=== PATIENT | male | born 1945 | race Caucasian/White ===

== ENCOUNTER 2017-02-23 17:50 | Inpatient (IN) | payer MEDICARE ==
[~2017-02-23] VITALS: Ht 172.7 cm; Wt 112.0 kg
[~2017-02-23 17:50] MED LIST: ALBU8I INH; ASPI81 PO; ATOR10 PO; CARV3.125 PO; CLOP75 PO; HYDR50TA5 PO; NITR.4; OXYC1SOL5 PO; POTA-243 PO; RAMI2.5 PO
[2017-02-23 17:55] VITALS: BP 130/100; PULSE 133; RESP 37; TEMP 99.8; O2SAT 92
[2017-02-23] MEDS ORDERED: DILTIAZEM HCL 25 MG/5 ML VIAL ONE (18:04)
--- NOTE | 2017-02-23 18:11 | PD ---
HPI Chief Complaint: SOB Time Seen by Provider: 18:03 Travel History International Travel<30 days: No Contact w/Intl Traveler<30days: No History of Present Illness HPI 72yo M with PMH of CVA, HTN presents to the ED with c/o sob for a few weeks. Pt said he slipped and fell on right hip today and could not get up for 12 hours. Denies any head trauma. Pt has lower extremity wounds for 4 months. Denies any chest pain, n/v, abdominal pain, focal weakness or numbness. Pt had NSTEMI in 05/2015 PCI stent mid LAD by Dr. [place]. [facility] Past Medical History Arthritis: No Blood Disorders: No Anxiety: No Depression: No Heart Rhythm Problems: No Cancer: No Cardiovascular Problems: Yes High Cholesterol: Yes () Chest Pain: No Congestive Heart Failure: No Cerebrovascular Accident: Yes Diminished Hearing: No Endocrine: No Gastrointestinal Disorders: Yes (cholecystecomy 2006) Genitourinary: No Hypertension: Yes Immune Disorder: No Musculoskeletal: No Neurologic: Yes (Stroke February 2011) Psychiatric: No Reproductive: No Respiratory: No Migraines: No Seizures: No Sickle Cell Disease: No Past Surgical History Abdominal Surgery: No Cardiac Surgery: No Cholecystectomy: Yes Ear Surgery: No Endocrine Surgery: No Eye Surgery: No Genitourinary Surgery: No Gynecologic Surgery: No Oral Surgery: No Thoracic Surgery: No Other Surgery: Yes Social History Alcohol Use: Yes (OCCASSIONAL) Tobacco Use: Yes (1/2 PACK PER DAY) Substance Use: No Allergies-Medications (Allergen,Severity, Reaction): Coded Allergies: azithromycin (Unverified Allergy, Severe, Swelling, 10/28/16) erythromycin base (Unverified Allergy, Severe, Swelling, 10/28/16) penicillin G (Unverified Allergy, Severe, Swelling, 10/28/16) Reported Meds & Prescriptions Reported Meds & Active Scripts Active Nitroglycerin Tab 0.4 Mg Sl (Nitroglycerin) 0.4 Mg Subl 0.4 Mg .XX PRN 31 Days Oxycodone/Acetaminophen 5-325 mg/5Ml (Oxycodone W/ Acetaminophen) 5 mg/325 mg Tab 1 Tab PO Q6H PRN Lipitor 10 mg tab (Atorvastatin) 10 Mg Tab 10 Mg PO HS 31 Days Aspirin Low Strength (Aspirin) 81 Mg Chw 162 Mg PO DAILY 31 Days Coreg 3.125 mg (Carvedilol) 3.125 Mg Tab 3.125 Mg PO BID 31 Days Plavix (Clopidogrel Bisulfate) 75 Mg Tab 75 Mg PO DAILY 31 Days Ramipril 2.5 Mg Cap 2.5 Mg PO DAILY 31 Days Reported Ventolin Hfa (Albuterol Sulfate) 8 Gm Aero 1 Puff INH Q4H PRN * SHAKE WELL BEFORE USE * K-Dur (Potassium Chloride) 10 Meq Tabcr 10 Meq PO DAILY Hydrochlorothiazide 50 Mg Tab 50 Mg PO DAILY Review of Systems Except as stated in HPI: all other systems reviewed are Neg Physical Exam Narrative GENERAL: 72yo M in moderate distress. SKIN: Focused skin assessment warm/dry. HEAD: Atraumatic. Normocephalic. EYES: Pupils equal and round. No scleral icterus. No injection or drainage. ENT: No nasal bleeding or discharge. Mucous membranes pink and moist. NECK: Trachea midline. No JVD. CARDIOVASCULAR: Tachycardic in the 120s. No murmur appreciated. RESPIRATORY: + accessory muscle use.Decreased breath sounds. GASTROINTESTINAL: Abdomen soft, non-tender, nondistended. . MUSCULOSKELETAL:Bilateral lower extremity edema, nixon scaling rash that has been there for months. Right leg has some erythema surrounding the rash. NEUROLOGICAL: Awake and alert. No obvious cranial nerve deficits. Motor grossly within normal limits. Normal speech. PSYCHIATRIC: Appropriate mood and affect; insight and judgment normal. Data Data Last Documented VS Vital Signs Date Time Temp Pulse Resp B/P (MAP) Pulse Ox O2 Delivery O2 Flow Rate FiO2 02/23/17 19:20 127 20 171/87 (115) 100 BiPAP 60 02/23/17 18:40 4.00 02/23/17 17:55 99.8 Orders Orders Diltiazem Inj (Cardizem Inj) (02/23/17 18:04) Complete Blood Count With Diff (02/23/17 18:08) Basic Metabolic Panel (Bmp) (02/23/17 18:08) Act Partial Throm Time (Ptt) (02/23/17 18:08) Prothrombin Time / Inr (Pt) (02/23/17 18:08) Magnesium (Mg) (02/23/17 18:08) Ckmb (Isoenzyme) Profile (02/23/17 18:08) Troponin I (02/23/17 18:08) Arterial Blood Gas (Abg) (02/23/17 18:08) Chest, Single Ap (02/23/17 18:08) Methylprednisolone So Succ Inj (Solumedr (02/23/17 18:15) Albuterol-Ipratropium Neb (Duoneb Neb) (02/23/17 18:15) Hip, Uni(Ap&Lat) W Ap Pelvis (02/23/17 ) Blood Culture (02/23/17 18:11) Lactic Acid Sepsis Protocol (02/23/17 18:11) Diltiazem Inj (Cardizem Inj) (02/23/17 18:45) Sodium Chlor 0.9% 1000 Ml Inj (Ns 1000 M (02/23/17 19:30) Sodium Chlor 0.9% 1000 Ml Inj (Ns 1000 M (02/23/17 19:30) Vancomycin Inj (Vancomycin Inj) (02/23/17 19:30) Aztreonam Inj (Azactam Inj) (02/23/17 19:30) CKMB (02/23/17 18:24) CKMB% (02/23/17 18:24) Aspirin Chew (Aspirin Chew) (02/24/17 09:00) Atorvastatin (Lipitor) (02/23/17 21:00) Carvedilol (Coreg) (02/23/17 21:00) Clopidogrel (Plavix) (02/24/17 09:00) Nitroglycerin Sl (Nitrostat Sl) (02/23/17 19:45) Oxycodone-Acetamin 5-325 Mg (Percocet (02/23/17 19:45) Admit To Inpatient (02/23/17 ) Code Status (02/23/17 19:42) Vital Signs (Adult) ADAIR.Q1H (02/23/17 19:42) Elevate Head Of Bed (02/23/17 19:42) Activity Oob With Assistance (02/23/17 19:42) Intake + Output Q1H (02/23/17 19:42) Diet Npo (02/24/17 Breakfast) Sodium Chlor 0.9% 1000 Ml Inj (Ns 1000 M (02/23/17 19:42) Sodium Chloride 0.9% Flush (Ns Flush) (02/23/17 19:45) Sodium Chloride 0.9% Flush (Ns Flush) (02/23/17 21:00) Acetaminophen (Tylenol) (02/23/17 19:45) Morphine Inj (Morphine Inj) (02/23/17 19:45) Famotidine Inj (Pepcid Inj) (02/23/17 21:00) Lorazepam Inj (Ativan Inj) (02/23/17 19:45) Ondansetron Inj (Zofran Inj) (02/23/17 19:45) Zolpidem (Ambien) (02/23/17 19:45) Albuterol-Ipratropium Neb (Duoneb Neb) (02/23/17 20:00) Albuterol-Ipratropium Neb (Duoneb Neb) (02/23/17 19:45) Complete Blood Count With Diff (02/24/17 04:00) Comprehensive Metabolic Panel (02/24/17 04:00) Troponin I (02/23/17 19:42) Troponin I (02/24/17 01:42) Magnesium (Mg) (02/24/17 04:00) Phosphorus (Po4) (02/24/17 04:00) Lactic Acid (02/24/17 04:00) Chest, Single Ap (02/24/17 ) Electrocardiogram (02/23/17 19:42) Electrocardiogram (02/24/17 01:42) Pt Request For Service (02/23/17 19:42) Consult Cardiology (02/23/17 ) Cobbler Mckay / Telemetry ADAIR.Q8H (02/23/17 19:42) Scd Bilateral/Knee High ADAIR.BID (02/23/17 19:42) Francis Bilateral/Knee High ADAIR.QSHIFT (02/23/17 19:42) ^ Initiate Protocol (02/23/17 19:42) Instruction (02/23/17 19:42) Misc Nursing Information (02/23/17 19:45) Chlorhexidine 2% Cloth (Chlorhexidine 2% (02/24/17 04:00) Chlorhexidine 2% Cloth (Chlorhexidine 2% (02/23/17 19:45) Mrsa Pcr Surveillance (02/23/17 19:42) Docusate Sodium-Senna (Roxanne-Colace) (02/23/17 21:00) Magnesium Hydroxide Liq (Milk Of Magnesi (02/23/17 19:45) Sennosides (Senokot) (02/23/17 19:45) Bisacodyl Supp (Dulcolax Supp) (02/23/17 19:45) Lactulose Liq (Lactulose Liq) (02/23/17 19:45) Heparin Inj (Heparin Inj) (02/24/17 01:45) Heparin Inj (Heparin Inj) (02/24/17 01:45) Heparin-D5w 25,000 U/250 Ml (Heparin-D5w (02/23/17 19:45) Act Partial Throm Time (Ptt) (02/23/17 19:42) Prothrombin Time / Inr (Pt) (02/23/17 19:42) Cbc No Diff, Includes Plts (02/23/17 19:42) Act Partial Throm Time (Ptt) (02/24/17 02:42) Occult Blood (Hemoccult) Stool (02/23/17 19:42) Inpatient Certification (02/23/17 ) Blood Culture (02/23/17 19:45) Sputum Culture And Gram Stain (02/23/17 19:45) Urine Culture (02/23/17 19:45) Levofloxacin 750 Mg Premix Inj (Levaquin (02/23/17 20:00) Vancomycin Consult Pharmacy (Vancomycin (02/23/17 20:00) Aspirin Ec (Ecotrin Ec) (02/24/17 09:00) Cobbler Mckay / Telemetry ADAIR.Q8H (02/23/17 19:50) Heparin Inj (Heparin Inj) (02/24/17 02:00) Heparin Inj (Heparin Inj) (02/24/17 02:00) Heparin-D5w 25,000 U/250 Ml (Heparin-D5w (02/23/17 20:00) Admit Order (Ed Use Only) (02/23/17 19:52) Labs Laboratory Tests Test 02/23/17 18:24 02/23/17 19:30 White Blood Count 27.8 TH/MM3 Red Blood Count 4.83 MIL/MM3 Hemoglobin 14.2 GM/DL Hematocrit 42.7 % Mean Corpuscular Volume 88.5 FL Mean Corpuscular Hemoglobin 29.3 PG Mean Corpuscular Hemoglobin Concent 33.2 % Red Cell Distribution Width 14.4 % Platelet Count 172 TH/MM3 Mean Platelet Volume 9.4 FL Neutrophils (%) (Auto) 96.7 % Lymphocytes (%) (Auto) 1.7 % Monocytes (%) (Auto) 1.4 % Eosinophils (%) (Auto) 0.0 % Basophils (%) (Auto) 0.2 % Neutrophils # (Auto) 26.9 TH/MM3 Lymphocytes # (Auto) 0.5 TH/MM3 Monocytes # (Auto) 0.4 TH/MM3 Eosinophils # (Auto) 0.0 TH/MM3 Basophils # (Auto) 0.1 TH/MM3 CBC Comment DIFF FINAL Differential Comment Prothrombin Time 13.5 SEC Prothromb Time International Ratio 1.3 RATIO Activated Partial Thromboplast Time 35.6 SEC Blood Urea Nitrogen 35 MG/DL Creatinine 1.93 MG/DL Random Glucose 138 MG/DL Calcium Level 9.4 MG/DL Magnesium Level 1.9 MG/DL Sodium Level 136 MEQ/L Potassium Level 4.3 MEQ/L Chloride Level 99 MEQ/L Carbon Dioxide Level 28.5 MEQ/L Anion Gap 9 MEQ/L Estimat Glomerular Filtration Rate 34 ML/MIN Lactic Acid Level 3.2 mmol/L Total Creatine Kinase 1610 U/L Creatine Kinase MB 38.4 NG/ML Creatine Kinase MB % 2.4 % Troponin I 13.40 NG/ML Blood Gas Puncture Site RT RADIAL Blood Gas Patient Temperature 37.0 Blood Gas HCO3 27 mmol/L Blood Gas Base Excess 1.4 mmol/L Blood Gas Oxygen Saturation 98 % Arterial Blood pH 7.35 Arterial Blood Partial Pressure CO2 50 mmHg Arterial Blood Partial Pressure O2 245 mmHG Arterial Blood Oxygen Content 18.6 Vol % Arterial Blood Carboxyhemoglobin 1.2 % Arterial Blood Methemoglobin 0.5 % Blood Gas Hemoglobin 13.1 G/DL Oxygen Delivery Device BiPAP Blood Gas Ventilator Setting IPAP 20 EPAP 5 Blood Gas Inspired Oxygen 60 % [facility] Medical Decision Making Medical Screen Exam Complete: Yes Emergency Medical Condition: Yes Interpretation(s) Multiple EKGs done, EKG after cardizem showed sinus tachycardia at 122bpm. LAD. Q waves II, III, aVF. Differential Diagnosis Rhabdomyolysis vs. ACS vs. sepsis vs. pneumonia vs. cellulitis Narrative Course 72yo M was brought in because he slip and fell and could not get up for 12 hours. Said he has been sob for 3 weeks. Given 1 nebulizer treatment by EVAC which helped a little. Pt's O2 sat is in the low 90s on 3L NC. However, pt is very tachypneic breathing in the 40s. Pt is also tachycardic in the 130s. Cardizem given but HR only went down to 120s and repeat EKG had some p waves. Pt given NS IVF. Labs reviewed, leukocytosis at 27.8. H/H normal at 14.2/ 42.7. Lactic acid elevated at 3.2. Creatinine elevated at 1.93 which is increased from baseline. CXR showed cardiomegaly. No effusion or pneumothorax. Xray right hip showed suboptical exam. No displaced fracture or dislocation. Total of 2L NC IVS ordered as well as vancomycin and aztreonam. Pt placed on BIPAP because he is tachypneic. He said the nebulizer treatment helps a little but not really. Pt appears more comfortable on the BIPAP. Discussed with Dr. Roman and accepted to his service. CPK is elevated at 1610. Troponin is elevated at 13.40. Pt denies any chest pain. Denies any blood in stool or black stool. Do not see stemi criteria on repeat EKG when rate has slowed down a bit. Discussed with Dr. Hernandez from cardiology and will start on heparin. Critical Care Narrative Aggregate critical care time was 50 minutes. Time to perform other separately billable procedures was not included in the critical care time. My time did not include minutes spent treating any other patients simultaneously or on activities that did not directly contribute to the patient's treatment. The services I provided to this patient were to treat and/or prevent clinically significant deterioration that could result in: cardiovascular collapse or . I provided critical care services requiring my management, as noted below: Chart data review, documentation time, medication orders and management, vital sign assessments/reviewing monitor data, ordering and reviewing lab tests, ordering and interpreting/reviewing x-rays and diagnostic studies, care of the patient and discussion of the patient with the admitting physicians. Sepsis Criteria SIRS Criteria (2 or more): Heart rate over 90, WBC > 24057, < 4000 or > 10% bands Sepsis Criteria (SIRS+source): Infect source susp/known Severe Sepsis (+one): Lactate >2, Acute Oliguria/Renal Failure Diagnosis Primary Impression: Severe sepsis Additional Impressions: Non-ST elevation KS (NSTEMI) Rhabdomyolysis Qualified Codes: T79.6XXA - Traumatic ischemia of muscle, initial encounter Admitting Information Admitting Physician Requests: Roxanna Marie DO Feb 23, 2017 18:11
[2017-02-23] MEDS ORDERED: methylPREDNISolone SOD SUCC 125 MG/2 ML VIAL IV PUSH ONE (18:15)
[2017-02-23 18:40] VITALS: O2SAT 92
[2017-02-23] MEDS: RESP: ALBUTEROL 2.5 MG/IPRATROPIUM 0.5 MG NEB (SCH) INH ×2 (18:42→22:47)
[2017-02-23] MEDS ORDERED: DILTIAZEM HCL 25 MG/5 ML VIAL IV ONE (18:45)
--- NOTE | 2017-02-23 18:45 | RADRPT ---
EXAM DATE/TIME: 02/23/2017 18:23 [facility] COMPARISON: No previous studies available for comparison. INDICATIONS : Short of breath MEDICAL HISTORY : Hypertension. SURGICAL HISTORY : None. ENCOUNTER: Initial ACUITY: 1 day PAIN SCORE: 0/10 LOCATION: chest FINDINGS: A single view of the chest demonstrates cardiomegaly. Minimal basilar atelectasis. No effusion. No pn eumothorax. Tortuous aorta. CONCLUSION: 1. Cardiomegaly. No effusion or pneumothorax. Minimal basilar atelectasis. Helder Hernandez MD on February 23, 2017 at 18:42 Board Certified Radiologist. This report was verified electronically.
--- NOTE | 2017-02-23 18:47 | RADRPT ---
EXAM DATE/TIME: 02/23/2017 18:25 [facility] COMPARISON: No previous studies available for comparison. INDICATIONS : Right hip pain, fell MEDICAL HISTORY : Hypertension. SURGICAL HISTORY : None. ENCOUNTER: Initial ACUITY: 1 day PAIN SCORE: 3/10 LOCATION: Right Hip FINDINGS: Examination of the right hip was performed with AP Pelvis. The primary and secondary trabecular gregorio arsalan of the femoral neck is intact. The hip joint is of normal width without significant sclerosis or bony hypertrophy. The acetabulum is grossly intact. CONCLUSION: 1. Suboptimal exam due to patient size. No displaced fracture or dislocation identified. Helder Hernandez MD on February 23, 2017 at 18:44 Board Certified Radiologist. This report was verified electronically.
[2017-02-23 18:57] LABS: AUTOMATED NEUTROPHIL # 26.9 TH/MM3 (1.8-7.7); BASOPHIL # 0.1 TH/MM3 (0-0.2); BASOPHIL % 0.2 % (0.0-2.0); HEMATOCRIT 42.7 % (39.0-51.0); HEMO FLAGS DIFF FINAL; LYMPH % 1.7 % (9.0-44.0); LYMPHOCYTE # 0.5 TH/MM3 (1.0-4.8); MEAN CELL VOLUME 88.5 FL (80.0-100.0); MEAN CORPUSCULAR HEMOGLOBIN 29.3 PG (27.0-34.0); MEAN CORPUSCULAR HGB CONC 33.2 % (32.0-36.0); MONO % 1.4 % (0.0-8.0); NEUT % 96.7 % (16.0-70.0); PLATELET COUNT 172 TH/MM3 (150-450); RED BLOOD COUNT 4.83 MIL/MM3 (4.50-5.90); RED CELL DISTRIBUTION WIDTH 14.4 % (11.6-17.2); WHITE BLOOD COUNT 27.8 TH/MM3 (4.0-11.0)
[2017-02-23 19:08] LABS: APTT (PATIENT) 35.6 SEC (24.3-30.1); BICARBONATE 28.5 MEQ/L (21.0-32.0); INTERNATIONAL NORMALIZED RATIO 1.3 RATIO; MAGNESIUM 1.9 MG/DL (1.5-2.5); POTASSIUM 4.3 MEQ/L (3.5-5.1); PROTHROMBIN TIME - PATIENT 13.5 SEC (9.8-11.6)
[2017-02-23 19:10] VITALS: O2SAT 100
[2017-02-23 19:20] VITALS: BP 171/87; PULSE 127; RESP 20; O2SAT 100
[2017-02-23] MEDS ORDERED: VANCOMYCIN INJ 1,900 MG in SODIUM CHLORID 0.9% 500 ML INJ 500 ML IV ONE (19:30)
[2017-02-23] MEDS ORDERED: SODIUM CHLOR 0.9% 1000 ML INJ 1,000 ML IV ONE ×2 (19:30)
[2017-02-23] MEDS ORDERED: AZTREONAM INJ 2,000 MG in SODIUM CHLORIDE 0.9% INJ 100 ML IV ONE (19:30)
[2017-02-23] MEDS ORDERED: ZOLPIDEM TARTRATE 5 MG TAB PO PRN (19:45)
[2017-02-23] MEDS ORDERED: MORPHINE SULFATE 4 MG/ML INJ IV PUSH PRN (19:45)
[2017-02-23] MEDS ORDERED: NITROGLYCERIN 0.4 MG SL 25 TABS/BTL SL PRN (19:45)
[2017-02-23] MEDS ORDERED: MAGNESIUM HYDROXIDE SUSP 30 ML CUP PO PRN (19:45)
[2017-02-23] MEDS ORDERED: SODIUM CHLORIDE 0.9% FLUSH 10 ML FLUSH IV FLUSH PRN (19:45)
[2017-02-23] MEDS ORDERED: LACTULOSE SYRUP 20 GM/30 ML CUP PO PRN (19:45)
[2017-02-23] MEDS ORDERED: MISCELLANEOUS NURSING INFORMATION XX SCH (19:45)
[2017-02-23] MEDS ORDERED: BISACODYL 10 MG SUPP RECTAL PRN (19:45)
[2017-02-23] MEDS ORDERED: CHLORHEXIDINE GLUCONATE 2 % 1 PACK (2 CLOTHS) TOP PRN (19:45)
[2017-02-23] MEDS ORDERED: oxyCODONE/ACETAMINOPHEN 5 MG/325 MG TAB PO PRN (19:45)
[2017-02-23] MEDS ORDERED: ACETAMINOPHEN 325 MG TAB PO PRN (19:45)
[2017-02-23] MEDS ORDERED: SENNOSIDES 8.6 MG TAB PO PRN (19:45)
[2017-02-23] MEDS ORDERED: HEPARIN-D5W 25,000 U/250 ML 250 ML IV PRN (19:45)
[2017-02-23] MEDS ORDERED: ONDANSETRON HCL 4 MG/2 ML VIAL IV PUSH PRN (19:45)
[2017-02-23] MEDS ORDERED: LORazepam 2 MG/ML VIAL IV PUSH PRN (19:45)
--- NOTE | 2017-02-23 19:48 | HHI.HP ---
HPI Service Critical Care Medicine Primary Care Physician No Primary Care Physician Admission Diagnosis Diagnosis: Travel History International Travel<30 Days: No Contact w/Intl Traveler <30 Da: No Traveled to Known Affected Are: No History of Present Illness 72-year-old pleasant gentleman with past medical history of of CVA, HTN coronary artery disease status post stent placement to his mid LAD by Dr. Washington in May 2015 presents with complaints of shortness of breath that progressively worsening over last few weeks. Patient says he also slipped and fell on right hip today and could not get up for 12 hours. Denies any head trauma. He has a chronic venostatic lower extremity wounds for about last 4 months. Denies any chest pain, nausea or vomiting, abdominal pain, focal weakness or numbness. Review of Systems Constitutional: COMPLAINS OF: Diaphoretic episodes, DENIES: Fatigue, Fever, Weight gain, Weight loss, Chills, Dizziness, Change in appetite, Night Sweats Endocrine: DENIES: Heat/cold intolerance, Polydipsia, Polyuria, Polyphagia Eyes: DENIES: Blurred vision, Diplopia, Eye inflammation, Eye pain, Vision loss , Photosensitivity, Double Vision Ears, nose, mouth, throat: DENIES: Tinnitus, Hearing loss, Vertigo, Nasal discharge, Oral lesions, Throat pain, Hoarseness, Ear Pain, Running Nose, Epistaxis, Sinus Pain, Toothache, Odynophagia Respiratory: COMPLAINS OF: Shortness of breath, DENIES: Apneas, Cough, Snoring , Wheezing, Hemoptysis, Sputum production Cardiovascular: COMPLAINS OF: Lower Extremity Edema, DENIES: Chest pain, Palpitations, Syncope, Dyspnea on Exertion, PND, Orthopnea, Claudication Gastrointestinal: DENIES: Abdominal pain, Black stools, Bloody stools, Constipation, Diarrhea, Nausea, Vomiting, Difficulty Swallowing, Anorexia Genitourinary: DENIES: Sexual dysfunction, Urinary frequency, Urinary incontinence, Urgency, Hematuria, Dysuria, Nocturia, Penile Discharge, Testicular Pain, Testicular Swelling Musculoskeletal: DENIES: Joint pain, Muscle aches, Stiffness, Joint Swelling, Back pain, Neck pain Integumentary: DENIES: Abnormal pigmentation, Nail changes, Pruritus, Rash Hematologic/lymphatic: DENIES: Bruising, Lymphadenopathy Immunologic/allergic: DENIES: Eczema, Urticaria Neurologic: DENIES: Abnormal gait, Headache, Localized weakness, Paresthesias, Seizures, Speech Problems, Tremor, Poor Balance Psychiatric: DENIES: Anxiety, Confusion, Mood changes, Depression, Hallucinations, Agitation, Suicidal Ideation, Homicidal Ideation, Delusions Past Family Social History Allergies: Coded Allergies: azithromycin (Unverified Allergy, Severe, Swelling, 10/28/16) erythromycin base (Unverified Allergy, Severe, Swelling, 10/28/16) penicillin G (Unverified Allergy, Severe, Swelling, 10/28/16) Past Medical History CVA, Bilateral lower extremity edema Hypertension Coronary artery disease Status post stent placement in mid LAD in May 2012/Dr. Washington Past Surgical History Cholecystectomy Percutaneous angioplasty to LAD in May 2012 Reported Medications Reported Meds & Active Scripts Active Nitroglycerin Tab 0.4 Mg Sl (Nitroglycerin) 0.4 Mg Subl 0.4 Mg .XX PRN 31 Days Oxycodone/Acetaminophen 5-325 mg/5Ml (Oxycodone W/ Acetaminophen) 5 mg/325 mg Tab 1 Tab PO Q6H PRN Lipitor 10 mg tab (Atorvastatin) 10 Mg Tab 10 Mg PO HS 31 Days Aspirin Low Strength (Aspirin) 81 Mg Chw 162 Mg PO DAILY 31 Days Coreg 3.125 mg (Carvedilol) 3.125 Mg Tab 3.125 Mg PO BID 31 Days Plavix (Clopidogrel Bisulfate) 75 Mg Tab 75 Mg PO DAILY 31 Days Ramipril 2.5 Mg Cap 2.5 Mg PO DAILY 31 Days Reported Ventolin Hfa (Albuterol Sulfate) 8 Gm Aero 1 Puff INH Q4H PRN * SHAKE WELL BEFORE USE * K-Dur (Potassium Chloride) 10 Meq Tabcr 10 Meq PO DAILY Hydrochlorothiazide 50 Mg Tab 50 Mg PO DAILY Active Ordered Medications Current Medications Medications (Trade) Dose Ordered Sig/Alexandro Route PRN Reason Start Time Stop Time Status Last Admin Dose Admin Vancomycin HCl 1900 mg/Sodium Chloride 519 ml @ 250 mls/hr ONCE ONCE IV 02/23/17 19:30 02/23/17 21:34 Aspirin (Aspirin Chew) 162 mg DAILY PO 02/24/17 09:00 Atorvastatin Calcium (Lipitor) 10 mg HS PO 02/23/17 21:00 Carvedilol (Coreg) 3.125 mg BID PO 02/23/17 21:00 Clopidogrel Bisulfate (Plavix) 75 mg DAILY PO 02/24/17 09:00 Nitroglycerin (Nitrostat Sl) 0.4 mg Q5M PRN SL CHEST PAIN 02/23/17 19:45 Oxycodone/ Acetaminophen (Percocet 5-325 Mg) 1 tab Q6H PRN PO PAIN SCALE 3 TO 5 02/23/17 19:45 Future Hold Sodium Chloride 1,000 ml @ 84 mls/hr [id number] IV 02/23/17 19:42 Sodium Chloride (NS Flush) 2 ml UNSCH PRN IV FLUSH FLUSH AFTER USING IV ACCESS 02/23/17 19:45 Sodium Chloride (NS Flush) 2 ml BID IV FLUSH 02/23/17 21:00 Acetaminophen (Tylenol) 650 mg Q6H PRN PO PAIN 1-5 AND/OR FEVER >101F 02/23/17 19:45 Morphine Sulfate (Morphine Inj) 2 mg Q2H PRN IV PUSH PAIN SCALE 6 TO 10 02/23/17 19:45 Famotidine (Pepcid Inj) 20 mg DAILY IV PUSH 02/23/17 21:00 Lorazepam (Ativan Inj) 1 mg Q1H PRN IV PUSH Agitation/Sedation 02/23/17 19:45 Ondansetron HCl (Zofran Inj) 4 mg Q6H PRN IV PUSH NAUSEA OR VOMITING 02/23/17 19:45 Zolpidem Tartrate (Ambien) 5 mg HS PRN PO INSOMNIA 02/23/17 19:45 Albuterol/ Ipratropium (Duoneb Neb) 1 ampule Q4HR NEB INH 02/23/17 20:00 Albuterol/ Ipratropium (Duoneb Neb) 1 ampule Q2HR NEB PRN INH WHEEZING 02/23/17 19:45 Miscellaneous Information 1 [id number] XX 02/23/17 19:45 Chlorhexidine Gluconate (Chlorhexidine 2% Cloth) 3 pack Taper DAILY@04 TOP 02/24/17 04:00 02/20/18 03:59 Chlorhexidine Gluconate (Chlorhexidine 2% Cloth) 3 pack UNSCH PRN TOP HYGIENIC CARE 02/23/17 19:45 Senna/Docusate Sodium (Roxanne-Colace) 1 tab BID PO 02/23/17 21:00 Magnesium Hydroxide (Milk Of Magnesia Liq) 30 ml Q12H PRN PO Mild constipation 02/23/17 19:45 Sennosides (Senokot) 17.2 mg Q12H PRN PO Moderate constipation 02/23/17 19:45 Bisacodyl (Dulcolax Supp) 10 mg DAILY PRN RECTAL SEVERE CONSITIPATION 02/23/17 19:45 Lactulose (Lactulose Liq) 30 ml DAILY PRN PO SEVERE CONSITIPATION 02/23/17 19:45 Aztreonam 2000 mg/ Sodium Chloride 100 ml @ 200 mls/hr Q8H IV 02/23/17 20:00 Levofloxacin/ Dextrose 150 ml @ 100 mls/hr Q48H IV 02/23/17 20:00 Pharmacy Profile Note 0 ml @ 0 mls/hr UNSCH OTHER 02/23/17 20:00 Aspirin (Ecotrin Ec) 325 mg DAILY PO 02/24/17 09:00 Heparin Sodium (Porcine) (Heparin Inj) 5,000 units UNSCH PRN IV PUSH APTT LESS THAN 25 02/24/17 02:00 Heparin Sodium (Porcine) (Heparin Inj) 2,500 units UNSCH PRN IV PUSH APTT 25 TO 39 02/24/17 02:00 Heparin Sodium/ Dextrose 250 ml @ 10 mls/hr TITRATE PRN IV Coagulation Management 02/23/17 20:00 Family History No family history significant for early coronary artery disease or malignancy Social History Alcohol Use: Yes (OCCASSIONAL) Tobacco Use: Yes (1/2 PACK PER DAY) Substance Use: No Physical Exam Vital Signs Vital Signs Date Time Temp Pulse Resp B/P (MAP) Pulse Ox O2 Delivery O2 Flow Rate FiO2 02/23/17 19:20 127 20 171/87 (115) 100 BiPAP 60 02/23/17 18:40 92 Nasal Cannula 4.00 02/23/17 17:55 99.8 133 37 130/100 (110) 92 Nasal Cannula 4.00 Physical Exam GENERAL: 72 years old morbidly obese male in moderate respiratory distress on facemask BiPAP SKIN: Focused skin assessment warm/dry. HEAD: Atraumatic. Normocephalic. EYES: Pupils equal and round. No scleral icterus. No injection or drainage. ENT: No nasal bleeding or discharge. Mucous membranes pink and moist. NECK: Trachea midline. No JVD. CARDIOVASCULAR: Tachycardic in the 120s. No murmur appreciated. RESPIRATORY: + accessory muscle use.Decreased breath sounds. GASTROINTESTINAL: Abdomen soft, non-tender, nondistended. . MUSCULOSKELETAL:Bilateral lower extremity edema, nixon scaling rash that has been there for months. Right leg has some erythema surrounding the rash. NEUROLOGICAL: Awake and alert. No obvious cranial nerve deficits. Motor grossly within normal limits. Normal speech. Laboratory Laboratory Tests Test 02/23/17 18:24 White Blood Count 27.8 Red Blood Count 4.83 Hemoglobin 14.2 Hematocrit 42.7 Mean Corpuscular Volume 88.5 Mean Corpuscular Hemoglobin 29.3 Mean Corpuscular Hemoglobin Concent 33.2 Red Cell Distribution Width 14.4 Platelet Count 172 Mean Platelet Volume 9.4 Neutrophils (%) (Auto) 96.7 Lymphocytes (%) (Auto) 1.7 Monocytes (%) (Auto) 1.4 Eosinophils (%) (Auto) 0.0 Basophils (%) (Auto) 0.2 Neutrophils # (Auto) 26.9 Lymphocytes # (Auto) 0.5 Monocytes # (Auto) 0.4 Eosinophils # (Auto) 0.0 Basophils # (Auto) 0.1 CBC Comment DIFF FINAL Differential Comment Prothrombin Time 13.5 Prothromb Time International Ratio 1.3 Activated Partial Thromboplast Time 35.6 Blood Urea Nitrogen 35 Creatinine 1.93 Random Glucose 138 Calcium Level 9.4 Magnesium Level 1.9 Sodium Level 136 Potassium Level 4.3 Chloride Level 99 Carbon Dioxide Level 28.5 Anion Gap 9 Estimat Glomerular Filtration Rate 34 Lactic Acid Level 3.2 Total Creatine Kinase 1610 Troponin I 13.40 Date/Time Source Procedure Growth Status 02/23/17 18:24 Blood Peripheral Aerobic Blood Culture Pending Received 02/23/17 18:24 Blood Peripheral Anaerobic Blood Culture Pending Received Result Diagram: 02/23/17 1824 02/23/174 Caprini VTE Risk Assessment Caprini VTE Risk Assessment: Mod/High Risk (score >= 2) Caprini Risk Assessment Model Point Value = 1 Point Value = 2 Point Value = 3 Point Value = 5 Age 41-60 Minor surgery BMI > 25 kg/m2 Swollen legs Varicose veins or History of unexplained or recurrent spontaneous Oral contraceptives or hormone replacement Sepsis (< 1 month) Serious lung disease, including pneumonia (< 1 month) Abnormal pulmonary function Acute myocardial infarction Congestive heart failure (< 1 month) History of inflammatory bowel disease Medical patient at bed rest Age 61-74 Arthroscopic surgery Major open surgery (> 45 min) Laparoscopic surgery (> 45 min) Malignancy Confined to bed (> 72 hours) Immobilizing plaster cast Central venous access Age >= 75 History of VTE Family history of VTE Factor V Leiden Prothrombin [id number] Lupus anticoagulant Anticardiolipin antibodies Elevated serum homocysteine Heparin-induced thrombocytopenia Other congenital or acquired thrombophilia Stroke (< 1 month) Elective arthroplasty Hip, pelvis, or leg fracture Acute spinal cord injury (< 1 month) Prophylaxis Regimen Total Risk Factor Score Risk Level Prophylaxis Regimen 0-1 Low Early ambulation 2 Moderate Order ONE of the following: *Sequential Compression Device (SCD) *Heparin 5000 units SQ BID 3-4 Higher Order ONE of the following medications: *Heparin 5000 units SQ TID *Enoxaparin/Lovenox 40 mg SQ daily (WT < 150 kg, CrCl > 30 mL/min) *Enoxaparin/Lovenox 30 mg SQ daily (WT < 150 kg, CrCl > 10-29 mL/min) *Enoxaparin/Lovenox 30 mg SQ BID (WT < 150 kg, CrCl > 30 mL/min) AND/OR *Sequential Compression Device (SCD) 5 or more Highest Order ONE of the following medications: *Heparin 5000 units SQ TID (Preferred with Epidurals) *Enoxaparin/Lovenox 40 mg SQ daily (WT < 150 kg, CrCl > 30 mL/min) *Enoxaparin/Lovenox 30 mg SQ daily (WT < 150 kg, CrCl > 10-29 mL/min) *Enoxaparin/Lovenox 30 mg SQ BID (WT < 150 kg, CrCl > 30 mL/min) AND *Sequential Compression Device (SCD) Assessment and Plan Assessment and Plan Non-STEMI - Heparin drip - Continue aspirin and Plavix - Continue atorvastatin - Cardiology consultation - Serum troponin series - Series of EKGs - Echocardiogram Respiratory failure - Due to above - BiPAP when necessary - DuoNeb scheduled and when necessary Leukocytosis - Stress reaction to acute AR - Considering however underlying infection - Panculture - Broad-spectrum antibiotics for now - De-escalate or DC per sensitivity results Acute kidney injury - IV fluid hydration - Strict I's and O's - Monitor electrolytes and creatinine Rhabdo - Due to trauma mentioned in H&P - IV fluid hydration - Repeat CPK a.m. Hypertension - Coreg DVT GI prophylaxis - Teds SCDs - Heparin drip - IV Pepcid while nothing by mouth Critical Care: The total critical care time was 35 minutes. Time to perform other separately billable procedures was not included in the critical care time. Rich Roman MD Feb 23, 2017 19:48
[2017-02-23 19:52] LABS: CKMB 38.4 NG/ML (0.5-3.6)
[2017-02-23 20:00] VITALS: BP 139/86; PULSE 126; RESP 20; O2SAT 99
[2017-02-23] MEDS ORDERED: AZTREONAM INJ 2,000 MG in SODIUM CHLORIDE 0.9% INJ 100 ML IV SCH (20:00)
[2017-02-23] MEDS ORDERED: Vancomycin Consult Pharmacy 1 EA OTHER SCH (20:00)
[2017-02-23 20:46] LABS: LACTIC ACID GHOST NOT REPORTABLE
[2017-02-23] MEDS: DOCUSATE SODIUM 50 MG/SENNA 8.6 MG TAB PO SCH (21:00)
[2017-02-23] MEDS: SODIUM CHLOR 0.9% 1000 ML INJ 1,000 ML IV SCH (21:23)
[2017-02-23] MEDS: SODIUM CHLORIDE 0.9% FLUSH 10 ML FLUSH IV FLUSH SCH (21:23)
[2017-02-23] MEDS: LEVOFLOXACIN 750 MG PREMIX INJ 150 ML IV SCH (21:23)
[2017-02-23 21:30] LABS: HEMATOCRIT 38.9 % (39.0-51.0); MEAN CELL VOLUME 87.2 FL (80.0-100.0); MEAN CORPUSCULAR HEMOGLOBIN 28.5 PG (27.0-34.0); MEAN CORPUSCULAR HGB CONC 32.7 % (32.0-36.0); PLATELET COUNT 172 TH/MM3 (150-450); RED BLOOD COUNT 4.46 MIL/MM3 (4.50-5.90); RED CELL DISTRIBUTION WIDTH 13.8 % (11.6-17.2); WHITE BLOOD COUNT 37.5 TH/MM3 (4.0-11.0)
[2017-02-23 21:35] LABS: REVIEW FLAG FINAL
[2017-02-23 21:37] LABS: APTT (PATIENT) 36.2 SEC (24.3-30.1); INTERNATIONAL NORMALIZED RATIO 1.4 RATIO
[2017-02-23 22:25] LABS: BLOOD GAS BASE EXCESS 1.4 mmol/L (-2-2); BLOOD GAS CARBOXYHEMOGLOBIN 1.2 % (0-4); BLOOD GAS HCO3 27 mmol/L (22-26); BLOOD GAS METHEMOGLOBIN 0.5 % (0-2); BLOOD GAS O2 HGB SATURATION 98 % (90-100); BLOOD GAS OXYGEN CONTENT 18.6 Vol % (12.0-20.0); BLOOD GAS PCO2 50 mmHg (38-42); BLOOD GAS PO2 245 mmHG (61-120); BLOOD GAS TOTAL HGB 13.1 G/DL (12.0-16.0)
[2017-02-23 22:26] LABS: CRITICAL VALUE NO; DRAW SITE RT RADIAL; FIO2 60 %; NUMBER OF ARTERIAL PUNCTURES 1; OXYGEN DEVICE BiPAP; STAT YES; ULNAR PULSE PRESENT; VENT SETTINGS IPAP 20 EPAP 5
[2017-02-23 23:27] VITALS: BP 143/73; PULSE 99; RESP 20; O2SAT 97
[2017-02-24] VITALS (24 sets, daily range): BP systolic 84–121; BP diastolic 53–74; PULSE 92–117; RESP 22–120; TEMP 98–99; O2SAT 95–100
[2017-02-24] MEDS: CHLORHEXIDINE GLUCONATE 2 % 1 PACK (2 CLOTHS) TOP SCH (01:33)
[2017-02-24] MEDS: FAMOTIDINE 20 MG/2 ML VIAL IV PUSH SCH ×2 (01:41→09:00)
[2017-02-24] MEDS: ATORVASTATIN 10 MG TAB PO SCH ×2 (01:41→21:00)
[2017-02-24] MEDS: CARVEDILOL 3.125 MG TAB PO SCH ×3 (01:42→20:50)
[2017-02-24] MEDS ORDERED: HEPARIN SODIUM - IV 10,000 UNITS/10 ML VIAL IV PRN ×2 (01:45)
[2017-02-24] MEDS: SODIUM CHLOR 0.9% 1000 ML INJ 1,000 ML IV SCH ×2 (01:48→12:34)
[2017-02-24] MEDS ORDERED: HEPARIN SODIUM - IV 10,000 UNITS/10 ML VIAL IV PUSH PRN ×2 (02:00)
[2017-02-24 03:31] LABS: ALKALINE PHOSPHATASE 93 U/L (45-117); ALT (GPT) 36 U/L (12-78); ANION GAP 8 MEQ/L (5-15); AST (GOT) 89 U/L (15-37); BICARBONATE 24.8 MEQ/L (21.0-32.0); BLOOD UREA NITROGEN 39 MG/DL (7-18); CHLORIDE 107 MEQ/L (98-107); CREATINE KINASE 846 U/L (39-308); GLOMERULAR FILTRATION RATE 38 ML/MIN (>89); MAGNESIUM 1.8 MG/DL (1.5-2.5); POTASSIUM 4.7 MEQ/L (3.5-5.1); SODIUM (NA) 140 MEQ/L (136-145); TOTAL BILIRUBIN ADULT 0.5 MG/DL (0.2-1.0)
[2017-02-24 03:52] LABS: CKMB 21.7 NG/ML (0.5-3.6)
[2017-02-24] MEDS: HEPARIN-D5W 25,000 U/250 ML 250 ML IV PRN (04:04)
[2017-02-24] MEDS: AZTREONAM INJ 2,000 MG in SODIUM CHLORIDE 0.9% INJ 100 ML IV SCH ×3 (04:09→22:00)
--- NOTE | 2017-02-24 04:33 | RADRPT ---
EXAM DATE/TIME: 02/24/2017 03:25 [facility] COMPARISON: CHEST SINGLE AP, February 23, 2017, 18:23. INDICATIONS : Shortness of breath. MEDICAL HISTORY : Hypertension. SURGICAL HISTORY : None. ENCOUNTER: Subsequent ACUITY: 2 days PAIN SCORE: 0/10 LOCATION: Bilateral chest FINDINGS: Patient rotation towards the right face and asymmetric density right versus left. The lungs are symm etrically aerated and no definite infiltrate seen. Stable mild elevation right hemidiaphragm. When taking into account the rotational effects, no new findings seen.. CONCLUSION: No focal infiltrates seen. Cruz Connelly MD on February 24, 2017 at 4:31 Board Certified Radiologist. This report was verified electronically.
[2017-02-24] MEDS: RESP: ALBUTEROL 2.5 MG/IPRATROPIUM 0.5 MG NEB (SCH) INH ×5 (04:51→20:33)
--- NOTE | 2017-02-24 08:45 | HHI.CCPN ---
Subjective Remarks/Hospital Course 72-year-old pleasant gentleman with past medical history of of CVA, HTN coronary artery disease status post stent placement to his mid LAD by Dr. Washington in May 2015 presents with complaints of shortness of breath that progressively worsening over last few weeks. Patient says he also slipped and fell on right hip today and could not get up for 12 hours. Denies any head trauma. He has a chronic venostatic lower extremity wounds for about last 4 months. Denies any chest pain, nausea or vomiting, abdominal pain, focal weakness or numbness. 02/24 Patient is lying in bed in NAD. Afebrile.On Heparin drip. Objective Vital Signs Date Time Temp Pulse Resp B/P (MAP) Pulse Ox O2 Delivery O2 Flow Rate FiO2 02/24/17 07:56 98 Nasal Cannula 5.00 02/24/17 06:00 99 02/24/17 06:00 30 100/60 (73) 02/24/17 04:00 98.9 02/23/17 23:27 40 Intake and Output 02/24/17 02/24/17 02/25/17 08:00 16:00 00:00 Intake Total 1073 ml Output Total 350 ml Balance 723 ml Result Diagram: 02/23/17 2100 02/24/17 0243 Other Results L Laboratory Tests Test 02/23/17 18:24 02/23/17 19:30 02/23/17 21:00 02/23/17 21:05 White Blood Count 27.8 TH/MM3 37.5 TH/MM3 Red Blood Count 4.83 MIL/MM3 4.46 MIL/MM3 Hemoglobin 14.2 GM/DL 12.7 GM/DL Hematocrit 42.7 % 38.9 % Mean Corpuscular Volume 88.5 FL 87.2 FL Mean Corpuscular Hemoglobin 29.3 PG 28.5 PG Mean Corpuscular Hemoglobin Concent 33.2 % 32.7 % Red Cell Distribution Width 14.4 % 13.8 % Platelet Count 172 TH/MM3 172 TH/MM3 Mean Platelet Volume 9.4 FL 9.1 FL Neutrophils (%) (Auto) 96.7 % Lymphocytes (%) (Auto) 1.7 % Monocytes (%) (Auto) 1.4 % Eosinophils (%) (Auto) 0.0 % Basophils (%) (Auto) 0.2 % Neutrophils # (Auto) 26.9 TH/MM3 Lymphocytes # (Auto) 0.5 TH/MM3 Monocytes # (Auto) 0.4 TH/MM3 Eosinophils # (Auto) 0.0 TH/MM3 Basophils # (Auto) 0.1 TH/MM3 CBC Comment DIFF FINAL Differential Comment Prothrombin Time 13.5 SEC 14.0 SEC Prothromb Time International Ratio 1.3 RATIO 1.4 RATIO Activated Partial Thromboplast Time 35.6 SEC 36.2 SEC Blood Urea Nitrogen 35 MG/DL Creatinine 1.93 MG/DL Random Glucose 138 MG/DL Calcium Level 9.4 MG/DL Magnesium Level 1.9 MG/DL Sodium Level 136 MEQ/L Potassium Level 4.3 MEQ/L Chloride Level 99 MEQ/L Carbon Dioxide Level 28.5 MEQ/L Anion Gap 9 MEQ/L Estimat Glomerular Filtration Rate 34 ML/MIN Lactic Acid Level 3.2 mmol/L 2.6 mmol/L Total Creatine Kinase 1610 U/L Creatine Kinase MB 38.4 NG/ML Creatine Kinase MB % 2.4 % Troponin I 13.40 NG/ML 13.90 NG/ML Blood Gas Puncture Site RT RADIAL Blood Gas Patient Temperature 37.0 Blood Gas HCO3 27 mmol/L Blood Gas Base Excess 1.4 mmol/L Blood Gas Oxygen Saturation 98 % Arterial Blood pH 7.35 Arterial Blood Partial Pressure CO2 50 mmHg Arterial Blood Partial Pressure O2 245 mmHG Arterial Blood Oxygen Content 18.6 Vol % Arterial Blood Carboxyhemoglobin 1.2 % Arterial Blood Methemoglobin 0.5 % Blood Gas Hemoglobin 13.1 G/DL Oxygen Delivery Device BiPAP Blood Gas Ventilator Setting IPAP 20 EPAP 5 Blood Gas Inspired Oxygen 60 % Test 02/24/17 00:15 02/24/17 02:43 Nasal Screen MRSA (PCR) MRSA NOT DETECTED Blood Urea Nitrogen 39 MG/DL Creatinine 1.76 MG/DL Random Glucose 175 MG/DL Total Protein 7.4 GM/DL Albumin 2.1 GM/DL Calcium Level 8.3 MG/DL Phosphorus Level 3.5 MG/DL Magnesium Level 1.8 MG/DL Alkaline Phosphatase 93 U/L Aspartate Amino Transf (AST/SGOT) 89 U/L Alanine Aminotransferase (ALT/SGPT) 36 U/L Total Bilirubin 0.5 MG/DL Sodium Level 140 MEQ/L Potassium Level 4.7 MEQ/L Chloride Level 107 MEQ/L Carbon Dioxide Level 24.8 MEQ/L Anion Gap 8 MEQ/L Estimat Glomerular Filtration Rate 38 ML/MIN Lactic Acid Level 2.2 mmol/L Total Creatine Kinase 846 U/L Creatine Kinase MB 21.7 NG/ML Creatine Kinase MB % 2.6 % Troponin I 12.80 NG/ML Imaging Last Impressions Chest X-Ray 02/24/17 0000 Signed Impressions: Service Date/Time: Friday, February 24, 2017 03:25 - CONCLUSION: No focal infiltrates seen. Cruz Connelly MD Hip and Pelvis X-Ray 02/23/17 0000 Signed Impressions: Service Date/Time: Thursday, February 23, 2017 18:25 - CONCLUSION: 1. Suboptimal exam due to patient size. No displaced fracture or dislocation identified. Helder Hernandez MD Objective Remarks GENERAL: 72 years old morbidly obese male in moderate respiratory distress on facemask BiPAP SKIN: Focused skin assessment warm/dry. HEAD: Atraumatic. Normocephalic. EYES: Pupils equal and round. No scleral icterus. No injection or drainage. ENT: No nasal bleeding or discharge. Mucous membranes pink and moist. NECK: Trachea midline. No JVD. CARDIOVASCULAR: Tachycardic in the 120s. No murmur appreciated. RESPIRATORY: + accessory muscle use.Decreased breath sounds. GASTROINTESTINAL: Abdomen soft, non-tender, nondistended. . MUSCULOSKELETAL:Bilateral lower extremity edema, nixon scaling rash that has been there for months. Right leg has some erythema surrounding the rash. NEUROLOGICAL: Awake and alert. No obvious cranial nerve deficits. Motor grossly within normal limits. Normal speech. A/P Assessment and Plan Non-STEMI Resp Insuff Leukocytosis GUALBERTO Rhabdo Mild lactic acidemia Hypertension Chronic venous stasis Plan Neuro: Awake and alert Pulm: Continue with oxygen keep sat >92% Bronchodilators, NIPPV PRN for resp distress CV: Monitor HR and BP keep MAP>65mmHg Continue ASA< Lipitor, Coreg, Plavix. On Heparin drip- monitor PTT. For 2D echo, cards consulted : Monitor renal function, I/O's, avoid nephrotoxins On NS@84ml/hr GI: On PO diet ID: Continue with abx ( Aztreonam, Levaquin, Vanco) monitor for signs of infections ( Fever, WBC) Follow up on Blood and sputum cx Wound consult for Chronic venous stasis Heme: Monitor CBC, coags- on Heparin drip Endo: SSI for glycemic control GI prophylaxis- on Pepcid DVT prophylaxis- On Heparin drip Level 3 Zion Driver MD Feb 24, 2017 08:45
[2017-02-24] MEDS ORDERED: ASPIRIN 81 MG CHEW TAB PO SCH (09:00)
[2017-02-24] MEDS: SODIUM CHLORIDE 0.9% FLUSH 10 ML FLUSH IV FLUSH SCH ×2 (09:00→20:50)
[2017-02-24] MEDS: DOCUSATE SODIUM 50 MG/SENNA 8.6 MG TAB PO SCH ×2 (09:00→20:50)
--- NOTE | 2017-02-24 09:03 | MB ---
cc: DAYANARA ODONNELL DATE OF CONSULTATION 02/24/2017 DATE OF 1945 REASON FOR CONSULTATION Acute [id number] myocardial infarction. HISTORY OF PRESENT ILLNESS The patient is a 72-year-old white male with a history of CVA, hypertension, hyperlipidemia, coronary artery disease, mild ischemic cardiomyopathy who presented to the hospital after a fall. The patient states that ever since his stroke, he has had problems with balance and equilibrium. On the day before admission, he did fall to the ground after losing his balance. He was unable to get up for 12 hours. However, he was eventually able to drag himself to his phone to call emergency services. Troponin levels were checked here in the hospital and found to be abnormal. The patient denies any recent chest pains although he has experienced increased dyspnea probably for the past 12 weeks. He denies pleurisy, syncope, near-syncope, palpitations, change in chronic constant mild pedal edema, paroxysmal nocturnal dyspnea. He also denies fevers, although on the night before admission, he thinks he may have had some chills. PAST MEDICAL HISTORY 1. History of left posterior capsule CVA February 2011. 2. Hypertension 3. Hyperlipidemia 4. Coronary artery disease status post non-ST elevation myocardial infarction May 2015. Cardiac catheterization at that time by a Dr. Chris Washington showed 20% left main, 95% mid LAD stented with a 3.0 mm bare metal stent, 95% ostial diagonal stenosis, normal left circumflex, 50% proximal right coronary artery stenosis, 80% distal right coronary artery, 95% proximal posterior descending artery. also did bare-metal stenting of the posterolateral branch using a 2.5 mm stent the day after stenting the patient's left anterior descending. 5. History of mild ischemic cardiomyopathy with ejection fraction of 45% by cardiac catheterization last year with moderate to severe hypokinesis of the anterolateral wall. PAST SURGICAL HISTORY Cholecystectomy. MEDICATIONS Cardiac medications at home: 1. Lipitor 10 mg q.h.s. 2. Aspirin 162 mg daily 3. Coreg 3.125 mg b.i.d. 4. Ramipril 2.5 mg daily 5. Plavix 75 mg daily 6. K-Dur 10 mg once daily 7. Hydrochlorothiazide 50 mg daily ALLERGIES AZITHROMYCIN, ERYTHROMYCIN AND PENICILLIN. FAMILY HISTORY Noncontributory SOCIAL HISTORY The patient smokes about A half a pack of cigarettes per day. He denies alcohol abuse. REVIEW OF SYSTEMS As in the history of present illness, otherwise negative or noncontributory. He also denies headache, visual changes, unilateral weakness or numbness, abdominal pain, melena, dyspepsia. He has noted mild diarrhea in the last few days. PHYSICAL EXAM On physical examination, his blood pressure 100/60 with a pulse of 100, respirations 30. In general, he is a well-developed, well-nourished white male in no acute distress HEENT: On examination, jugular venous pressure is very difficult to assess. Carotid pulses are 2+ bilaterally without bruits. CHEST: Examination of the chest reveals clear lung hancock. CARDIAC: On cardiac examination, he has a regular rhythm and rate without S3, S4 or murmur. ABDOMEN: On abdominal examination, he has a soft, obese, nontender abdomen. Bowel sounds are present. There is no definite hepatosplenomegaly. EXTREMITIES: Examination of extremities reveals no clubbing, cyanosis or edema. There are severe chronic venostasis changes evident. EKG shows possible atrial fibrillation, inferior wall infarct, age undetermined, incomplete right bundle branch block, lateral T-wave abnormalities consider ischemia. LABORATORY DATA Includes WBC 37.5, hemoglobin 12.7, platelets 172. BUN 39, creatinine 1.76, troponin 13.9, CK 846, potassium 4.7. Chest x-ray shows no acute disease. IMPRESSION Acute [id number] myocardial infarction in this 72-year-old white male with a history of known coronary artery disease status post percutaneous coronary interventions by Dr. Chris Washington last year, history of CVA, hypertension, hyperlipidemia, ejection fraction 45%. Initial EKGs are suboptimal. They also suggest possible SVT. At this time, he is in sinus tachycardia. He has had no definite chest pain symptoms recently. His dyspnea may be his angina equivalent. His dyspnea has resolved. Because of the abnormal cardiac enzymes, he has been recommended repeat cardiac catheterization with possible percutaneous coronary intervention the risks of which have been explained him including, but not limited to , myocardial infarction, stroke, arrhythmia, bleeding, infection, renal failure. He agrees to proceed. RECOMMENDATIONS 1. Cardiac catheterization at some point this admission. We will wait for his renal function to return to baseline, and we will wait for further workup of his marked leukocytosis. 2. Continue beta kelsie therapy and hold STEVAN inhibitor given his renal insufficiency. 3. Continue daily aspirin and heparin. 4. Check a fasting lipid profile and continue statin therapy. 5. Repeat his EKG later today. MD OBDULIA Lincoln/MUKUND /8:29 AM /1:09 PM LANDY
[2017-02-24] MEDS: CLOPIDOGREL 75 MG TAB PO SCH (09:05)
[2017-02-24] MEDS: ASPIRIN EC 325 MG TABEC PO SCH (09:05)
[2017-02-24 09:08] LABS: APTT (PATIENT) 44.3 SEC (24.3-30.1); BASOPHIL % 0.1 % (0.0-2.0); HEMATOCRIT 35.5 % (39.0-51.0); HEMO FLAGS DIFF FINAL; LYMPH % 1.9 % (9.0-44.0); LYMPHOCYTE # 0.5 TH/MM3 (1.0-4.8); MEAN CORPUSCULAR HEMOGLOBIN 28.4 PG (27.0-34.0); MEAN CORPUSCULAR HGB CONC 32.3 % (32.0-36.0); MONO % 1.9 % (0.0-8.0); NEUT % 96.1 % (16.0-70.0); PLATELET COUNT 139 TH/MM3 (150-450); RED BLOOD COUNT 4.04 MIL/MM3 (4.50-5.90); WHITE BLOOD COUNT 27.1 TH/MM3 (4.0-11.0)
[2017-02-24 12:28] LABS: BLOOD GAS BASE EXCESS -1.7 mmol/L (-2-2); BLOOD GAS CARBOXYHEMOGLOBIN 0.6 % (0-4); BLOOD GAS HCO3 24 mmol/L (22-26); BLOOD GAS METHEMOGLOBIN 1.1 % (0-2); BLOOD GAS O2 HGB SATURATION 95 % (90-100); BLOOD GAS OXYGEN CONTENT 17.8 Vol % (12.0-20.0); BLOOD GAS PCO2 49 mmHg (38-42); BLOOD GAS PO2 106 mmHg (61-120); BLOOD GAS TOTAL HGB 13.2 G/DL (12.0-16.0); CRITICAL VALUE NO; DRAW SITE LT BRACHIAL; LITER FLOW 5 L/M; NUMBER OF ARTERIAL PUNCTURES 2; OXYGEN DEVICE NASAL CANNULA; STAT NO; TEMP CORR TO 98.6; ULNAR PULSE PRESENT
--- NOTE | 2017-02-24 12:36 | EKG ---
Date Performed: 02/23/2017 Time Performed: 18:09:45 PTAGE: 72 years EKG: Supraventricular tachycardia that kind that may be a kind of tachycardia where the mechanis m is not clear. 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 Compared to PREVIOUS TRACING the supraventricular rate is slower. PREVIOUS TRACIN02/23/2017 18.06 DOCTOR: Juan Pablo Newby Interpretating Date/Time 02/24/2017 12:35:48
--- NOTE | 2017-02-24 12:38 | EKG ---
Date Performed: 02/23/2017 Time Performed: 22:55:05 PTAGE: 72 years EKG: ATRIAL FIBRILLATION WITH RAPID VENTRICULAR RESPONSE Left anterior fascicular block with bun dle branch block. Baseline artifact. Compared to PREVIOUS TRACING heart rate is slower. PREVIOUS TRACIN02/23/2017 18.09 DOCTOR: Juan Pablo Newby Interpretating Date/Time 02/24/2017 12:36:54
--- NOTE | 2017-02-24 13:14 | EKG ---
Date Performed: 02/23/2017 Time Performed: 17:59:54 PTAGE: 72 years EKG: SUPRAVENTRICULAR TACHYCARDIA LEFT AXIS DEVIATION LEFT ANTERIOR FASCICULAR BLOCK RIGHT BUNDL E BRANCH BLOCK Compared to PREVIOUS TRACING , SVT is new. PREVIOUS TRACIN06/10/2015 06.07 DOCTOR: Juan Pablo Newby Interpretating Date/Time 02/24/2017 13:13:03
[2017-02-24 13:20] LABS: AUTOMATED NEUTROPHIL # 26.3 TH/MM3 (1.8-7.7); BASOPHIL % 0.1 % (0.0-2.0); EOSINOPHIL # 0.1 TH/MM3 (0-0.4); EOSINOPHIL % 0.2 % (0.0-4.0); HEMATOCRIT 36.3 % (39.0-51.0); HEMO FLAGS DIFF FINAL; LYMPH % 1.9 % (9.0-44.0); LYMPHOCYTE # 0.5 TH/MM3 (1.0-4.8); MEAN CELL VOLUME 87.3 FL (80.0-100.0); MEAN CORPUSCULAR HEMOGLOBIN 28.8 PG (27.0-34.0); MONO % 2.8 % (0.0-8.0); PLATELET COUNT 149 TH/MM3 (150-450); RED BLOOD COUNT 4.16 MIL/MM3 (4.50-5.90); RED CELL DISTRIBUTION WIDTH 14.2 % (11.6-17.2); WHITE BLOOD COUNT 27.7 TH/MM3 (4.0-11.0)
[2017-02-24 13:26] LABS: APTT (PATIENT) 44.8 SEC (24.3-30.1)
[2017-02-24 13:36] LABS: ALT (GPT) 38 U/L (12-78); ANION GAP 7 MEQ/L (5-15); AST (GOT) 85 U/L (15-37); BICARBONATE 24.7 MEQ/L (21.0-32.0); BLOOD UREA NITROGEN 49 MG/DL (7-18); CHLORIDE 108 MEQ/L (98-107); GLOMERULAR FILTRATION RATE 37 ML/MIN (>89); MAGNESIUM 2.1 MG/DL (1.5-2.5); SODIUM (NA) 140 MEQ/L (136-145)
[2017-02-24 13:38] LABS: ALKALINE PHOSPHATASE 103 U/L (45-117); TOTAL BILIRUBIN ADULT 0.5 MG/DL (0.2-1.0)
--- NOTE | 2017-02-24 14:56 | ECHRPT ---
Indication: CONCLUSIONS The left ventricular systolic function is mildly reduced with an estimated ejection fraction of 45%. Normal left ventricular size. [id number] mitral valve regurgitation. Aortic valve sclerosis is present. There is mild tricuspid valve regurgitation. BP: / HR: Rhythm: MEASUREMENTS (Male / Female) Normal Values Technical Quality:Technically difficult study 2D ECHO LV Diastolic Diameter PLAX 5.2 cm 4.2 - 5.9 / 3.9 - 5.3 cm LV Systolic Diameter PLAX 4.3 cm IVS Diastolic Thickness 1.1 cm 0.6 - 1.0 / 0.6 - 0.9 cm LVPW Diastolic Thickness 0.9 cm 0.6 - 1.0 / 0.6 - 0.9 cm LV Relative Wall Thickness 0.4 RV Internal Dim ED PLAX 3.4 cm LVOT Diameter 2.3 cm M-MODE Aortic Root Diameter MM 3.8 cm LA Systolic Diameter MM 3.6 cm LA Ao Ratio MM 0.9 DOPPLER AV Peak Velocity 199.0 cm/s AV Peak Gradient 15.8 mmHg AV Mean Gradient 8.0 mmHg AV Velocity Time Integral 36.4 cm LVOT Peak Velocity 66.2 cm/s LVOT Peak Gradient 1.8 mmHg LVOT Velocity Time Integral 12.1 cm AV Area Cont Eq vti 1.4 cm AV Area Cont Eq pk 1.4 cm FINDINGS LEFT VENTRICLE The left ventricular systolic function is mildly reduced with an estimated ejection fraction of 45%. Normal left ventricular size. RIGHT VENTRICLE Normal right ventricular size and systolic function. LEFT ATRIUM The left atrial size is normal. RIGHT ATRIUM The right atrial size is normal. ATRIAL SEPTUM Normal atrial septal thickness without atrial level shunting by limited color doppler interrogation. AORTA The aortic root and proximal ascending aorta are normal in size on limited imaging. MITRAL VALVE [id number] mitral valve regurgitation. Structurally normal mitral valve. AORTIC VALVE Trileaflet aortic valve. Aortic valve sclerosis is present. No aortic valve regurgitation. Aortic valve area is 1.4 cm. Aortic valve mean gradient is 8 mmHg. TRICUSPID VALVE Structurally normal tricuspid valve. There is mild tricuspid valve regurgitation. PULMONARY VALVE The pulmonary valve is not well visualized. VESSELS The inferior vena cava is normal in size. PERICARDIUM No pericardial effusion. Raciel Mcmahon MD, FACC (Electronically Signed) Final Date:24 February 2017 14:55
--- NOTE | 2017-02-24 16:58 | PD.WCN.NOT ---
Wound Consult Description: Received consult from Doctor Abel for chronic bilateral venous stasis dermatitis Communicated with: ANNIE Combs [facility] [place], and Doctor Aubree Recommendation: 1.Please apply shaving cream to bilateral legs and leave in place for 10 minutes and rinse off daily and apply lac hydin lotion BID leave bilateral legs open to air. 2.Keep bilateral legs elevated to reduce edema. 3. Apply Optifoam basic non adhesive dressing to open wounds on R leg and secure with rolled gauze and tape. Change dressing as needed. Additional Information: Patient seen on 5th floor [facility] [place] around 1645 for chronic bilateral venous stasis dermatitis. Patient presents with thick hyperkeratotic tissue and crusts to bilateral lower legs. Wound is noted to R lower lateral leg with 100% pink tissue and minimal serous drainage that is without odor. Wound measures ~5cm x ~ 2cm x ~0.1cm. Applied shaving cream to bilateral lower legs and left in place for 10 minutes before removing with warm water and wash cloths to soften hyperkeratotic tissue and crusts. Recommendations written above. ANNIE Combs to apply optifoam basic dressing, secured with rolled gauze and tape, when supplies obtained. Randi [facility] Feb 24, 2017 16:58
--- NOTE | 2017-02-24 18:39 | EKG ---
Date Performed: 02/24/2017 Time Performed: 09:16:40 PTAGE: 72 years EKG: SINUS TACHYCARDIA RIGHT BUNDLE BRANCH BLOCK INFERIOR MYOCARDIAL INFARCTION , OF INDETERMINA TE AGE MODERATE T-WAVE ABNORMALITY, CONSIDER LATERAL ISCHEMIA When compared to previous tracing, cristopher ent is no longer in atrial Fibrillation. Clinical corrolation is strongly suggested regarding T wave Abnormalities. ABNORMAL ECG PREVIOUS TRACING : 02/23/2017 22.55 DOCTOR: Juan Pablo Newby Interpretating Date/Time 02/24/2017 18:37:51
[2017-02-24] MEDS: ATORVASTATIN 40 MG TAB PO SCH (20:50)
[2017-02-24] MEDS ORDERED: VANCOMYCIN INJ 2,000 MG in SODIUM CHLORID 0.9% 500 ML INJ 500 ML IV SCH (21:00)
[2017-02-24 23:57] LABS: BACTERIA, URINE RARE /hpf; BLOOD, URINE SMALL (NEG); COMMENT (UR) CATH-CULTURE IND; CULTURE IF INDICATED CATH CULTURE IND; GLUCOSE,URINE NEG (NEG); GRANULAR CAST, URINE 4 /lpf; HYALINE CAST, URINE 16 /lpf (RARE); KETONE, URINE NEG (NEG); MUCUS URINE FEW /lpf (OCC); NITRITE,URINE NEG (NEG); PH, URINE 5.5 (5.0-8.5); SQUAMOUS EPITHELIAL CELL URINE 1 /hpf (0-5); URINE COLOR YELLOW (YELLW/STRAW)
[2017-02-25] VITALS (21 sets, daily range): BP systolic 104–127; BP diastolic 60–76; PULSE 92–105; RESP 29–63; TEMP 97.4–98.5; O2SAT 93–98
[2017-02-25] MEDS: RESP: ALBUTEROL 2.5 MG/IPRATROPIUM 0.5 MG NEB (SCH) INH ×6 (00:01→20:53)
[2017-02-25] MEDS: CHLORHEXIDINE GLUCONATE 2 % 1 PACK (2 CLOTHS) TOP SCH (04:00)
[2017-02-25] MEDS: AZTREONAM INJ 2,000 MG in SODIUM CHLORIDE 0.9% INJ 100 ML IV SCH ×3 (06:00→22:00)
[2017-02-25] MEDS: HEPARIN-D5W 25,000 U/250 ML 250 ML IV PRN (06:11)
[2017-02-25] MEDS: SODIUM CHLOR 0.9% 1000 ML INJ 1,000 ML IV SCH ×2 (06:20→11:45)
[2017-02-25 07:07] LABS: AUTOMATED NEUTROPHIL # 22.7 TH/MM3 (1.8-7.7); BASOPHIL # 0.1 TH/MM3 (0-0.2); BASOPHIL % 0.3 % (0.0-2.0); HEMATOCRIT 35.8 % (39.0-51.0); HEMO FLAGS DIFF FINAL; LYMPH % 2.5 % (9.0-44.0); LYMPHOCYTE # 0.6 TH/MM3 (1.0-4.8); MEAN CELL VOLUME 87.9 FL (80.0-100.0); MEAN CORPUSCULAR HEMOGLOBIN 28.2 PG (27.0-34.0); MONO % 2.4 % (0.0-8.0); NEUT % 94.8 % (16.0-70.0); PLATELET COUNT 148 TH/MM3 (150-450); RED BLOOD COUNT 4.08 MIL/MM3 (4.50-5.90); RED CELL DISTRIBUTION WIDTH 14.4 % (11.6-17.2)
[2017-02-25 07:45] LABS: ALKALINE PHOSPHATASE 87 U/L (45-117); ALT (GPT) 34 U/L (12-78); ANION GAP 9 MEQ/L (5-15); AST (GOT) 51 U/L (15-37); BICARBONATE 22.9 MEQ/L (21.0-32.0); BLOOD UREA NITROGEN 63 MG/DL (7-18); CHLORIDE 110 MEQ/L (98-107); GLOMERULAR FILTRATION RATE 39 ML/MIN (>89); MAGNESIUM 2.4 MG/DL (1.5-2.5); POTASSIUM 4.9 MEQ/L (3.5-5.1); SODIUM (NA) 142 MEQ/L (136-145); TOTAL BILIRUBIN ADULT 0.4 MG/DL (0.2-1.0)
--- NOTE | 2017-02-25 08:31 | HHI.CCPN ---
Subjective Remarks/Hospital Course 72-year-old pleasant gentleman with past medical history of of CVA, HTN coronary artery disease status post stent placement to his mid LAD by Dr. Washington in May 2015 presents with complaints of shortness of breath that progressively worsening over last few weeks. Patient says he also slipped and fell on right hip today and could not get up for 12 hours. Denies any head trauma. He has a chronic venostatic lower extremity wounds for about last 4 months. Denies any chest pain, nausea or vomiting, abdominal pain, focal weakness or numbness. 02/24 Patient is lying in bed in NAD. Afebrile.On Heparin drip. 02/25 Patient is lying in bed in NAD. On Heparin drip. BC 02/23: GNR Objective Vital Signs Date Time Temp Pulse Resp B/P (MAP) Pulse Ox O2 Delivery O2 Flow Rate FiO2 02/25/17 06:00 94 02/25/17 04:00 98.5 38 110/69 (83) 96 02/24/17 20:35 Nasal Cannula 5.00 02/23/17 23:27 40 Intake and Output 02/25/17 02/25/17 02/26/17 08:00 16:00 00:00 Intake Total 2345 ml Output Total 400 ml Balance 1945 ml Result Diagram: 02/25/17 0507 02/25/17 0507 Other Results Laboratory Tests Test 02/24/17 11:50 02/24/17 12:23 02/24/17 16:32 02/24/17 21:50 White Blood Count 27.7 TH/MM3 Red Blood Count 4.16 MIL/MM3 Hemoglobin 12.0 GM/DL Hematocrit 36.3 % Mean Corpuscular Volume 87.3 FL Mean Corpuscular Hemoglobin 28.8 PG Mean Corpuscular Hemoglobin Concent 33.0 % Red Cell Distribution Width 14.2 % Platelet Count 149 TH/MM3 Mean Platelet Volume 9.6 FL Neutrophils (%) (Auto) 95.0 % Lymphocytes (%) (Auto) 1.9 % Monocytes (%) (Auto) 2.8 % Eosinophils (%) (Auto) 0.2 % Basophils (%) (Auto) 0.1 % Neutrophils # (Auto) 26.3 TH/MM3 Lymphocytes # (Auto) 0.5 TH/MM3 Monocytes # (Auto) 0.8 TH/MM3 Eosinophils # (Auto) 0.1 TH/MM3 Basophils # (Auto) 0.0 TH/MM3 CBC Comment DIFF FINAL Differential Comment Activated Partial Thromboplast Time 44.8 SEC Blood Urea Nitrogen 49 MG/DL Creatinine 1.81 MG/DL Random Glucose 145 MG/DL Total Protein 7.6 GM/DL Albumin 2.2 GM/DL Calcium Level 8.7 MG/DL Phosphorus Level 4.3 MG/DL Magnesium Level 2.1 MG/DL Alkaline Phosphatase 103 U/L Aspartate Amino Transf (AST/SGOT) 85 U/L Alanine Aminotransferase (ALT/SGPT) 38 U/L Total Bilirubin 0.5 MG/DL Sodium Level 140 MEQ/L Potassium Level 5.0 MEQ/L Chloride Level 108 MEQ/L Carbon Dioxide Level 24.7 MEQ/L Anion Gap 7 MEQ/L Estimat Glomerular Filtration Rate 37 ML/MIN Troponin I 9.62 NG/ML 8.47 NG/ML 5.36 NG/ML Blood Gas Puncture Site LT BRACHIAL Blood Gas Patient Temperature 98.6 Blood Gas HCO3 24 mmol/L Blood Gas Base Excess -1.7 mmol/L Blood Gas Oxygen Saturation 95 % Arterial Blood pH 7.31 Arterial Blood Partial Pressure CO2 49 mmHg Arterial Blood Partial Pressure O2 106 mmHg Arterial Blood Oxygen Content 17.8 Vol % Arterial Blood Carboxyhemoglobin 0.6 % Arterial Blood Methemoglobin 1.1 % Blood Gas Hemoglobin 13.2 G/DL Oxygen Delivery Device NASAL CANNULA Blood Gas Liter Flow 5 L/M Test 02/24/17 23:30 02/25/17 05:07 Urine Color YELLOW Urine Turbidity HAZY Urine pH 5.5 Urine Specific [place] 1.022 Urine Protein 30 mg/dL Urine Glucose (UA) NEG mg/dL Urine Ketones NEG mg/dL Urine Occult Blood SMALL Urine Nitrite NEG Urine Bilirubin NEG Urine Urobilinogen LESS THAN 2.0 MG/DL Urine Leukocyte Esterase LARGE Urine RBC 5 /hpf Urine WBC 166 /hpf Urine Squamous Epithelial Cells 1 /hpf Urine Bacteria RARE /hpf Urine Hyaline Casts 16 /lpf Urine Granular Casts 4 /lpf Urine Mucus FEW /lpf Microscopic Urinalysis Comment CATH-CULTURE IND White Blood Count 24.0 TH/MM3 Red Blood Count 4.08 MIL/MM3 Hemoglobin 11.5 GM/DL Hematocrit 35.8 % Mean Corpuscular Volume 87.9 FL Mean Corpuscular Hemoglobin 28.2 PG Mean Corpuscular Hemoglobin Concent 32.0 % Red Cell Distribution Width 14.4 % Platelet Count 148 TH/MM3 Mean Platelet Volume 9.8 FL Neutrophils (%) (Auto) 94.8 % Lymphocytes (%) (Auto) 2.5 % Monocytes (%) (Auto) 2.4 % Eosinophils (%) (Auto) 0.0 % Basophils (%) (Auto) 0.3 % Neutrophils # (Auto) 22.7 TH/MM3 Lymphocytes # (Auto) 0.6 TH/MM3 Monocytes # (Auto) 0.6 TH/MM3 Eosinophils # (Auto) 0.0 TH/MM3 Basophils # (Auto) 0.1 TH/MM3 CBC Comment DIFF FINAL Differential Comment Blood Urea Nitrogen 63 MG/DL Creatinine 1.73 MG/DL Random Glucose 138 MG/DL Total Protein 7.4 GM/DL Albumin 1.9 GM/DL Calcium Level 8.8 MG/DL Phosphorus Level 4.5 MG/DL Magnesium Level 2.4 MG/DL Alkaline Phosphatase 87 U/L Aspartate Amino Transf (AST/SGOT) 51 U/L Alanine Aminotransferase (ALT/SGPT) 34 U/L Total Bilirubin 0.4 MG/DL Sodium Level 142 MEQ/L Potassium Level 4.9 MEQ/L Chloride Level 110 MEQ/L Carbon Dioxide Level 22.9 MEQ/L Anion Gap 9 MEQ/L Estimat Glomerular Filtration Rate 39 ML/MIN Imaging Last Impressions Chest X-Ray 02/24/17 0000 Signed Impressions: Service Date/Time: Friday, February 24, 2017 03:25 - CONCLUSION: No focal infiltrates seen. Cruz Connelly MD Hip and Pelvis X-Ray 02/23/17 0000 Signed Impressions: Service Date/Time: Thursday, February 23, 2017 18:25 - CONCLUSION: 1. Suboptimal exam due to patient size. No displaced fracture or dislocation identified. Helder Hernandez MD Objective Remarks GENERAL: 72 years old morbidly obese male in moderate respiratory distress on facemask BiPAP SKIN: Focused skin assessment warm/dry. HEAD: Atraumatic. Normocephalic. EYES: Pupils equal and round. No scleral icterus. No injection or drainage. ENT: No nasal bleeding or discharge. Mucous membranes pink and moist. NECK: Trachea midline. No JVD. CARDIOVASCULAR: Tachycardic in the 120s. No murmur appreciated. RESPIRATORY: + accessory muscle use.Decreased breath sounds. GASTROINTESTINAL: Abdomen soft, non-tender, nondistended. . MUSCULOSKELETAL:Bilateral lower extremity edema, nixon scaling rash that has been there for months. Right leg has some erythema surrounding the rash. NEUROLOGICAL: Awake and alert. No obvious cranial nerve deficits. Motor grossly within normal limits. Normal speech. A/P Assessment and Plan Non-STEMI Resp Insuff Leukocytosis Gram negative bacteremia UTI GUALBERTO Rhabdo Mild lactic acidemia Hypertension Chronic venous stasis Plan Neuro: Awake and alert Pulm: Continue with oxygen keep sat >92% Bronchodilators, NIPPV PRN for resp distress CV: Monitor HR and BP keep MAP>65mmHg Continue ASA, Lipitor, Coreg, Plavix. On Heparin drip- monitor PTT. Echo showed EF 45% Cards is following- Dr. Thompson : Monitor renal function, I/O's, avoid nephrotoxins On NS@84ml/hr. Renal function is improving with Cr: 1.73 from 1.81 Check US abdomen GI: On PO diet ID: Continue with abx ( Aztreonam, Levaquin, Vanco) monitor for signs of infections ( Fever, WBC) WBC is trending down ID service is consulted. Check CT abd/pelvis BC from 02/23: GNR, follow up on urine cx BC 02/24: NGTD Wound service is following for Chronic venous stasis Heme: Monitor CBC, coags- on Heparin drip Endo: SSI for glycemic control GI prophylaxis- on Pepcid DVT prophylaxis- On Heparin drip Level 3 Zion Driver MD Feb 25, 2017 08:30
[2017-02-25] MEDS ORDERED: DIATRIZOATE MEGLUM/DIATRIZOATE SOD 9 ML CUP PO ONE (08:38)
[2017-02-25] MEDS: CARVEDILOL 3.125 MG TAB PO SCH ×2 (08:53→20:55)
[2017-02-25] MEDS: DOCUSATE SODIUM 50 MG/SENNA 8.6 MG TAB PO SCH ×2 (08:53→20:56)
[2017-02-25] MEDS: CLOPIDOGREL 75 MG TAB PO SCH (08:53)
[2017-02-25] MEDS: ASPIRIN EC 325 MG TABEC PO SCH (08:53)
[2017-02-25] MEDS: SODIUM CHLORIDE 0.9% FLUSH 10 ML FLUSH IV FLUSH SCH ×2 (08:54→20:55)
[2017-02-25] MEDS: FAMOTIDINE 20 MG/2 ML VIAL IV PUSH SCH (09:10)
[2017-02-25 09:48] LABS: APTT (PATIENT) 35.5 SEC (24.3-30.1)
[2017-02-25] MEDS ORDERED: INFLUENZA VIRUS VACCINE (QUADRIVALENT) 0.5 ML SYR IM ONE (10:00)
--- NOTE | 2017-02-25 12:46 | RADRPT ---
EXAM DATE/TIME: 02/25/2017 12:11 [place] COMPARISON: No previous studies available for comparison. INDICATIONS : Leukocytosis ORAL CONTRAST: Prescribed oral contrast ingested. RADIATION DOSE: 23.75 CTDIvol (mGy) MEDICAL HISTORY : Hypertension. Cerebrovascular disease. Cardiovascular disease SURGICAL HISTORY : Coronary artery stent. Cholecystectomy. ENCOUNTER: Initial ACUITY: 2 days PAIN SCALE: 0/10 LOCATION: abdomen TECHNIQUE: Volumetric scanning of the abdomen and pelvis was performed. Using automated exposure control and ad justment of the mA and/or kV according to patient size, radiation dose was kept as low as reasonably achievable to obtain optimal diagnostic quality images. DICOM format image data is available electro nically for review and comparison. FINDINGS: Tiny bilateral pleural effusions are noted. Posterior bibasilar patchiness is noted consistent with a telectasis and/or mild infiltrates. Evaluation of the solid organs of the abdomen is limited by the l ack of intravenous contrast. Uncomplicated colonic diverticulosis is noted. No acute diverticulitis i s noted. The prostate gland is significantly enlarged. No acute obstructive uropathy is noted. Small midline ventral abdominal wall hernia containing only fat is noted. A bilobed infrarenal abdominal ao rtic aneurysm measures 3.4 cm in greatest dimension superiorly and 3.2 cm in greatest dimension infer iorly. The patient is status post cholecystectomy. Degenerative changes and scoliosis of the thoraco- lumbar spine are noted. CONCLUSION: 1. Posterior bibasilar patchiness consistent with atelectasis and/or mild infiltrates. 2. Tiny bilateral pleural effusions. 3. Uncomplicated colonic diverticulosis. 4. Markedly enlarged prostate gland. 5. Small midline ventral abdominal wall hernia containing only fat. 6. Bilobed infrarenal abdominal aortic aneurysm which measures 3.4 cm in greatest dimension. 7. Degenerative changes and scoliosis of the thoraco-lumbar spine. Vinnie Montemayor MD on February 25, 2017 at 12:36 Board Certified Radiologist. This report was verified electronically.
--- NOTE | 2017-02-25 14:01 | PD.CARD.PN ---
Subjective Subjective Remarks Denies dyspnea, CP, dizziness, palpitations, PND. Slept well. Objective Medications Item Value Date Time Atorvastatin 40 mg 02/24/172099 Calcium HS/PO 02/24/172049 (Lipitor) Clopidogrel 75 mg 02/24/17 0900 Bisulfate DAILY/PO 02/25/17 0853 (Plavix) Aspirin 325 mg 02/24/17 0900 (Ecotrin Ec) DAILY/PO 02/25/17 0853 Atorvastatin 10 mg 02/23/172099 Calcium HS/PO (Lipitor) Carvedilol 3.125 mg 02/23/172099 (Coreg) BID/PO 02/25/17 08 Heparin Sodium/ 250 ml @ 10 mls/hr 02/23/171999 Dextrose TITRATE PRN/IV 02/25/17 06 Current Medications Medications (Trade) Dose Ordered Sig/Alexandro Route Start Time Stop Time Status Last Admin (Lipitor) 10 mg HS PO 02/23/17 21:00 02/24/17 01:41 (Coreg) 3.125 mg BID PO 02/23/17 21:00 02/25/17 08:53 (Plavix) 75 mg DAILY PO 02/24/17 09:00 02/25/17 08:53 (Nitrostat Sl) 0.4 mg Q5M PRN SL 02/23/17 19:45 (Percocet 5-325 Mg) 1 tab Q6H PRN PO 02/23/17 19:45 Future Hold Sodium Chloride 1,000 ml @ 84 mls/hr [id number] IV 02/23/17 19:42 02/25/17 06:20 (NS Flush) 2 ml UNSCH PRN IV FLUSH 02/23/17 19:45 (NS Flush) 2 ml BID IV FLUSH 02/23/17 21:00 02/25/17 08:54 (Tylenol) 650 mg Q6H PRN PO 02/23/17 19:45 (Morphine Inj) 2 mg Q2H PRN IV PUSH 02/23/17 19:45 (Pepcid Inj) 20 mg DAILY IV PUSH 02/23/17 21:00 02/25/17 09:10 (Ativan Inj) 1 mg Q1H PRN IV PUSH 02/23/17 19:45 (Zofran Inj) 4 mg Q6H PRN IV PUSH 02/23/17 19:45 (Ambien) 5 mg HS PRN PO 02/23/17 19:45 (Duoneb Neb) 1 ampule Q4HR NEB INH 02/23/17 20:00 02/25/17 12:43 (Duoneb Neb) 1 ampule Q2HR NEB PRN INH 02/23/17 19:45 Miscellaneous Information 1 Q361D XX 02/23/17 19:45 (Chlorhexidine 2% Cloth) 3 pack Taper DAILY@04 TOP 02/24/17 04:00 02/20/18 03:59 02/25/17 04:00 (Chlorhexidine 2% Cloth) 3 pack UNSCH PRN TOP 02/23/17 19:45 (Roxanne-Colace) 1 tab BID PO 02/23/17 21:00 02/25/17 08:53 (Milk Of Magnesia Liq) 30 ml Q12H PRN PO 02/23/17 19:45 (Senokot) 17.2 mg Q12H PRN PO 02/23/17 19:45 (Dulcolax Supp) 10 mg DAILY PRN RECTAL 02/23/17 19:45 (Lactulose Liq) 30 ml DAILY PRN PO 02/23/17 19:45 Levofloxacin/ Dextrose 150 ml @ 100 mls/hr Q48H IV 02/23/17 20:00 02/23/17 21:23 Pharmacy Profile Note 0 ml @ 0 mls/hr UNSCH OTHER 02/23/17 20:00 (Ecotrin Ec) 325 mg DAILY PO 02/24/17 09:00 02/25/17 08:53 (Heparin Inj) 5,000 units UNSCH PRN IV PUSH 02/24/17 02:00 (Heparin Inj) 2,500 units UNSCH PRN IV PUSH 02/24/17 02:00 Heparin Sodium/ Dextrose 250 ml @ 10 mls/hr TITRATE PRN IV 02/23/17 20:00 02/25/17 06:11 Vancomycin HCl 2000 mg/Sodium Chloride 520 ml @ 250 mls/hr Q24H IV 02/24/17 21:00 02/24/17 20:49 Miscellaneous Information SPECIFIC LAB TO BE SANDRA... ONCE ONCE .XX 02/25/17 20:45 02/25/17 20:46 Aztreonam 2000 mg/ Sodium Chloride 100 ml @ 200 mls/hr Q8H IV 02/24/17 06:00 02/25/17 06:00 (Lipitor) 40 mg HS PO 02/24/17 21:00 02/24/17 20:50 Vital Signs / I&O Vital Signs Date Time Temp Pulse Resp B/P (MAP) Pulse Ox O2 Delivery O2 Flow Rate FiO2 02/25/17 09:02 96 Nasal Cannula 3.00 02/25/17 08:00 97.9 96 63 127/76 (93) 96 02/25/17 06:00 94 02/25/17 04:00 98.5 93 38 110/69 (83) 96 02/25/17 04:00 93 02/25/17 02:00 93 02/25/17 00:00 92 02/25/17 00:00 98.2 92 42 108/67 (81) 97 02/24/17 22:00 92 02/24/17 20:35 97 Nasal Cannula 5.00 02/24/17 20:00 98.2 96 24 121/74 (90) 97 02/24/17 20:00 96 02/24/17 18:00 96 02/24/17 17:00 99 02/24/17 16:00 96 02/24/17 16:00 98.5 96 22 105/64 (78) 97 02/24/17 15:00 97 02/24/17 14:00 97 I/O 02/24/17 02/24/17 02/24/17 02/25/17 02/25/17 02/25/17 07:00 15:00 23:00 07:00 15:00 23:00 Intake Total 1073 ml 1000 ml 100 ml 2965 ml Output Total 350 ml 200 ml 400 ml Balance 723 ml 1000 ml -100 ml 2565 ml Intake Oral 50 ml 120 ml IV Total 1023 ml 1000 ml 100 ml 2845 ml Output Urine Total 350 ml 200 ml 400 ml # Voids 3 # Bowel Movements 2 0 Physical Exam GENERAL: Well developed, well nourished. No acute distress. HEENT: Jugular venous pressure very difficult to assess. CHEST: Lungs clear to auscultation anteriorly. CARDIAC: Regular rate and rhythm without S3, S4, or murmur. ABDOMEN: Soft, nontender, no hepatosplenomegaly. Bowel sounds present. EXTREMITIES: No clubbing, cyanosis, or edema. Chronic venous stasis changes. Laboratory Laboratory Tests Test 02/24/17 16:32 02/24/17 21:50 02/24/17 23:30 02/25/17 05:07 Troponin I 8.47 NG/ML 5.36 NG/ML Urine Color YELLOW Urine Turbidity HAZY Urine pH 5.5 Urine Specific [place] 1.022 Urine Protein 30 mg/dL Urine Glucose (UA) NEG mg/dL Urine Ketones NEG mg/dL Urine Occult Blood SMALL Urine Nitrite NEG Urine Bilirubin NEG Urine Urobilinogen LESS THAN 2.0 MG/DL Urine Leukocyte Esterase LARGE Urine RBC 5 /hpf Urine WBC 166 /hpf Urine Squamous Epithelial Cells 1 /hpf Urine Bacteria RARE /hpf Urine Hyaline Casts 16 /lpf Urine Granular Casts 4 /lpf Urine Mucus FEW /lpf Microscopic Urinalysis Comment CATH-CULTURE IND White Blood Count 24.0 TH/MM3 Red Blood Count 4.08 MIL/MM3 Hemoglobin 11.5 GM/DL Hematocrit 35.8 % Mean Corpuscular Volume 87.9 FL Mean Corpuscular Hemoglobin 28.2 PG Mean Corpuscular Hemoglobin Concent 32.0 % Red Cell Distribution Width 14.4 % Platelet Count 148 TH/MM3 Mean Platelet Volume 9.8 FL Neutrophils (%) (Auto) 94.8 % Lymphocytes (%) (Auto) 2.5 % Monocytes (%) (Auto) 2.4 % Eosinophils (%) (Auto) 0.0 % Basophils (%) (Auto) 0.3 % Neutrophils # (Auto) 22.7 TH/MM3 Lymphocytes # (Auto) 0.6 TH/MM3 Monocytes # (Auto) 0.6 TH/MM3 Eosinophils # (Auto) 0.0 TH/MM3 Basophils # (Auto) 0.1 TH/MM3 CBC Comment DIFF FINAL Differential Comment Blood Urea Nitrogen 63 MG/DL Creatinine 1.73 MG/DL Random Glucose 138 MG/DL Total Protein 7.4 GM/DL Albumin 1.9 GM/DL Calcium Level 8.8 MG/DL Phosphorus Level 4.5 MG/DL Magnesium Level 2.4 MG/DL Alkaline Phosphatase 87 U/L Aspartate Amino Transf (AST/SGOT) 51 U/L Alanine Aminotransferase (ALT/SGPT) 34 U/L Total Bilirubin 0.4 MG/DL Sodium Level 142 MEQ/L Potassium Level 4.9 MEQ/L Chloride Level 110 MEQ/L Carbon Dioxide Level 22.9 MEQ/L Anion Gap 9 MEQ/L Estimat Glomerular Filtration Rate 39 ML/MIN Test 02/25/17 08:55 Activated Partial Thromboplast Time 35.5 SEC Imaging Last 24 hours Impressions Abdomen/Pelvis CT 02/25/17 0000 Signed Impressions: Service Date/Time: Saturday, February 25, 2017 12:11 - CONCLUSION: 1. Posterior bibasilar patchiness consistent with atelectasis and/or mild infiltrates. 2. Tiny bilateral pleural effusions. 3. Uncomplicated colonic diverticulosis. 4. Markedly enlarged prostate gland. 5. Small midline ventral abdominal wall hernia containing only fat. 6. Bilobed infrarenal abdominal aortic aneurysm which measures 3.4 cm in greatest dimension. 7. Degenerative changes and scoliosis of the thoraco-lumbar spine. Vinnie Montemayor MD Assessment and Plan Problem List: (1) Non-ST elevation [place] (NSTEMI) ICD Codes: I21.4 - Non-ST elevation (NSTEMI) myocardial infarction Status: Acute Plan: Stable overnight. No definite angina. Dyspnea resolved. Troponin levels trending downward. EF unchanged from last year, ~45%. REC cath at some point during this admission; would wait as long as patient stable until bacteremia treated, and renal function back close to baseline continue beta kelsie, ASA, heparin, clopidogrel; no STEVAN-I for now with his renal insufficiency (2) Hypertension ICD Codes: I10 - Essential (primary) hypertension Status: Chronic Plan: Stable. Normotensive. (3) Ischemic cardiomyopathy ICD Codes: I25.5 - Ischemic cardiomyopathy Status: Chronic Plan: No major change in EF, 45%, by echo, compared to last year by cath. No definite CHF except tiny bilateral pleural effusions noted on abdominal CT. Rec continue current medical regimen. Code Status full code Discussed Condition With patient Problem Qualifiers (1) Hypertension: Qualified Codes: I10 - Essential (primary) hypertension Diallo Thompson MD Feb 25, 2017 14:01
[2017-02-25 19:47] LABS: APTT (PATIENT) 34.5 SEC (24.3-30.1)
[2017-02-25] MEDS ORDERED: PHARMACY ORDERED LAB ONE (20:45)
[2017-02-25] MEDS: LEVOFLOXACIN 750 MG PREMIX INJ 150 ML IV SCH (20:55)
[2017-02-25] MEDS: ATORVASTATIN 10 MG TAB PO SCH (20:55)
[2017-02-25] MEDS: ATORVASTATIN 40 MG TAB PO SCH (20:55)
--- NOTE | 2017-02-25 22:20 | PD.ID.CON ---
History of Present Illness Service ID Consult Requested By Dr Raygoza Reason for Consult gram negative bacteremia Primary Care Physician No Primary Care Physician Diagnoses: History of Present Illness 72 yo male who presented on 02/23 with complaints of shortness of breath that progressively worsening over last few weeks. Sp fall on right hip today and could not get up for 12 hours. Denies any head trauma. Denies any chest pain, nausea or vomiting, abdominal pain, focal weakness or numbness. On presentation he had low grade fever in 99 range and leukocytosis of 27 K , which peaked next day to 37 K; His troponine was 13 on arrival, he was diagnosed with NSTEMI, cardiology ff 2 D echo neg for vegg's His blood clx are growing gram negative rods in 10/21 bottles ; repeat blood clx are negative Urine clx negative, but was done after 1 day of abx UA was quite abn with 166 WBC Pt is retaining urine, UOP 350-750 /day, creatinine up to 1.8\He has condom cath and 440 cc of residuals per bladder scan Review of Systems ROS Limitations: Poor Historian Past Family Social History Allergies: Coded Allergies: azithromycin (Unverified Allergy, Severe, Swelling, 10/28/16) erythromycin base (Unverified Allergy, Severe, Swelling, 10/28/16) penicillin G (Unverified Allergy, Severe, Swelling, 10/28/16) Past Medical History CVA, Bilateral lower extremity edema Hypertension Coronary artery disease Status post stent placement in mid LAD in May 2012/Dr. Washington Past Surgical History Cholecystectomy Percutaneous angioplasty to LAD in May 2012 Active Ordered Medications Medications where reviewed in EMR Antibiotics Include: vancomycin azcrtam Family History reviewed non contributory to curretn condition Social History + Tobacco. 1/2 ppd Occ ETOH. No Illicit Drugs. Physical Exam Vital Signs Vital Signs Date Time Temp Pulse Resp B/P (MAP) Pulse Ox O2 Delivery O2 Flow Rate FiO2 02/25/17 20:53 98 Nasal Cannula 5.00 02/25/17 18:21 93 Nasal Cannula 6.00 02/25/17 18:00 105 02/25/17 17:00 99 02/25/17 16:00 98.1 97 30 104/73 (83) 96 02/25/17 16:00 97 02/25/17 15:00 96 02/25/17 14:00 95 02/25/17 13:00 95 02/25/17 12:00 98.3 93 29 106/60 (75) 96 02/25/17 12:00 93 02/25/17 11:00 92 02/25/17 10:00 92 02/25/17 09:02 96 Nasal Cannula 3.00 02/25/17 09:00 97 02/25/17 08:00 97.9 96 63 127/76 (93) 96 02/25/17 08:00 96 02/25/17 07:00 96 02/25/17 06:00 94 02/25/17 04:00 98.5 93 38 110/69 (83) 96 02/25/17 04:00 93 02/25/17 02:00 93 02/25/17 00:00 92 02/25/17 00:00 98.2 92 42 108/67 (81) 97 Physical Exam CONSTITUTIONAL/GENERAL: This is an obese elderly patient, in no apparent distress. TUBES/LINES/DRAINS: SKIN: No jaundice, rashes, or lesions. Skin temperature appropriate. Not diaphoretic. HEAD: Atraumatic. Normocephalic. EYES: Pupils equal and round and reactive. Extraocular motions intact. No scleral icterus. No injection or drainage. Fundi not examined. ENT: Hearing grossly normal. Nose without bleeding or purulent drainage. Throat without visible erythema, exudates, masses, or lesions. NECK: Trachea midline. Supple, nontender. CARDIOVASCULAR: Regular rate and rhythm without murmurs, gallops, or rubs. No JVD. Peripheral pulses symmetric. RESPIRATORY/CHEST: Symmetric, unlabored respirations. Clear to auscultation. Breath sounds equal bilaterally. No wheezes, rales, or rhonchi. GASTROINTESTINAL: Abdomen soft, non-tender, nondistended. No hepato-splenomegaly , or palpable masses. No guarding. Bowel sounds present. GENITOURINARY: Without palpable bladder distension. condom catheter in place. with small amount of clear yellow urine MUSCULOSKELETAL: Extremities without clubbing, cyanosis, + 2 edema, chronic skin changes, pachydermosis . No joint tenderness or effusion noted. No calf tenderness. No mottling or clubbing. LYMPHATICS: No palpable cervical or supraclavicular adenopathy. NEUROLOGICAL: Arousable. Motor and sensory grossly within normal limits. Follows commands. Clear speech . Moves all extremities. PSYCHIATRIC: No obvious anxiety/depression. no apparent hallucinations or other psychotic thought process. Laboratory Laboratory Tests Test 02/24/17 23:30 02/25/17 05:07 02/25/17 08:55 02/25/17 16:00 Urine Color YELLOW Urine Turbidity HAZY Urine pH 5.5 Urine Specific Bolton 1.022 Urine Protein 30 Urine Glucose (UA) NEG Urine Ketones NEG Urine Occult Blood SMALL Urine Nitrite NEG Urine Bilirubin NEG Urine Urobilinogen LESS THAN 2.0 Urine Leukocyte Esterase LARGE Urine RBC 5 Urine WBC 166 Urine Squamous Epithelial Cells 1 Urine Bacteria RARE Urine Hyaline Casts 16 Urine Granular Casts 4 Urine Mucus FEW Microscopic Urinalysis Comment CATH-CULTURE IND White Blood Count 24.0 Red Blood Count 4.08 Hemoglobin 11.5 Hematocrit 35.8 Mean Corpuscular Volume 87.9 Mean Corpuscular Hemoglobin 28.2 Mean Corpuscular Hemoglobin Concent 32.0 Red Cell Distribution Width 14.4 Platelet Count 148 Mean Platelet Volume 9.8 Neutrophils (%) (Auto) 94.8 Lymphocytes (%) (Auto) 2.5 Monocytes (%) (Auto) 2.4 Eosinophils (%) (Auto) 0.0 Basophils (%) (Auto) 0.3 Neutrophils # (Auto) 22.7 Lymphocytes # (Auto) 0.6 Monocytes # (Auto) 0.6 Eosinophils # (Auto) 0.0 Basophils # (Auto) 0.1 CBC Comment DIFF FINAL Differential Comment Blood Urea Nitrogen 63 Creatinine 1.73 Random Glucose 138 Total Protein 7.4 Albumin 1.9 Calcium Level 8.8 Phosphorus Level 4.5 Magnesium Level 2.4 Alkaline Phosphatase 87 Aspartate Amino Transf (AST/SGOT) 51 Alanine Aminotransferase (ALT/SGPT) 34 Total Bilirubin 0.4 Sodium Level 142 Potassium Level 4.9 Chloride Level 110 Carbon Dioxide Level 22.9 Anion Gap 9 Estimat Glomerular Filtration Rate 39 Activated Partial Thromboplast Time 35.5 34.5 Date/Time Source Procedure Growth Status 02/24/17 16:31 Blood Peripheral Aerobic Blood Culture - Preliminary NO GROWTH IN 1 DAY Resulted 02/24/17 16:31 Blood Peripheral Anaerobic Blood Culture - Preliminary NO GROWTH IN 1 DAY Resulted 02/23/17 04:40 Stool Stool Stool Occult Blood (SAHARA) - Final HEMOCCULT NEGATIVE Complete 02/23/17 04:42 Sputum Expectorated Sputum Gram Stain - Final Resulted 02/23/17 04:42 Sputum Expectorated Sputum Sputum Culture - Preliminary HEAVY GROWTH NORMAL RESPIRATORY DEANNA... Resulted 02/24/17 23:30 Urine Catheterized Urine Urine Culture - Preliminary NO GROWTH IN 24 HOURS. Resulted Result Diagram: 02/25/17 0507 02/25/17 0507 Imaging Last Impressions Abdomen/Pelvis CT 02/25/17 0000 Signed Impressions: Service Date/Time: Saturday, February 25, 2017 12:11 - CONCLUSION: 1. Posterior bibasilar patchiness consistent with atelectasis and/or mild infiltrates. 2. Tiny bilateral pleural effusions. 3. Uncomplicated colonic diverticulosis. 4. Markedly enlarged prostate gland. 5. Small midline ventral abdominal wall hernia containing only fat. 6. Bilobed infrarenal abdominal aortic aneurysm which measures 3.4 cm in greatest dimension. 7. Degenerative changes and scoliosis of the thoraco-lumbar spine. Vinnie Montemayor MD Chest X-Ray 02/24/17 0000 Signed Impressions: Service Date/Time: Friday, February 24, 2017 03:25 - CONCLUSION: No focal infiltrates seen. Cruz Connelly MD Hip and Pelvis X-Ray 02/23/17 0000 Signed Impressions: Service Date/Time: Thursday, February 23, 2017 18:25 - CONCLUSION: 1. Suboptimal exam due to patient size. No displaced fracture or dislocation identified. Helder Hernandez MD Assessment and Plan Assessment and Plan High grade gram negative bacteremia, ID /S P Sepsis, sever likley - negative UC 2/2 previous abx use Acute urinary retention sp NSTEMI PCN allergy, immediate type (swelling) leukocytosis - dc vancomycin -cont azactam add levaquine - manriquez placement for retention Discussed Condition With Hilary Márquez MD Feb 25, 2017 22:20
[2017-02-26] VITALS (18 sets, daily range): BP systolic 118–146; BP diastolic 58–80; PULSE 65–114; RESP 18–30; TEMP 98.2–98.8; O2SAT 93–99
[2017-02-26] MEDS: RESP: ALBUTEROL 2.5 MG/IPRATROPIUM 0.5 MG NEB (SCH) INH ×5 (00:50→15:48)
[2017-02-26 03:57] LABS: AUTOMATED NEUTROPHIL # 17.6 TH/MM3 (1.8-7.7); BASOPHIL % 0.1 % (0.0-2.0); HEMATOCRIT 35.5 % (39.0-51.0); HEMO FLAGS DIFF FINAL; LYMPH % 3.6 % (9.0-44.0); LYMPHOCYTE # 0.7 TH/MM3 (1.0-4.8); MEAN CELL VOLUME 88.7 FL (80.0-100.0); MEAN CORPUSCULAR HEMOGLOBIN 28.5 PG (27.0-34.0); MEAN CORPUSCULAR HGB CONC 32.2 % (32.0-36.0); MONO % 2.6 % (0.0-8.0); NEUT % 93.7 % (16.0-70.0); PLATELET COUNT 112 TH/MM3 (150-450); RED BLOOD COUNT 4.01 MIL/MM3 (4.50-5.90); RED CELL DISTRIBUTION WIDTH 14.4 % (11.6-17.2); WHITE BLOOD COUNT 18.7 TH/MM3 (4.0-11.0)
[2017-02-26] MEDS: CHLORHEXIDINE GLUCONATE 2 % 1 PACK (2 CLOTHS) TOP SCH (03:59)
[2017-02-26 04:11] LABS: APTT (PATIENT) 35.5 SEC (24.3-30.1)
[2017-02-26 04:23] LABS: ALT (GPT) 40 U/L (12-78); ANION GAP 4 MEQ/L (5-15); AST (GOT) 41 U/L (15-37); BICARBONATE 25.7 MEQ/L (21.0-32.0); BLOOD UREA NITROGEN 60 MG/DL (7-18); CHLORIDE 111 MEQ/L (98-107); GLOMERULAR FILTRATION RATE 45 ML/MIN (>89); POTASSIUM 4.7 MEQ/L (3.5-5.1); SODIUM (NA) 141 MEQ/L (136-145)
[2017-02-26 04:25] LABS: ALKALINE PHOSPHATASE 94 U/L (45-117); TOTAL BILIRUBIN ADULT 0.6 MG/DL (0.2-1.0)
[2017-02-26] MEDS: SODIUM CHLOR 0.9% 1000 ML INJ 1,000 ML IV SCH ×3 (05:29→18:06)
[2017-02-26] MEDS: AZTREONAM INJ 2,000 MG in SODIUM CHLORIDE 0.9% INJ 100 ML IV SCH ×3 (05:29→20:57)
[2017-02-26] MEDS: HEPARIN-D5W 25,000 U/250 ML 250 ML IV PRN ×2 (05:29→23:20)
--- NOTE | 2017-02-26 07:44 | HHI.CCPN ---
Subjective Remarks/Hospital Course 72-year-old pleasant gentleman with past medical history of of CVA, HTN coronary artery disease status post stent placement to his mid LAD by Dr. Washington in May 2015 presents with complaints of shortness of breath that progressively worsening over last few weeks. Patient says he also slipped and fell on right hip today and could not get up for 12 hours. Denies any head trauma. He has a chronic venostatic lower extremity wounds for about last 4 months. Denies any chest pain, nausea or vomiting, abdominal pain, focal weakness or numbness. 02/24 Patient is lying in bed in NAD. Afebrile.On Heparin drip. 02/25 Patient is lying in bed in NAD. On Heparin drip. BC 02/23: GNR 02/26 No events overnight. On Heparin drip. Afebrile. WBC is trending down. Objective Vital Signs Date Time Temp Pulse Resp B/P (MAP) Pulse Ox O2 Delivery O2 Flow Rate FiO2 02/26/17 06:00 96 02/26/17 04:00 98.4 30 123/77 (92) 96 02/26/17 03:46 Nasal Cannula 5.00 02/23/17 23:27 40 Intake and Output 02/26/17 02/26/17 02/27/17 08:00 16:00 00:00 Intake Total 1678 ml Balance 1678 ml Result Diagram: 02/26/17 0330 02/26/17 0330 Other Results Laboratory Tests Test 02/25/17 08:55 02/25/17 16:00 02/25/17 23:36 02/26/17 03:30 Activated Partial Thromboplast Time 35.5 SEC 34.5 SEC 35.5 SEC Vancomycin Level Trough 18.3 MCG/ML White Blood Count 18.7 TH/MM3 Red Blood Count 4.01 MIL/MM3 Hemoglobin 11.4 GM/DL Hematocrit 35.5 % Mean Corpuscular Volume 88.7 FL Mean Corpuscular Hemoglobin 28.5 PG Mean Corpuscular Hemoglobin Concent 32.2 % Red Cell Distribution Width 14.4 % Platelet Count 112 TH/MM3 Mean Platelet Volume 9.9 FL Neutrophils (%) (Auto) 93.7 % Lymphocytes (%) (Auto) 3.6 % Monocytes (%) (Auto) 2.6 % Eosinophils (%) (Auto) 0.0 % Basophils (%) (Auto) 0.1 % Neutrophils # (Auto) 17.6 TH/MM3 Lymphocytes # (Auto) 0.7 TH/MM3 Monocytes # (Auto) 0.5 TH/MM3 Eosinophils # (Auto) 0.0 TH/MM3 Basophils # (Auto) 0.0 TH/MM3 CBC Comment DIFF FINAL Differential Comment Blood Urea Nitrogen 60 MG/DL Creatinine 1.54 MG/DL Random Glucose 126 MG/DL Total Protein 7.2 GM/DL Albumin 1.9 GM/DL Calcium Level 8.8 MG/DL Alkaline Phosphatase 94 U/L Aspartate Amino Transf (AST/SGOT) 41 U/L Alanine Aminotransferase (ALT/SGPT) 40 U/L Total Bilirubin 0.6 MG/DL Sodium Level 141 MEQ/L Potassium Level 4.7 MEQ/L Chloride Level 111 MEQ/L Carbon Dioxide Level 25.7 MEQ/L Anion Gap 4 MEQ/L Estimat Glomerular Filtration Rate 45 ML/MIN Imaging Last Impressions Abdomen/Pelvis CT 02/25/17 0000 Signed Impressions: Service Date/Time: Saturday, February 25, 2017 12:11 - CONCLUSION: 1. Posterior bibasilar patchiness consistent with atelectasis and/or mild infiltrates. 2. Tiny bilateral pleural effusions. 3. Uncomplicated colonic diverticulosis. 4. Markedly enlarged prostate gland. 5. Small midline ventral abdominal wall hernia containing only fat. 6. Bilobed infrarenal abdominal aortic aneurysm which measures 3.4 cm in greatest dimension. 7. Degenerative changes and scoliosis of the thoraco-lumbar spine. Vinnie Montemayor MD Chest X-Ray 02/24/17 0000 Signed Impressions: Service Date/Time: Friday, February 24, 2017 03:25 - CONCLUSION: No focal infiltrates seen. Cruz Connelly MD Hip and Pelvis X-Ray 02/23/17 0000 Signed Impressions: Service Date/Time: Thursday, February 23, 2017 18:25 - CONCLUSION: 1. Suboptimal exam due to patient size. No displaced fracture or dislocation identified. Helder Hernandez MD Objective Remarks GENERAL: 72 years old morbidly obese male in moderate respiratory distress on facemask BiPAP SKIN: Focused skin assessment warm/dry. HEAD: Atraumatic. Normocephalic. EYES: Pupils equal and round. No scleral icterus. No injection or drainage. ENT: No nasal bleeding or discharge. Mucous membranes pink and moist. NECK: Trachea midline. No JVD. CARDIOVASCULAR: Tachycardic in the 120s. No murmur appreciated. RESPIRATORY: + accessory muscle use.Decreased breath sounds. GASTROINTESTINAL: Abdomen soft, non-tender, nondistended. . MUSCULOSKELETAL:Bilateral lower extremity edema, nixon scaling rash that has been there for months. Right leg has some erythema surrounding the rash. NEUROLOGICAL: Awake and alert. No obvious cranial nerve deficits. Motor grossly within normal limits. Normal speech. A/P Assessment and Plan Non-STEMI Resp Insuff Leukocytosis Gram negative bacteremia UTI GUALBERTO Rhabdo Mild lactic acidemia Hypertension Chronic venous stasis Plan Neuro: Awake and alert Pulm: Continue with oxygen keep sat >92% Bronchodilators, NIPPV PRN for resp distress CV: Monitor HR and BP keep MAP>65mmHg Continue ASA, Lipitor, Coreg, Plavix. On Heparin drip- monitor PTT. Echo showed EF 45% Cards is following- Dr. Thompson, will need cardiac cath when stable. : Monitor renal function, I/O's, avoid nephrotoxins On NS@84ml/hr. Renal function is improving with Cr: 1.[address] abdomen/pelvis: colonic diverticulosis. Markedly enlarged prostate gland.. Small midline ventral abdominal wall hernia containing only fat. 6. Bilobed infrarenal abdominal aortic aneurysm which measures 3.4 cm in greatest dimension. GI: On PO diet ID: Continue with abx ( Aztreonam, Levaquin) monitor for signs of infections ( Fever, WBC) WBC is trending down ID is following BC from 02/23: GNR, follow up on urine cx BC 02/24: NGTD Wound service is following for Chronic venous stasis Heme: Monitor CBC, coags- on Heparin drip Endo: SSI for glycemic control GI prophylaxis- on Pepcid DVT prophylaxis- On Heparin drip Level 3 Zion Driver MD Feb 26, 2017 07:44
--- NOTE | 2017-02-26 08:06 | PD.CARD.PN ---
Subjective Subjective Remarks Denies dyspnea, CP, dizziness, palpitations, PND. Slept well. Objective Medications Item Value Date Time Atorvastatin 40 mg 02/24/172099 Calcium HS/PO 02/25/172054 (Lipitor) Clopidogrel 75 mg 02/24/17 0900 Bisulfate DAILY/PO 02/25/17852 (Plavix) Aspirin 325 mg 02/24/17 0900 (Ecotrin Ec) DAILY/PO 02/25/17852 Atorvastatin 10 mg 02/23/172099 Calcium HS/PO (Lipitor) Carvedilol 3.125 mg 02/23/172099 (Coreg) BID/PO 02/25/172054 Heparin Sodium/ 250 ml @ 10 mls/hr 02/23/171999 Dextrose TITRATE PRN/IV 02/26/17 05 Current Medications Medications (Trade) Dose Ordered Sig/Alexandro Route Start Time Stop Time Status Last Admin (Lipitor) 10 mg HS PO 02/23/17 21:00 02/24/17 01:41 (Coreg) 3.125 mg BID PO 02/23/17 21:00 02/25/17 20:55 (Plavix) 75 mg DAILY PO 02/24/17 09:00 02/25/17 08:53 (Nitrostat Sl) 0.4 mg Q5M PRN SL 02/23/17 19:45 (Percocet 5-325 Mg) 1 tab Q6H PRN PO 02/23/17 19:45 Future Hold Sodium Chloride 1,000 ml @ 84 mls/hr [id number] IV 02/23/17 19:42 02/26/17 05:29 (NS Flush) 2 ml UNSCH PRN IV FLUSH 02/23/17 19:45 (NS Flush) 2 ml BID IV FLUSH 02/23/17 21:00 02/25/17 20:55 (Tylenol) 650 mg Q6H PRN PO 02/23/17 19:45 (Morphine Inj) 2 mg Q2H PRN IV PUSH 02/23/17 19:45 (Pepcid Inj) 20 mg DAILY IV PUSH 02/23/17 21:00 02/25/17 09:10 (Ativan Inj) 1 mg Q1H PRN IV PUSH 02/23/17 19:45 (Zofran Inj) 4 mg Q6H PRN IV PUSH 02/23/17 19:45 (Ambien) 5 mg HS PRN PO 02/23/17 19:45 (Duoneb Neb) 1 ampule Q4HR NEB INH 02/23/17 20:00 02/26/17 03:44 (Duoneb Neb) 1 ampule Q2HR NEB PRN INH 02/23/17 19:45 Miscellaneous Information 1 [id number] XX 02/23/17 19:45 (Chlorhexidine 2% Cloth) 3 pack Taper DAILY@04 TOP 02/24/17 04:00 02/20/18 03:59 02/26/17 03:59 (Chlorhexidine 2% Cloth) 3 pack UNSCH PRN TOP 02/23/17 19:45 (Roxanne-Colace) 1 tab BID PO 02/23/17 21:00 02/25/17 20:56 (Milk Of Magnesia Liq) 30 ml Q12H PRN PO 02/23/17 19:45 (Senokot) 17.2 mg Q12H PRN PO 02/23/17 19:45 (Dulcolax Supp) 10 mg DAILY PRN RECTAL 02/23/17 19:45 (Lactulose Liq) 30 ml DAILY PRN PO 02/23/17 19:45 (Ecotrin Ec) 325 mg DAILY PO 02/24/17 09:00 02/25/17 08:53 (Heparin Inj) 5,000 units UNSCH PRN IV PUSH 02/24/17 02:00 (Heparin Inj) 2,500 units UNSCH PRN IV PUSH 02/24/17 02:00 Heparin Sodium/ Dextrose 250 ml @ 10 mls/hr TITRATE PRN IV 02/23/17 20:00 02/26/17 05:29 Aztreonam 2000 mg/ Sodium Chloride 100 ml @ 200 mls/hr Q8H IV 02/24/17 06:00 02/26/17 05:29 (Lipitor) 40 mg HS PO 02/24/17 21:00 02/25/17 20:55 Levofloxacin/ Dextrose 100 ml @ 100 mls/hr Q48H IV 02/27/17 21:00 Vital Signs / I&O Vital Signs Date Time Temp Pulse Resp B/P (MAP) Pulse Ox O2 Delivery O2 Flow Rate FiO2 02/26/17 06:00 96 02/26/17 04:00 98.4 93 30 123/77 (92) 96 02/26/17 04:00 93 02/26/17 03:46 98 Nasal Cannula 5.00 02/26/17 02:00 90 02/26/17 00:00 92 02/26/17 00:00 98.8 92 28 118/78 (91) 95 02/25/17 22:00 95 02/25/17 20:53 98 Nasal Cannula 5.00 02/25/17 20:00 102 02/25/17 20:00 97.4 102 37 122/71 (88) 93 02/25/17 18:21 93 Nasal Cannula 6.00 02/25/17 18:00 105 02/25/17 17:00 99 02/25/17 16:00 98.1 97 30 104/73 (83) 96 02/25/17 16:00 97 02/25/17 15:00 96 02/25/17 14:00 95 02/25/17 13:00 95 02/25/17 12:00 98.3 93 29 106/60 (75) 96 02/25/17 12:00 93 02/25/17 11:00 92 02/25/17 10:00 92 02/25/17 09:02 96 Nasal Cannula 3.00 02/25/17 09:00 97 I/O 02/25/17 02/25/17 02/25/17 02/26/17 02/26/17 02/26/17 07:00 15:00 23:00 07:00 15:00 23:00 Intake Total 2965 ml 1100 ml 50 ml 1928 ml Output Total 400 ml 750 ml Balance 2565 ml 1100 ml -700 ml 1928 ml Intake Oral 120 ml 50 ml 400 ml IV Total 2845 ml 1100 ml 1528 ml Output Urine Total 400 ml 750 ml Bladder Scan Volume Amount 440 ml # Voids 3 # Bowel Movements 0 0 Physical Exam GENERAL: Well developed, well nourished. No acute distress. HEENT: Jugular venous pressure very difficult to assess. CHEST: Lungs clear to auscultation anteriorly. CARDIAC: Regular rate and rhythm without S3, S4, or murmur. ABDOMEN: Soft, nontender, no hepatosplenomegaly. Bowel sounds present. EXTREMITIES: No clubbing, cyanosis, or edema. Chronic venous stasis changes. Laboratory Laboratory Tests Test 02/25/17 08:55 02/25/17 16:00 02/25/17 23:36 02/26/17 03:30 Activated Partial Thromboplast Time 35.5 SEC 34.5 SEC 35.5 SEC Vancomycin Level Trough 18.3 MCG/ML White Blood Count 18.7 TH/MM3 Red Blood Count 4.01 MIL/MM3 Hemoglobin 11.4 GM/DL Hematocrit 35.5 % Mean Corpuscular Volume 88.7 FL Mean Corpuscular Hemoglobin 28.5 PG Mean Corpuscular Hemoglobin Concent 32.2 % Red Cell Distribution Width 14.4 % Platelet Count 112 TH/MM3 Mean Platelet Volume 9.9 FL Neutrophils (%) (Auto) 93.7 % Lymphocytes (%) (Auto) 3.6 % Monocytes (%) (Auto) 2.6 % Eosinophils (%) (Auto) 0.0 % Basophils (%) (Auto) 0.1 % Neutrophils # (Auto) 17.6 TH/MM3 Lymphocytes # (Auto) 0.7 TH/MM3 Monocytes # (Auto) 0.5 TH/MM3 Eosinophils # (Auto) 0.0 TH/MM3 Basophils # (Auto) 0.0 TH/MM3 CBC Comment DIFF FINAL Differential Comment Blood Urea Nitrogen 60 MG/DL Creatinine 1.54 MG/DL Random Glucose 126 MG/DL Total Protein 7.2 GM/DL Albumin 1.9 GM/DL Calcium Level 8.8 MG/DL Alkaline Phosphatase 94 U/L Aspartate Amino Transf (AST/SGOT) 41 U/L Alanine Aminotransferase (ALT/SGPT) 40 U/L Total Bilirubin 0.6 MG/DL Sodium Level 141 MEQ/L Potassium Level 4.7 MEQ/L Chloride Level 111 MEQ/L Carbon Dioxide Level 25.7 MEQ/L Anion Gap 4 MEQ/L Estimat Glomerular Filtration Rate 45 ML/MIN Assessment and Plan Problem List: (1) Non-ST elevation OK (NSTEMI) ICD Codes: I21.4 - Non-ST elevation (NSTEMI) myocardial infarction Status: Acute Plan: Stable overnight. No definite angina. Dyspnea resolved. Troponin levels trending downward. EF unchanged from last year, ~45%. Renal indices and leukocytosis continue to improve. REC cath tomorrow continue beta kelsie, ASA, heparin, clopidogrel; no STEVAN-I for now with his renal insufficiency (2) Paroxysmal supraventricular tachycardia ICD Codes: I47.1 - Supraventricular tachycardia Status: Acute Plan: Initial admission EKG's suboptimal, possible SVT. No definite recurrences. Continue beta kelsie. (3) Hypertension ICD Codes: I10 - Essential (primary) hypertension Status: Chronic Plan: Stable. Normotensive. Continue to monitor. (4) Ischemic cardiomyopathy ICD Codes: I25.5 - Ischemic cardiomyopathy Status: Chronic Plan: No major change in EF, 45%, by echo, compared to last year by cath. No definite CHF except tiny bilateral pleural effusions noted on abdominal CT. Rec continue current medical regimen. Code Status full code Discussed Condition With patient Problem Qualifiers (1) Hypertension: Qualified Codes: I10 - Essential (primary) hypertension Diallo Thompson MD Feb 26, 2017 08:06
[2017-02-26] MEDS ORDERED: diphenhydrAMINE HCL 50 MG CAP PO SCH (08:15)
[2017-02-26] MEDS ORDERED: DIAZEPAM 10 MG TAB PO SCH (08:15)
[2017-02-26] MEDS ORDERED: MIDAZOLAM HCL 2 MG/2 ML VIAL IV PUSH SCH (08:15)
[2017-02-26] MEDS: DOCUSATE SODIUM 50 MG/SENNA 8.6 MG TAB PO SCH ×2 (09:00→20:57)
[2017-02-26] MEDS: FAMOTIDINE 20 MG/2 ML VIAL IV PUSH SCH (09:00)
[2017-02-26] MEDS: SODIUM CHLORIDE 0.9% FLUSH 10 ML FLUSH IV FLUSH SCH ×2 (09:00→20:57)
[2017-02-26] MEDS: CARVEDILOL 3.125 MG TAB PO SCH ×2 (09:26→20:56)
[2017-02-26] MEDS: CLOPIDOGREL 75 MG TAB PO SCH (09:26)
[2017-02-26] MEDS: ASPIRIN EC 325 MG TABEC PO SCH (09:27)
--- NOTE | 2017-02-26 10:33 | HHI.IDPN ---
Subjective Subjective Remarks pt is awake afebrile co urinating difficulties foely was attempted yday but could not been introduce Urology consult is P Growing 10/21 bottles with GNB: Morganella R imipene, Amp/S Antibiotics azctam levaquin Allergies: Coded Allergies: azithromycin (Unverified Allergy, Severe, Swelling, 10/28/16) erythromycin base (Unverified Allergy, Severe, Swelling, 10/28/16) penicillin G (Unverified Allergy, Severe, Swelling, 10/28/16) Objective . Vital Signs Date Time Temp Pulse Resp B/P (MAP) Pulse Ox O2 Delivery O2 Flow Rate FiO2 02/26/17 08:32 93 Nasal Cannula 5.00 02/26/17 06:00 96 02/26/17 04:00 98.4 93 30 123/77 (92) 96 02/26/17 04:00 93 02/26/17 03:46 98 Nasal Cannula 5.00 02/26/17 02:00 90 02/26/17 00:00 92 02/26/17 00:00 98.8 92 28 118/78 (91) 95 02/25/17 22:00 95 02/25/17 20:53 98 Nasal Cannula 5.00 02/25/17 20:00 102 02/25/17 20:00 97.4 102 37 122/71 (88) 93 02/25/17 18:21 93 Nasal Cannula 6.00 02/25/17 18:00 105 02/25/17 17:00 99 02/25/17 16:00 98.1 97 30 104/73 (83) 96 02/25/17 16:00 97 02/25/17 15:00 96 02/25/17 14:00 95 02/25/17 13:00 95 02/25/17 12:00 98.3 93 29 106/60 (75) 96 02/25/17 12:00 93 02/25/17 11:00 92 . Laboratory Tests Test 02/24/17 11:50 02/25/17 05:07 02/26/17 03:30 White Blood Count 27.7 TH/MM3 24.0 TH/MM3 18.7 TH/MM3 Red Blood Count 4.16 MIL/MM3 4.08 MIL/MM3 4.01 MIL/MM3 Hemoglobin 12.0 GM/DL 11.5 GM/DL 11.4 GM/DL Hematocrit 36.3 % 35.8 % 35.5 % Mean Corpuscular Volume 87.3 FL 87.9 FL 88.7 FL Mean Corpuscular Hemoglobin 28.8 PG 28.2 PG 28.5 PG Mean Corpuscular Hemoglobin Concent 33.0 % 32.0 % 32.2 % Red Cell Distribution Width 14.2 % 14.4 % 14.4 % Platelet Count 149 TH/MM3 148 TH/MM3 112 TH/MM3 Mean Platelet Volume 9.6 FL 9.8 FL 9.9 FL Neutrophils (%) (Auto) 95.0 % 94.8 % 93.7 % Lymphocytes (%) (Auto) 1.9 % 2.5 % 3.6 % Monocytes (%) (Auto) 2.8 % 2.4 % 2.6 % Eosinophils (%) (Auto) 0.2 % 0.0 % 0.0 % Basophils (%) (Auto) 0.1 % 0.3 % 0.1 % Neutrophils # (Auto) 26.3 TH/MM3 22.7 TH/MM3 17.6 TH/MM3 Lymphocytes # (Auto) 0.5 TH/MM3 0.6 TH/MM3 0.7 TH/MM3 Monocytes # (Auto) 0.8 TH/MM3 0.6 TH/MM3 0.5 TH/MM3 Eosinophils # (Auto) 0.1 TH/MM3 0.0 TH/MM3 0.0 TH/MM3 Basophils # (Auto) 0.0 TH/MM3 0.1 TH/MM3 0.0 TH/MM3 CBC Comment DIFF FINAL DIFF FINAL DIFF FINAL Differential Comment Laboratory Tests Test 02/24/17 11:50 02/24/17 16:32 02/24/17 21:50 02/25/17 05:07 Blood Urea Nitrogen 49 MG/DL 63 MG/DL Creatinine 1.81 MG/DL 1.73 MG/DL Random Glucose 145 MG/DL 138 MG/DL Total Protein 7.6 GM/DL 7.4 GM/DL Albumin 2.2 GM/DL 1.9 GM/DL Calcium Level 8.7 MG/DL 8.8 MG/DL Phosphorus Level 4.3 MG/DL 4.5 MG/DL Magnesium Level 2.1 MG/DL 2.4 MG/DL Alkaline Phosphatase 103 U/L 87 U/L Aspartate Amino Transf (AST/SGOT) 85 U/L 51 U/L Alanine Aminotransferase (ALT/SGPT) 38 U/L 34 U/L Total Bilirubin 0.5 MG/DL 0.4 MG/DL Sodium Level 140 MEQ/L 142 MEQ/L Potassium Level 5.0 MEQ/L 4.9 MEQ/L Chloride Level 108 MEQ/L 110 MEQ/L Carbon Dioxide Level 24.7 MEQ/L 22.9 MEQ/L Anion Gap 7 MEQ/L 9 MEQ/L Estimat Glomerular Filtration Rate 37 ML/MIN 39 ML/MIN Troponin I 9.62 NG/ML 8.47 NG/ML 5.36 NG/ML Test 02/26/17 03:30 Blood Urea Nitrogen 60 MG/DL Creatinine 1.54 MG/DL Random Glucose 126 MG/DL Total Protein 7.2 GM/DL Albumin 1.9 GM/DL Calcium Level 8.8 MG/DL Alkaline Phosphatase 94 U/L Aspartate Amino Transf (AST/SGOT) 41 U/L Alanine Aminotransferase (ALT/SGPT) 40 U/L Total Bilirubin 0.6 MG/DL Sodium Level 141 MEQ/L Potassium Level 4.7 MEQ/L Chloride Level 111 MEQ/L Carbon Dioxide Level 25.7 MEQ/L Anion Gap 4 MEQ/L Estimat Glomerular Filtration Rate 45 ML/MIN Microbiology Date/Time Source Procedure Growth Status 02/24/17 16:31 Blood Peripheral Aerobic Blood Culture - Preliminary NO GROWTH IN 1 DAY Resulted 02/24/17 16:31 Blood Peripheral Anaerobic Blood Culture - Preliminary NO GROWTH IN 1 DAY Resulted 02/24/17 16:24 Blood Peripheral Aerobic Blood Culture - Preliminary NO GROWTH IN 1 DAY Resulted 02/24/17 16:24 Blood Peripheral Anaerobic Blood Culture - Preliminary NO GROWTH IN 1 DAY Resulted 02/23/17 21:05 Blood Peripheral Aerobic Blood Culture - Preliminary Gram Negative Amaury Resulted 02/23/17 21:05 Anaerobic Blood Culture - Preliminary Gram Negative Amaury Resulted 02/23/17 21:00 Blood Peripheral Aerobic Blood Culture - Preliminary Gram Negative Amaury Resulted 02/23/17 21:00 Anaerobic Blood Culture - Preliminary Gram Negative Amaury Resulted 02/23/17 18:24 Blood Peripheral Aerobic Blood Culture - Preliminary Gram Negative Amaury Resulted 02/23/17 18:24 Anaerobic Blood Culture - Preliminary Gram Negative Amaury Resulted 02/23/17 18:24 Blood Peripheral Aerobic Blood Culture - Preliminary Gram Negative Amaury Resulted 02/23/17 18:24 Anaerobic Blood Culture - Preliminary Gram Negative Amaury Resulted 02/24/17 23:30 Urine Catheterized Urine Urine Culture - Preliminary NO GROWTH IN 24 HOURS. Resulted Imaging Last Impressions Abdomen/Pelvis CT 02/25/17 0000 Signed Impressions: Service Date/Time: Saturday, February 25, 2017 12:11 - CONCLUSION: 1. Posterior bibasilar patchiness consistent with atelectasis and/or mild infiltrates. 2. Tiny bilateral pleural effusions. 3. Uncomplicated colonic diverticulosis. 4. Markedly enlarged prostate gland. 5. Small midline ventral abdominal wall hernia containing only fat. 6. Bilobed infrarenal abdominal aortic aneurysm which measures 3.4 cm in greatest dimension. 7. Degenerative changes and scoliosis of the thoraco-lumbar spine. Vinnie Montemayor MD Chest X-Ray 02/24/17 0000 Signed Impressions: Service Date/Time: Friday, February 24, 2017 03:25 - CONCLUSION: No focal infiltrates seen. Cruz Connelly MD Hip and Pelvis X-Ray 02/23/17 0000 Signed Impressions: Service Date/Time: Thursday, February 23, 2017 18:25 - CONCLUSION: 1. Suboptimal exam due to patient size. No displaced fracture or dislocation identified. Helder Hernandez MD Physical Exam CONSTITUTIONAL/GENERAL: This is an obese elderly patient, in no apparent distress. TUBES/LINES/DRAINS: SKIN: No jaundice, rashes, or lesions. Skin temperature appropriate. Not diaphoretic. CARDIOVASCULAR: Regular rate and rhythm without murmurs, gallops, or rubs. No JVD. Peripheral pulses symmetric. RESPIRATORY/CHEST: Symmetric, unlabored respirations. Clear to auscultation. Breath sounds equal bilaterally. No wheezes, rales, or rhonchi. GASTROINTESTINAL: Abdomen soft, non-tender, nondistended. No hepato-splenomegaly , or palpable masses. No guarding. Bowel sounds present. GENITOURINARY: Without palpable bladder distension. condom catheter in place. with small amount of clear yellow urine MUSCULOSKELETAL: Extremities without clubbing, cyanosis, + 2 edema, chronic skin changes, pachydermosis . No joint tenderness or effusion noted. No calf tenderness. No mottling or clubbing. LYMPHATICS: No palpable cervical or supraclavicular adenopathy. NEUROLOGICAL calm; awake alert, communicating PSYCHIATRIC: calm Assessment & Plan Remarks Assessment and Plan High grade gram negative bacteremia, Morganella, cw urinary pathogen Sepsis, sever frediosvaldo - negative UC 2/2 previous abx use Acute urinary retention, likely prostate vs urethral strictures: nurse was unable to insert manriquez sp NSTEMI PCN allergy, immediate type (swelling) leukocytosis; improving - dc vancomycin -cont azactam and levaquine fu sensitivities - manriquez placement for retention by urologist Discussed Condition With Hilary Márquez MD Feb 26, 2017 10:33
[2017-02-26 11:45] LABS: BLOOD GAS BASE EXCESS -1.6 mmol/L (-2-2); BLOOD GAS CARBOXYHEMOGLOBIN 0.8 % (0-4); BLOOD GAS HCO3 24 mmol/L (22-26); BLOOD GAS METHEMOGLOBIN 1.1 % (0-2); BLOOD GAS O2 HGB SATURATION 97 % (90-100); BLOOD GAS OXYGEN CONTENT 17.1 Vol % (12.0-20.0); BLOOD GAS PCO2 54 mmHg (38-42); BLOOD GAS PO2 191 mmHg (61-120); BLOOD GAS TOTAL HGB 12.3 G/DL (12.0-16.0); CRITICAL VALUE YES; DRAW SITE LT RADIAL; NUMBER OF ARTERIAL PUNCTURES 1; OXYGEN DEVICE NONREBREATHER; STAT NO; TEMP CORR TO 98.6; ULNAR PULSE PRESENT
[2017-02-26 12:08] LABS: APTT (PATIENT) 37.3 SEC (24.3-30.1)
[2017-02-26] MEDS ORDERED: GELATIN 12 MM/7 MM FOAM ONE (14:56)
[2017-02-26 16:33] LABS: BLOOD GAS BASE EXCESS -0.7 mmol/L (-2-2); BLOOD GAS CARBOXYHEMOGLOBIN 0.9 % (0-4); BLOOD GAS HCO3 25 mmol/L (22-26); BLOOD GAS METHEMOGLOBIN 1.5 % (0-2); BLOOD GAS O2 HGB SATURATION 96 % (90-100); BLOOD GAS OXYGEN CONTENT 16.2 Vol % (12.0-20.0); BLOOD GAS PCO2 49 mmHg (38-42); BLOOD GAS PO2 137 mmHg (61-120); BLOOD GAS TOTAL HGB 11.8 G/DL (12.0-16.0); CRITICAL VALUE NO; DRAW SITE LT RADIAL; FIO2 45 %; NUMBER OF ARTERIAL PUNCTURES 1; OXYGEN DEVICE BIPAP 15IPAP/5EPAP; TEMP CORR TO 98.6; ULNAR PULSE PRESENT
[2017-02-26 16:34] LABS: STAT NO
--- NOTE | 2017-02-26 16:40 | MB ---
cc: KAIA COLEMAN DATE OF CONSULTATION: 02/26/2017 HISTORY: Mr. Barroso is a 72-year-old male with history of CVA, hypertension, heart disease, who presented with worsening shortness of breath over the last few weeks. The patient had a recent fall and was brought to the hospital. The patient states that he has trouble with his equilibrium and balance, and just prior admission he was unable to get up the ground after his fall. He was then brought in by EMS. The patient was found to have a large prostate on a CT scan recently and attempt was made by the nursing staff to place a Olmedo catheter. This was unsuccessful. Urology was consulted. PAST MEDICAL HISTORY: 1. His medical history includes history of cerebrovascular accident. Hypertension 2. Hyperlipidemia 3. Heart disease status post cardiac catheterization with stenting Ischemic cardiomyopathy. PAST SURGICAL HISTORY: Cholecystectomy MEDICATIONS: for medications please refer to the chart. ALLERGIES AZITHROMYCIN ERYTHROMYCIN PENICILLIN FAMILY HISTORY No family history of prostate cancer is noted. SOCIAL HISTORY History of smoking, half pack of cigarettes a day. Denies any alcohol usage. Denies drug uses. REVIEW OF SYSTEMS Denies abdominal pain. Denies any visual changes. Denies headache. Denies chest pain present. He does have some shortness of breath. Does note gait disturbance due to his unsteady gait. He does have some voiding complaints where he has history of nocturia three to four times. PHYSICAL EXAMINATION: VITAL SIGNS: His vitals today temperature is 98.2, heart rate 102, respiratory rate 18, 146/80. IN GENERAL: He is an obese 72-year-old male in no acute stress. HEAD, EYES, EARS, NOSE, AND THROAT: Normocephalic, atraumatic. Pupils equal round react to light. NECK: Neck is supple. Trachea is midline. He is currently on C-PAP. LUNGS: Breath sounds bilaterally. HEART: Rate sinus tach. ABDOMEN: Soft, nontender, nondistended GENITOURINARY: Uncircumcised phallus meatal stenosis is noted. Testes are descended. EXTREMITIES: Showed 1-2+ edema. NEUROLOGIC: Cranial nerves II through XII intact. SKIN: No lesions. PSYCHIATRIC: Psych generalized mood. PROCEDURE: A 16-Bengali Caudae catheter was inserted with some difficulty at the bedside. The patient was noted to have meatal stenosis but is able to slide the catheter in, once I was able to break the adhesion at the meatus. 300 cc of clear urine were drained. LABORATORY FINDINGS: White count 18.7, hemoglobin 0.4, hematocrit 35.5, platelet count 112, sodium 141, potassium 4.7, chloride 111, CO2 25.7, BUN 63 and 1.5, glucose of 126. Urinalysis large leukoesterase 5 red cells, [address] scan of the abdomen and pelvis shows an enlarged prostate. There is no evidence of any hydronephrosis. Posterior bibasilar patchiness consistent with atelectasis is noted by a globular infrarenal abdominal aortic aneurysm measuring 3.4 cm in greatest dimension. Scoliosis with some degenerative changes of thoracolumbar spine. ASSESSMENT: A 72-year-old male with history of stroke with Benign prostatic hypertrophy, enlarged prostate with medial stenosis. The 16 Bengali Caudae catheter placed at the bedside with 300 cc's of clear urine drained. RECOMMENDATIONS: 1. Would recommend maintaining Olmedo catheter now 2. Start Flomax 0.4 mg p.o. q.h.s. 3. Will avoid Benadryl as this will inhibit bladder contractions. thank you for the consult and allowing me to participate in the care of this patient. Kaia Schmitz /2:46 PM /4:14 PM
[2017-02-26] MEDS: methylPREDNISolone SOD SUCC 40 MG/1 ML VIAL IV SCH (20:56)
[2017-02-26] MEDS: ATORVASTATIN 10 MG TAB PO SCH (20:56)
[2017-02-26] MEDS: ATORVASTATIN 40 MG TAB PO SCH (20:56)
[2017-02-26] MEDS: RESP: ALBUTEROL 2.5 MG/IPRATROPIUM 0.5 MG NEB (SCH) NEB (21:41)
[2017-02-27] VITALS (17 sets, daily range): BP systolic 126–146; BP diastolic 65–87; PULSE 76–86; RESP 15–27; TEMP 98–98.5; O2SAT 93–99
[2017-02-27] MEDS: RESP: ALBUTEROL 2.5 MG/IPRATROPIUM 0.5 MG NEB (SCH) NEB ×4 (02:42→20:44)
[2017-02-27] MEDS: CHLORHEXIDINE GLUCONATE 2 % 1 PACK (2 CLOTHS) TOP SCH (04:00)
[2017-02-27] MEDS: AZTREONAM INJ 2,000 MG in SODIUM CHLORIDE 0.9% INJ 100 ML IV SCH ×2 (04:50→15:44)
--- NOTE | 2017-02-27 05:54 | MB ---
cc: NICOLA BRITO DATE OF CONSULTATION 02/26/2017 REASON FOR CONSULTATION Respiratory failure and history of bilateral pulmonary infiltrates. PRESENT ILLNESS This is 72-year-old white male with a history of hypertension and coronary artery disease who was admitted through the emergency room with shortness of breath with increasing dyspnea and orthopnea. The patient apparently had some falls prior to this admission with contusion to the right hip. He has been admitted to the intensive care unit and cardiac workup was being done for the possibility of coronary artery disease with angina. The patient has also noted to have chronic lower extremity venous stasis with lymphedema and ulceration of the skin. He has had no paralysis but has some numbness of the lower extremities. The patient was noted to be in respiratory distress and he was hypoxic and had to be placed on a BiPap mask. There is no history of night sweats, fevers or chills. ALLERGIES E-MYCIN PENICILLIN. PAST MEDICAL HISTORY 1. Coronary artery disease with stent placement to the LAD. 2. History of cholecystectomy. 3. PTCA and LAD in May 2014. 4. Hypertension. FAMILY HISTORY Noncontributory. HABITS The patient was a smoker, half to one-pack per day and had done so for more than 35 years. SYSTEMS REVIEW The patient is on a BiPap mask and able to provide significant details of his history. PHYSICAL EXAMINATION GENERAL: This is an obese, elderly white male who is on BiPap. He is stable. There is mild peripheral cyanosis. VITAL SIGNS: Blood pressure 130/70, pulse 80, respirations 18, temperature 97.8. HEENT: Head normocephalic. Pupils reactive. Tongue moist. Throat is clear. Nasal mucosae edematous. NECK: Supple. No bruits or thyroid enlargement. CHEST: Equal movements with expiratory wheezes throughout both lung hancock. No crackles. CARDIOVASCULAR: Heart sounds are regular. S1-S2. No murmur. ABDOMEN: Soft, benign. No mass. No organomegaly. EXTREMITIES: No edema. NEUROLOGIC: Reflexes 1+ with no gross motor deficits. Cranial nerves grossly intact. IMPRESSION 1. Chronic bronchitis.COPD 2. History of hypertension. 3. Acute respiratory failure 4. NSTEMI. 5. H/O Coronary Artery disease. 6. Sepsis/ Pneumonia PLAN 1. The patient will be continued on antibiotics 2. Nebulized albuterol/Atrovent solution added q.i.d. 3. Symbicort 160/4.5 one puff twice daily. 4. BiPAP mask 15/5 cm and FIo2 50 % and wean to keep sat >92. 5. Add Solumedrol 40 mg IV q12h. 6. CBC,ABG,CXR in am. 7. Cardiac Evaluation with catheterization when stable. 8. Wean to Ventimask 50% in am. Thank you for this consultation. MD DIXIE Nieto/GLENN /12:43 AM /5:36 AM MTDD
--- NOTE | 2017-02-27 06:28 | RADRPT ---
EXAM DATE/TIME: 02/27/2017 04:56 [facility] COMPARISON: CHEST SINGLE AP, February 24, 2017, 3:25. INDICATIONS : Evaluate for pneumonia MEDICAL HISTORY : Hypertension. Cerebrovascular disease. Cardiovascular disease SURGICAL HISTORY : Cholecystectomy. Coronary artery stent. ENCOUNTER: Subsequent ACUITY: 4 - 6 days PAIN SCORE: Non-responsive. LOCATION: Bilateral chest FINDINGS: 2 AP views of the chest. Mild elevation of the right hemidiaphragm unchanged. Lungs grossly clear. No evidence of pleural effusion or pneumothorax. CONCLUSION: Mild right hemidiaphragm elevation. No significant interval change. Moise Carpenter MD on February 27, 2017 at 6:23 Board Certified Radiologist. This report was verified electronically.
[2017-02-27 07:04] LABS: APTT (PATIENT) 52.1 SEC (24.3-30.1)
[2017-02-27 07:07] LABS: AUTOMATED NEUTROPHIL # 14.7 TH/MM3 (1.8-7.7); BASOPHIL % 0.1 % (0.0-2.0); HEMATOCRIT 35.1 % (39.0-51.0); LYMPH % 3.8 % (9.0-44.0); LYMPHOCYTE # 0.6 TH/MM3 (1.0-4.8); MEAN CELL VOLUME 87.3 FL (80.0-100.0); MEAN CORPUSCULAR HEMOGLOBIN 28.7 PG (27.0-34.0); MEAN CORPUSCULAR HGB CONC 32.9 % (32.0-36.0); MONO % 2.3 % (0.0-8.0); NEUT % 93.8 % (16.0-70.0); PLATELET COUNT 97 TH/MM3 (150-450); RED BLOOD COUNT 4.02 MIL/MM3 (4.50-5.90); RED CELL DISTRIBUTION WIDTH 14.4 % (11.6-17.2); WHITE BLOOD COUNT 15.7 TH/MM3 (4.0-11.0)
[2017-02-27 07:14] LABS: HEMO FLAGS AUTO DIFF
[2017-02-27 07:37] LABS: ALT (GPT) 40 U/L (12-78); ANION GAP 6 MEQ/L (5-15); AST (GOT) 33 U/L (15-37); BICARBONATE 25.9 MEQ/L (21.0-32.0); BLOOD UREA NITROGEN 52 MG/DL (7-18); CHLORIDE 113 MEQ/L (98-107); GLOMERULAR FILTRATION RATE 50 ML/MIN (>89); POTASSIUM 4.8 MEQ/L (3.5-5.1); SODIUM (NA) 145 MEQ/L (136-145)
[2017-02-27 07:39] LABS: ALKALINE PHOSPHATASE 89 U/L (45-117); TOTAL BILIRUBIN ADULT 0.6 MG/DL (0.2-1.0)
--- NOTE | 2017-02-27 08:01 | HHI.CCPN ---
Subjective Remarks/Hospital Course 72-year-old pleasant gentleman with past medical history of of CVA, HTN coronary artery disease status post stent placement to his mid LAD by Dr. Washington in May 2015 presents with complaints of shortness of breath that progressively worsening over last few weeks. Patient says he also slipped and fell on right hip today and could not get up for 12 hours. Denies any head trauma. He has a chronic venostatic lower extremity wounds for about last 4 months. Denies any chest pain, nausea or vomiting, abdominal pain, focal weakness or numbness. 02/24 Patient is lying in bed in NAD. Afebrile.On Heparin drip. 02/25 Patient is lying in bed in NAD. On Heparin drip. BC 02/23: GNR 02/26 No events overnight. On Heparin drip. Afebrile. WBC is trending down. 02/27 No events overnight. Remains on BIPAP 02/17 with 40% FIO2. Afebrile. On Heparin drip. For possible cardiac cath today. Objective Vital Signs Date Time Temp Pulse Resp B/P (MAP) Pulse Ox O2 Delivery O2 Flow Rate FiO2 02/27/17 06:00 78 02/27/17 04:29 94 40 02/27/17 04:00 98.0 26 146/76 (99) 02/26/17 21:42 BiPAP 02/26/17 08:32 5.00 Intake and Output 02/27/17 02/27/17 02/28/17 08:00 16:00 00:00 Output Total 725 ml Balance -725 ml Result Diagram: 02/27/17 0545 02/27/17 0545 Other Results Laboratory Tests Test 02/26/17 11:35 02/26/17 11:50 02/26/17 16:26 02/26/17 21:09 Blood Gas Puncture Site LT RADIAL LT RADIAL Blood Gas Patient Temperature 98.6 98.6 Blood Gas HCO3 24 mmol/L 25 mmol/L Blood Gas Base Excess -1.6 mmol/L -0.7 mmol/L Blood Gas Oxygen Saturation 97 % 96 % Arterial Blood pH 7.28 7.32 Arterial Blood Partial Pressure CO2 54 mmHg 49 mmHg Arterial Blood Partial Pressure O2 191 mmHg 137 mmHg Arterial Blood Oxygen Content 17.1 Vol % 16.2 Vol % Arterial Blood Carboxyhemoglobin 0.8 % 0.9 % Arterial Blood Methemoglobin 1.1 % 1.5 % Blood Gas Hemoglobin 12.3 G/DL 11.8 G/DL Oxygen Delivery Device NONREBREATHER BIPAP 15IPAP/5EPAP Activated Partial Thromboplast Time 37.3 SEC 48.0 SEC Blood Gas Inspired Oxygen 45 % Test 02/27/17 05:45 White Blood Count 15.7 TH/MM3 Red Blood Count 4.02 MIL/MM3 Hemoglobin 11.6 GM/DL Hematocrit 35.1 % Mean Corpuscular Volume 87.3 FL Mean Corpuscular Hemoglobin 28.7 PG Mean Corpuscular Hemoglobin Concent 32.9 % Red Cell Distribution Width 14.4 % Platelet Count 97 TH/MM3 Mean Platelet Volume 10.3 FL Neutrophils (%) (Auto) 93.8 % Lymphocytes (%) (Auto) 3.8 % Monocytes (%) (Auto) 2.3 % Eosinophils (%) (Auto) 0.0 % Basophils (%) (Auto) 0.1 % Neutrophils # (Auto) 14.7 TH/MM3 Lymphocytes # (Auto) 0.6 TH/MM3 Monocytes # (Auto) 0.4 TH/MM3 Eosinophils # (Auto) 0.0 TH/MM3 Basophils # (Auto) 0.0 TH/MM3 CBC Comment AUTO DIFF Activated Partial Thromboplast Time 52.1 SEC Blood Urea Nitrogen 52 MG/DL Creatinine 1.39 MG/DL Random Glucose 163 MG/DL Total Protein 6.8 GM/DL Albumin 1.7 GM/DL Calcium Level 9.0 MG/DL Alkaline Phosphatase 89 U/L Aspartate Amino Transf (AST/SGOT) 33 U/L Alanine Aminotransferase (ALT/SGPT) 40 U/L Total Bilirubin 0.6 MG/DL Sodium Level 145 MEQ/L Potassium Level 4.8 MEQ/L Chloride Level 113 MEQ/L Carbon Dioxide Level 25.9 MEQ/L Anion Gap 6 MEQ/L Estimat Glomerular Filtration Rate 50 ML/MIN Imaging Last Impressions Chest X-Ray 02/27/17 0600 Signed Impressions: Service Date/Time: Monday, February 27, 2017 04:56 - CONCLUSION: Mild right hemidiaphragm elevation. No significant interval change. Moise Carpenter MD Abdomen/Pelvis CT 02/25/17 0000 Signed Impressions: Service Date/Time: Saturday, February 25, 2017 12:11 - CONCLUSION: 1. Posterior bibasilar patchiness consistent with atelectasis and/or mild infiltrates. 2. Tiny bilateral pleural effusions. 3. Uncomplicated colonic diverticulosis. 4. Markedly enlarged prostate gland. 5. Small midline ventral abdominal wall hernia containing only fat. 6. Bilobed infrarenal abdominal aortic aneurysm which measures 3.4 cm in greatest dimension. 7. Degenerative changes and scoliosis of the thoraco-lumbar spine. Vinnie Montemayor MD Hip and Pelvis X-Ray 02/23/17 0000 Signed Impressions: Service Date/Time: Thursday, February 23, 2017 18:25 - CONCLUSION: 1. Suboptimal exam due to patient size. No displaced fracture or dislocation identified. Helder Hernandez MD Objective Remarks GENERAL: 72 years old morbidly obese maleon BIPAP SKIN: Focused skin assessment warm/dry. HEAD: Atraumatic. Normocephalic. EYES: Pupils equal and round. No scleral icterus. No injection or drainage. ENT: Mucous membranes pink and moist. NECK: Trachea midline. No JVD. CARDIOVASCULAR: RRR, nl S1, S2 RESPIRATORY: + accessory muscle use.Decreased breath sounds. GASTROINTESTINAL: Abdomen soft, non-tender, nondistended. . MUSCULOSKELETAL:Bilateral lower extremity edema, nixon scaling rash that has been there for months. Chronic venous stasis NEUROLOGICAL: Awake and alert. No obvious cranial nerve deficits. Motor grossly within normal limits. Normal speech. A/P Assessment and Plan Non-STEMI Resp Insuff Leukocytosis Gram negative bacteremia- Likely source UTI GUALBERTO..improving Rhabdo Mild lactic acidemia Hypertension Chronic venous stasis Plan Neuro: Awake and alert Pulm: Continue with oxygen keep sat >92% Bronchodilators, NIPPV PRN for resp distress Check ABG CV: Monitor HR and BP keep MAP>65mmHg Continue ASA, Lipitor, Coreg, Plavix. On Heparin drip- monitor PTT. Echo showed EF 45% Cards is following- Dr. Thompson,cardiac cath held today due to resp status. : Monitor renal function, I/O's, avoid nephrotoxins On NS@84ml/hr. Renal function is improving with Cr: 1.[address] abdomen/pelvis: colonic diverticulosis. Markedly enlarged prostate gland.. Small midline ventral abdominal wall hernia containing only fat. Bilobed infrarenal abdominal aortic aneurysm which measures 3.4 cm in greatest dimension. Place on Flomax 0.4mg QD. Urology is following- Dr. Arroyo GI: On PO diet ID: Continue with abx ( Aztreonam, Levaquin) monitor for signs of infections ( Fever, WBC) WBC is trending down ID is following BC from 02/23: Eloise Brunner, follow up on urine cx- NGTD, sputum cx : normal resp susu. BC 02/24: NGTD Wound service is following for Chronic venous stasis Heme: Monitor CBC, coags- on Heparin drip Endo: SSI for glycemic control GI prophylaxis- on Pepcid DVT prophylaxis- On Heparin drip Level 3 Zion Driver MD Feb 27, 2017 08:01
[2017-02-27] MEDS: methylPREDNISolone SOD SUCC 40 MG/1 ML VIAL IV SCH ×2 (08:14→19:34)
[2017-02-27] MEDS: FAMOTIDINE 20 MG/2 ML VIAL IV PUSH SCH ×2 (08:14→10:22)
[2017-02-27] MEDS: CARVEDILOL 3.125 MG TAB PO SCH ×2 (08:14→19:35)
[2017-02-27] MEDS: ASPIRIN EC 325 MG TABEC PO SCH (08:14)
[2017-02-27] MEDS: CLOPIDOGREL 75 MG TAB PO SCH (08:14)
[2017-02-27] MEDS: DOCUSATE SODIUM 50 MG/SENNA 8.6 MG TAB PO SCH ×2 (08:15→19:35)
[2017-02-27 08:26] LABS: PLATELET ESTIMATE SMEAR LOW (NORMAL); PLATELET MORPHOLOGY NORMAL (NORMAL); SCAN/DIFF AUTO DIFF CONFIRMED
[2017-02-27] MEDS: SODIUM CHLORIDE 0.9% FLUSH 10 ML FLUSH IV FLUSH SCH ×2 (09:00→19:35)
[2017-02-27 09:15] LABS: BLOOD GAS BASE EXCESS -0.4 mmol/L (-2-2); BLOOD GAS CARBOXYHEMOGLOBIN 0.8 % (0-4); BLOOD GAS HCO3 25 mmol/L (22-26); BLOOD GAS METHEMOGLOBIN 1.2 % (0-2); BLOOD GAS O2 HGB SATURATION 96 % (90-100); BLOOD GAS OXYGEN CONTENT 15.4 Vol % (12.0-20.0); BLOOD GAS PCO2 54 mmHg (38-42); BLOOD GAS PO2 124 mmHg (61-120); BLOOD GAS TOTAL HGB 11.3 G/DL (12.0-16.0); TEMP CORR TO 98.6
[2017-02-27 09:16] LABS: CRITICAL VALUE YES; DRAW SITE RT RADIAL; FIO2 40 %; NUMBER OF ARTERIAL PUNCTURES 1; OXYGEN DEVICE BIPAP 5EPAP/15 IPAP; STAT NO; ULNAR PULSE PRESENT
--- NOTE | 2017-02-27 09:36 | PD.CARD.PN ---
Subjective Subjective Remarks Denies dyspnea, CP, dizziness, palpitations, PND. Slept well. Objective Medications Item Value Date Time Atorvastatin 40 mg 02/24/17 2100 Calcium HS/PO 02/25/172054 (Lipitor) Clopidogrel 75 mg 02/24/17 0900 Bisulfate DAILY/PO 02/25/17 0853 (Plavix) Aspirin 325 mg 02/24/17 0900 (Ecotrin Ec) DAILY/PO 02/25/17 0853 Atorvastatin 40 mg 02/24/17 2100 Calcium HS/PO 02/26/172055 (Lipitor) Clopidogrel 75 mg 02/24/17 0900 Bisulfate DAILY/PO 02/27/17 0814 (Plavix) Aspirin 325 mg 02/24/17 0900 (Ecotrin Ec) DAILY/PO 02/27/17813 Carvedilol 3.125 mg 02/23/172099 (Coreg) BID/PO 02/27/17 08 Heparin Sodium/ 250 ml @ 10 mls/hr 02/23/171999 Dextrose TITRATE PRN/IV 02/26/17 2320 Current Medications Medications (Trade) Dose Ordered Sig/Alexandro Route Start Time Stop Time Status Last Admin (Lipitor) 10 mg HS PO 02/23/17 21:00 02/26/17 20:56 (Coreg) 3.125 mg BID PO 02/23/17 21:00 02/27/17 08:14 (Plavix) 75 mg DAILY PO 02/24/17 09:00 02/27/17 08:14 (Nitrostat Sl) 0.4 mg Q5M PRN SL 02/23/17 19:45 (Percocet 5-325 Mg) 1 tab Q6H PRN PO 02/23/17 19:45 Future Hold Sodium Chloride 1,000 ml @ 84 mls/hr [id number] IV 02/23/17 19:42 02/26/17 05:29 (NS Flush) 2 ml UNSCH PRN IV FLUSH 02/23/17 19:45 (NS Flush) 2 ml BID IV FLUSH 02/23/17 21:00 02/26/17 20:57 (Tylenol) 650 mg Q6H PRN PO 02/23/17 19:45 (Morphine Inj) 2 mg Q2H PRN IV PUSH 02/23/17 19:45 (Pepcid Inj) 20 mg DAILY IV PUSH 02/23/17 21:00 02/25/17 09:10 (Ativan Inj) 1 mg Q1H PRN IV PUSH 02/23/17 19:45 (Zofran Inj) 4 mg Q6H PRN IV PUSH 02/23/17 19:45 (Ambien) 5 mg HS PRN PO 02/23/17 19:45 (Duoneb Neb) 1 ampule Q2HR NEB PRN INH 02/23/17 19:45 Miscellaneous Information 1 Q361D XX 02/23/17 19:45 (Chlorhexidine 2% Cloth) 3 pack Taper DAILY@04 TOP 02/24/17 04:00 02/20/18 03:59 02/26/17 03:59 (Chlorhexidine 2% Cloth) 3 pack UNSCH PRN TOP 02/23/17 19:45 (Roxanne-Colace) 1 tab BID PO 02/23/17 21:00 02/25/17 20:56 (Milk Of Magnesia Liq) 30 ml Q12H PRN PO 02/23/17 19:45 (Senokot) 17.2 mg Q12H PRN PO 02/23/17 19:45 (Dulcolax Supp) 10 mg DAILY PRN RECTAL 02/23/17 19:45 (Lactulose Liq) 30 ml DAILY PRN PO 02/23/17 19:45 (Ecotrin Ec) 325 mg DAILY PO 02/24/17 09:00 02/27/17 08:14 (Heparin Inj) 5,000 units UNSCH PRN IV PUSH 02/24/17 02:00 (Heparin Inj) 2,500 units UNSCH PRN IV PUSH 02/24/17 02:00 Heparin Sodium/ Dextrose 250 ml @ 10 mls/hr TITRATE PRN IV 02/23/17 20:00 02/26/17 23:20 Aztreonam 2000 mg/ Sodium Chloride 100 ml @ 200 mls/hr Q8H IV 02/24/17 06:00 02/27/17 04:50 (Lipitor) 40 mg HS PO 02/24/17 21:00 02/26/17 20:56 Levofloxacin/ Dextrose 100 ml @ 100 mls/hr Q48H IV 02/27/17 21:00 Sodium Chloride 1,000 ml @ 100 mls/hr Q10H IV 02/26/17 08:06 03/03/17 08:05 02/26/17 08:06 (Benadryl) 50 mg POPPED CORN OVEN ATTENDANT PO 02/26/17 08:15 03/02/17 08:14 (Valium) 10 mg POPPED CORN OVEN ATTENDANT PO 02/26/17 08:15 03/02/17 08:14 (Versed Inj) 1 mg POPPED CORN OVEN ATTENDANT IV PUSH 02/26/17 08:15 03/02/17 08:14 (Duoneb Neb) 1 ampule Q6HR NEB NEB 02/26/17 22:00 02/27/17 09:09 (SoluMEDROL INJ) 40 mg BID IV 02/26/17 21:00 02/27/17 08:14 (Flomax) 0.4 mg DAILY PO 02/27/17 09:00 Vital Signs / I&O Vital Signs Date Time Temp Pulse Resp B/P (MAP) Pulse Ox O2 Delivery O2 Flow Rate FiO2 02/27/17 09:17 96 40 02/27/17 08:00 98.0 77 18 129/65 (86) 97 02/27/17 08:00 78 02/27/17 06:00 78 02/27/17 04:29 94 40 02/27/17 04:00 83 02/27/17 04:00 98.0 83 26 146/76 (99) 97 02/27/17 02:00 84 02/27/17 00:28 98 40 02/27/17 00:00 86 02/27/17 00:00 98.3 86 27 128/78 (95) 99 02/26/17 22:00 89 02/26/17 21:42 98 BiPAP 45 02/26/17 21:39 98 45 02/26/17 20:00 98 02/26/17 20:00 98.5 98 25 132/66 (88) 97 02/26/17 18:00 102 02/26/17 16:00 98.2 65 20 130/75 (93) 95 02/26/17 16:00 102 02/26/17 15:48 99 45 02/26/17 14:00 102 02/26/17 12:00 102 02/26/17 12:00 98.2 114 18 146/80 (102) 95 02/26/17 11:58 96 45 02/26/17 10:00 102 I/O 02/26/17 02/26/17 02/26/17 02/27/17 02/27/17 02/27/17 07:00 15:00 23:00 07:00 15:00 23:00 Intake Total 1928 ml 220 ml 250 ml Output Total 900 ml 725 ml Balance 1928 ml -680 ml -475 ml Intake Oral 400 ml 120 ml IV Total 1528 ml 100 ml 250 ml Output Urine Total 900 ml 725 ml # Voids 3 # Bowel Movements 0 0 Physical Exam GENERAL: Well developed, well nourished. No acute distress. HEENT: Jugular venous pressure very difficult to assess. CHEST: Lungs clear to auscultation anteriorly. CARDIAC: Regular rate and rhythm without S3, S4, or murmur. ABDOMEN: Soft, nontender, no hepatosplenomegaly. Bowel sounds present. EXTREMITIES: No clubbing, cyanosis, or edema. Chronic venous stasis changes. Laboratory Laboratory Tests Test 02/26/17 11:35 02/26/17 11:50 02/26/17 16:26 02/26/17 21:09 Blood Gas Puncture Site LT RADIAL LT RADIAL Blood Gas Patient Temperature 98.6 98.6 Blood Gas HCO3 24 mmol/L 25 mmol/L Blood Gas Base Excess -1.6 mmol/L -0.7 mmol/L Blood Gas Oxygen Saturation 97 % 96 % Arterial Blood pH 7.28 7.32 Arterial Blood Partial Pressure CO2 54 mmHg 49 mmHg Arterial Blood Partial Pressure O2 191 mmHg 137 mmHg Arterial Blood Oxygen Content 17.1 Vol % 16.2 Vol % Arterial Blood Carboxyhemoglobin 0.8 % 0.9 % Arterial Blood Methemoglobin 1.1 % 1.5 % Blood Gas Hemoglobin 12.3 G/DL 11.8 G/DL Oxygen Delivery Device NONREBREATHER BIPAP 15IPAP/5EPAP Activated Partial Thromboplast Time 37.3 SEC 48.0 SEC Blood Gas Inspired Oxygen 45 % Test 02/27/17 05:45 02/27/17 09:09 White Blood Count 15.7 TH/MM3 Red Blood Count 4.02 MIL/MM3 Hemoglobin 11.6 GM/DL Hematocrit 35.1 % Mean Corpuscular Volume 87.3 FL Mean Corpuscular Hemoglobin 28.7 PG Mean Corpuscular Hemoglobin Concent 32.9 % Red Cell Distribution Width 14.4 % Platelet Count 97 TH/MM3 Mean Platelet Volume 10.3 FL Neutrophils (%) (Auto) 93.8 % Lymphocytes (%) (Auto) 3.8 % Monocytes (%) (Auto) 2.3 % Eosinophils (%) (Auto) 0.0 % Basophils (%) (Auto) 0.1 % Neutrophils # (Auto) 14.7 TH/MM3 Lymphocytes # (Auto) 0.6 TH/MM3 Monocytes # (Auto) 0.4 TH/MM3 Eosinophils # (Auto) 0.0 TH/MM3 Basophils # (Auto) 0.0 TH/MM3 CBC Comment AUTO DIFF Differential Comment AUTO DIFF CONFIRMED Platelet Estimate LOW Platelet Morphology Comment NORMAL Red Cell Morphology Comment NORMAL Activated Partial Thromboplast Time 52.1 SEC Blood Urea Nitrogen 52 MG/DL Creatinine 1.39 MG/DL Random Glucose 163 MG/DL Total Protein 6.8 GM/DL Albumin 1.7 GM/DL Calcium Level 9.0 MG/DL Alkaline Phosphatase 89 U/L Aspartate Amino Transf (AST/SGOT) 33 U/L Alanine Aminotransferase (ALT/SGPT) 40 U/L Total Bilirubin 0.6 MG/DL Sodium Level 145 MEQ/L Potassium Level 4.8 MEQ/L Chloride Level 113 MEQ/L Carbon Dioxide Level 25.9 MEQ/L Anion Gap 6 MEQ/L Estimat Glomerular Filtration Rate 50 ML/MIN Blood Gas Puncture Site RT RADIAL Blood Gas Patient Temperature 98.6 Blood Gas HCO3 25 mmol/L Blood Gas Base Excess -0.4 mmol/L Blood Gas Oxygen Saturation 96 % Arterial Blood pH 7.30 Arterial Blood Partial Pressure CO2 54 mmHg Arterial Blood Partial Pressure O2 124 mmHg Arterial Blood Oxygen Content 15.4 Vol % Arterial Blood Carboxyhemoglobin 0.8 % Arterial Blood Methemoglobin 1.2 % Blood Gas Hemoglobin 11.3 G/DL Oxygen Delivery Device BIPAP 5EPAP/15 IPAP Blood Gas Inspired Oxygen 40 % Imaging Last 24 hours Impressions Chest X-Ray 02/27/17 0600 Signed Impressions: Service Date/Time: Monday, February 27, 2017 04:56 - CONCLUSION: Mild right hemidiaphragm elevation. No significant interval change. Moise Carpenter MD Assessment and Plan Problem List: (1) Non-ST elevation [place] (NSTEMI) ICD Codes: I21.4 - Non-ST elevation (NSTEMI) myocardial infarction Status: Acute Plan: Stable overnight. No definite angina. EF unchanged from last year, ~45% . Renal indices and leukocytosis continue to improve. REC will delay cath; patient apparently felt not alert and oriented sufficiently to give consent continue beta kelsie, ASA, heparin, clopidogrel; no STEVAN-I for now with his renal insufficiency (2) Paroxysmal supraventricular tachycardia ICD Codes: I47.1 - Supraventricular tachycardia Status: Acute Plan: Initial admission EKG's suboptimal, possible SVT. Two brief salvoes of possibly atrial tachycardia, cannot rule out atrial fib, in past 24 hours. Continue beta kelsie, add Amiodarone. (3) Hypertension ICD Codes: I10 - Essential (primary) hypertension Status: Chronic Plan: Stable. Normotensive. Continue to monitor. (4) Ischemic cardiomyopathy ICD Codes: I25.5 - Ischemic cardiomyopathy Status: Chronic Plan: No major change in EF, 45%, by echo, compared to last year by cath. No definite CHF except tiny bilateral pleural effusions noted on abdominal CT. Rec continue current medical regimen. Code Status full code Discussed Condition With patient Problem Qualifiers (1) Hypertension: Qualified Codes: I10 - Essential (primary) hypertension Diallo Thompson MD Feb 27, 2017 09:36
[2017-02-27] MEDS: TAMSULOSIN HCL 0.4 MG CAP PO SCH (10:22)
[2017-02-27] MEDS: AMIODARONE 200 MG TAB PO SCH ×2 (10:22→19:35)
[2017-02-27 13:57] LABS: APTT (PATIENT) 43.1 SEC (24.3-30.1)
[2017-02-27 14:11] LABS: BLOOD GAS BASE EXCESS -0.3 mmol/L (-2-2); BLOOD GAS CARBOXYHEMOGLOBIN 0.8 % (0-4); BLOOD GAS HCO3 25 mmol/L (22-26); BLOOD GAS METHEMOGLOBIN 1.2 % (0-2); BLOOD GAS O2 HGB SATURATION 97 % (90-100); BLOOD GAS PCO2 51 mmHg (38-42); BLOOD GAS PO2 139 mmHg (61-120); BLOOD GAS TOTAL HGB 11.6 G/DL (12.0-16.0); CRITICAL VALUE YES; DRAW SITE RT RADIAL; FIO2 40 %; NUMBER OF ARTERIAL PUNCTURES 1; OXYGEN DEVICE BIPAP 18IPAP/5 EPAP; TEMP CORR TO 98.6
[2017-02-27 14:12] LABS: STAT YES; ULNAR PULSE PRESENT
--- NOTE | 2017-02-27 16:02 | HHI.IDPN ---
Subjective Subjective Remarks doing worse Now on BIPAP manriquez placed by urologist pt is afebrile WBC slightly down to 15 K Antibiotics azctam levaquin Allergies: Coded Allergies: azithromycin (Unverified Allergy, Severe, Swelling, 10/28/16) erythromycin base (Unverified Allergy, Severe, Swelling, 10/28/16) penicillin G (Unverified Allergy, Severe, Swelling, 10/28/16) Objective . Vital Signs Date Time Temp Pulse Resp B/P (MAP) Pulse Ox O2 Delivery O2 Flow Rate FiO2 02/27/17 12:00 78 02/27/17 12:00 98.2 77 18 128/76 (93) 97 02/27/17 10:00 78 02/27/17 09:17 96 40 02/27/17 08:00 98.0 77 18 129/65 (86) 97 02/27/17 08:00 78 02/27/17 06:00 78 02/27/17 04:29 94 40 02/27/17 04:00 83 02/27/17 04:00 98.0 83 26 146/76 (99) 97 02/27/17 02:00 84 02/27/17 00:28 98 40 02/27/17 00:00 86 02/27/17 00:00 98.3 86 27 128/78 (95) 99 02/26/17 22:00 89 02/26/17 21:42 98 BiPAP 45 02/26/17 21:39 98 45 02/26/17 20:00 98 02/26/17 20:00 98.5 98 25 132/66 (88) 97 02/26/17 18:00 102 02/26/17 16:00 98.2 65 20 130/75 (93) 95 02/26/17 16:00 102 . Laboratory Tests Test 02/26/17 03:30 02/27/17 05:45 White Blood Count 18.7 TH/MM3 15.7 TH/MM3 Red Blood Count 4.01 MIL/MM3 4.02 MIL/MM3 Hemoglobin 11.4 GM/DL 11.6 GM/DL Hematocrit 35.5 % 35.1 % Mean Corpuscular Volume 88.7 FL 87.3 FL Mean Corpuscular Hemoglobin 28.5 PG 28.7 PG Mean Corpuscular Hemoglobin Concent 32.2 % 32.9 % Red Cell Distribution Width 14.4 % 14.4 % Platelet Count 112 TH/MM3 97 TH/MM3 Mean Platelet Volume 9.9 FL 10.3 FL Neutrophils (%) (Auto) 93.7 % 93.8 % Lymphocytes (%) (Auto) 3.6 % 3.8 % Monocytes (%) (Auto) 2.6 % 2.3 % Eosinophils (%) (Auto) 0.0 % 0.0 % Basophils (%) (Auto) 0.1 % 0.1 % Neutrophils # (Auto) 17.6 TH/MM3 14.7 TH/MM3 Lymphocytes # (Auto) 0.7 TH/MM3 0.6 TH/MM3 Monocytes # (Auto) 0.5 TH/MM3 0.4 TH/MM3 Eosinophils # (Auto) 0.0 TH/MM3 0.0 TH/MM3 Basophils # (Auto) 0.0 TH/MM3 0.0 TH/MM3 CBC Comment DIFF FINAL AUTO DIFF Differential Comment AUTO DIFF CONFIRMED Platelet Estimate LOW Platelet Morphology Comment NORMAL Red Cell Morphology Comment NORMAL Laboratory Tests Test 02/26/17 03:30 02/27/17 05:45 Blood Urea Nitrogen 60 MG/DL 52 MG/DL Creatinine 1.54 MG/DL 1.39 MG/DL Random Glucose 126 MG/DL 163 MG/DL Total Protein 7.2 GM/DL 6.8 GM/DL Albumin 1.9 GM/DL 1.7 GM/DL Calcium Level 8.8 MG/DL 9.0 MG/DL Alkaline Phosphatase 94 U/L 89 U/L Aspartate Amino Transf (AST/SGOT) 41 U/L 33 U/L Alanine Aminotransferase (ALT/SGPT) 40 U/L 40 U/L Total Bilirubin 0.6 MG/DL 0.6 MG/DL Sodium Level 141 MEQ/L 145 MEQ/L Potassium Level 4.7 MEQ/L 4.8 MEQ/L Chloride Level 111 MEQ/L 113 MEQ/L Carbon Dioxide Level 25.7 MEQ/L 25.9 MEQ/L Anion Gap 4 MEQ/L 6 MEQ/L Estimat Glomerular Filtration Rate 45 ML/MIN 50 ML/MIN Microbiology Date/Time Source Procedure Growth Status 02/24/17 16:31 Blood Peripheral Aerobic Blood Culture - Preliminary NO GROWTH IN 3 DAYS Resulted 02/24/17 16:31 Blood Peripheral Anaerobic Blood Culture - Preliminary NO GROWTH IN 3 DAYS Resulted 02/24/17 16:24 Blood Peripheral Aerobic Blood Culture - Preliminary NO GROWTH IN 3 DAYS Resulted 02/24/17 16:24 Blood Peripheral Anaerobic Blood Culture - Preliminary NO GROWTH IN 3 DAYS Resulted 02/24/17 23:30 Urine Catheterized Urine Urine Culture - Final NO GROWTH IN 48 HOURS. Complete Imaging Last Impressions Chest X-Ray 02/27/17 0600 Signed Impressions: Service Date/Time: Monday, February 27, 2017 04:56 - CONCLUSION: Mild right hemidiaphragm elevation. No significant interval change. Moise Carpenter MD Abdomen/Pelvis CT 02/25/17 0000 Signed Impressions: Service Date/Time: Saturday, February 25, 2017 12:11 - CONCLUSION: 1. Posterior bibasilar patchiness consistent with atelectasis and/or mild infiltrates. 2. Tiny bilateral pleural effusions. 3. Uncomplicated colonic diverticulosis. 4. Markedly enlarged prostate gland. 5. Small midline ventral abdominal wall hernia containing only fat. 6. Bilobed infrarenal abdominal aortic aneurysm which measures 3.4 cm in greatest dimension. 7. Degenerative changes and scoliosis of the thoraco-lumbar spine. Vinnie Montemayor MD Hip and Pelvis X-Ray 02/23/17 0000 Signed Impressions: Service Date/Time: Thursday, February 23, 2017 18:25 - CONCLUSION: 1. Suboptimal exam due to patient size. No displaced fracture or dislocation identified. Helder Hernandez MD Physical Exam CONSTITUTIONAL/GENERAL: This is an obese elderly patient, in no apparent distress. TUBES/LINES/DRAINS: SKIN: No jaundice, rashes, or lesions. Skin temperature appropriate. Not diaphoretic. CARDIOVASCULAR: Regular rate and rhythm without murmurs, gallops, or rubs. No JVD. Peripheral pulses symmetric. RESPIRATORY/CHEST: Symmetric, unlabored respirations. Clear to auscultation. Breath sounds equal bilaterally. No wheezes, rales, or rhonchi. GASTROINTESTINAL: Abdomen soft, non-tender, nondistended. No hepato-splenomegaly , or palpable masses. No guarding. Bowel sounds present. GENITOURINARY: Without palpable bladder distension. manriquez catheter in place. with small amount of clear yellow urine MUSCULOSKELETAL: Extremities without clubbing, cyanosis, + 2 edema, chronic skin changes, pachydermosis . No joint tenderness or effusion noted. No calf tenderness. No mottling or clubbing. LYMPHATICS: No palpable cervical or supraclavicular adenopathy. NEUROLOGICAL calm; awake alert, communicating PSYCHIATRIC: calm Assessment & Plan Remarks Assessment and Plan High grade Morganella, cw urinary pathogen UA with prominent pyuria Sepsis, sever likley - negative UC 2/2 previous abx use Acute urinary retention, 2/2 markedly enlarged prostate sp NSTEMI PCN allergy, immediate type (swelling) leukocytosis; improving Respiratory distress, on BIPAP - dc azactam - cont levaquine fu sensitivities - manriquez placement for retention by urologist Discussed Condition With RN Hilary Washington MD Feb 27, 2017 16:02
[2017-02-27] MEDS: HEPARIN-D5W 25,000 U/250 ML 250 ML IV PRN (18:25)
[2017-02-27] MEDS: LEVOFLOXACIN 500 MG PREMIX INJ 100 ML IV SCH (19:34)
[2017-02-27] MEDS: ATORVASTATIN 10 MG TAB PO SCH (19:35)
[2017-02-27] MEDS: ATORVASTATIN 40 MG TAB PO SCH (19:35)
--- NOTE | 2017-02-27 20:50 | HHI.PR ---
Subjective Remarks On Bipap and FIo2 at 40 %. Will go for Cardiac Cath if stable. No fever. On antibiotics per ID . Has UTI Objective Vital Signs Date Time Temp Pulse Resp B/P (MAP) Pulse Ox O2 Delivery O2 Flow Rate FiO2 02/27/17 20:00 80 02/27/17 20:00 98.5 80 16 145/87 (106) 97 02/27/17 18:00 78 02/27/17 16:00 98.1 79 15 126/72 (90) 93 02/27/17 16:00 78 02/27/17 14:00 78 02/27/17 12:00 78 02/27/17 12:00 98.2 77 18 128/76 (93) 97 02/27/17 10:00 78 02/27/17 09:17 96 40 02/27/17 08:00 98.0 77 18 129/65 (86) 97 02/27/17 08:00 78 02/27/17 06:00 78 02/27/17 04:29 94 40 02/27/17 04:00 83 02/27/17 04:00 98.0 83 26 146/76 (99) 97 02/27/17 02:00 84 02/27/17 00:28 98 40 02/27/17 00:00 86 02/27/17 00:00 98.3 86 27 128/78 (95) 99 02/26/17 22:00 89 02/26/17 21:42 98 BiPAP 45 02/26/17 21:39 98 45 I/O 02/26/17 02/26/17 02/26/17 02/27/17 02/27/17 02/27/17 07:00 15:00 23:00 07:00 15:00 23:00 Intake Total 1928 ml 220 ml 250 ml 949 ml Output Total 900 ml 725 ml 800 ml Balance 1928 ml -680 ml -475 ml 149 ml Intake Oral 400 ml 120 ml IV Total 1528 ml 100 ml 250 ml 949 ml Output Urine Total 900 ml 725 ml 800 ml # Voids 3 # Bowel Movements 0 0 Result Diagram: 02/27/17 0545 02/27/17 0545 Objective Remarks PHYSICAL EXAMINATION GENERAL: This is an obese, elderly white male who is on BiPap. He is stable. There is mild peripheral cyanosis. HEENT: Head normocephalic. Pupils reactive. Tongue moist. Throat is clear. Nasal mucosae edematous. NECK: Supple. No bruits or thyroid enlargement. CHEST: Equal movements with expiratory wheezes throughout both lung hancock. No crackles. CARDIOVASCULAR: Heart sounds are Irregular. S1-S2. No murmur. ABDOMEN: Soft , benign. No mass. No organomegaly. EXTREMITIES: 2 + edema and Induration of skin. NEUROLOGIC: Reflexes 1+ with no gross motor deficits. . Assessment and Plan Assessment and Plan IMPRESSION 1. Chronic bronchitis.COPD 2. History of hypertension. 3. Acute respiratory failure 4. NSTEMI. 5. H/O Coronary Artery disease. 6. Sepsis/ UTI/Pneumonia 7. Chronic Lymphedema Plan : 1. wean BiPAP to ventimask during the day to 40 % FIo2. 2. Continue Nebs qid , duoneb. 3. Cont Levaquin IV 4. CXR ,BMP in am. 5. Cardiac Cath today. 6. Add Symbicort 160/4.5 mcg , 2 puffs bid. 7. PFT when stable. 8. Continue anticoagulants Tosha Hightower MD Feb 27, 2017 20:50
[2017-02-27] MEDS ORDERED: LEVOFLOXACIN 500 MG PREMIX INJ 100 ML IV SCH (21:00)
[2017-02-28] VITALS (22 sets, daily range): BP systolic 139–158; BP diastolic 59–90; PULSE 72–95; RESP 11–33; TEMP 97.7–98.6; O2SAT 96–100
[2017-02-28] MEDS: RESP: ALBUTEROL 2.5 MG/IPRATROPIUM 0.5 MG NEB (SCH) NEB ×4 (02:53→21:31)
[2017-02-28] MEDS: CHLORHEXIDINE GLUCONATE 2 % 1 PACK (2 CLOTHS) TOP SCH (04:00)
[2017-02-28] MEDS: DOCUSATE SODIUM 50 MG/SENNA 8.6 MG TAB PO SCH ×2 (08:29→21:01)
[2017-02-28] MEDS: CARVEDILOL 3.125 MG TAB PO SCH (08:29)
[2017-02-28] MEDS: AMIODARONE 200 MG TAB PO SCH ×2 (08:29→21:01)
[2017-02-28] MEDS: TAMSULOSIN HCL 0.4 MG CAP PO SCH (08:30)
[2017-02-28] MEDS: CLOPIDOGREL 75 MG TAB PO SCH (08:30)
[2017-02-28] MEDS: ASPIRIN EC 325 MG TABEC PO SCH (08:30)
[2017-02-28] MEDS: methylPREDNISolone SOD SUCC 40 MG/1 ML VIAL IV SCH ×2 (08:30→21:01)
[2017-02-28] MEDS: FAMOTIDINE 20 MG/2 ML VIAL IV PUSH SCH (08:31)
[2017-02-28] MEDS: SODIUM CHLORIDE 0.9% FLUSH 10 ML FLUSH IV FLUSH SCH ×2 (08:32→21:05)
[2017-02-28] MEDS ORDERED: SODIUM CHLOR 0.9% 1000 ML INJ 1,000 ML IV SCH (09:40)
--- NOTE | 2017-02-28 09:40 | PD.CARD.PN ---
Subjective Subjective Remarks Denies dyspnea, CP, dizziness, palpitations, PND. Slept well. Objective Medications Item Value Date Time Amiodarone HCl 400 mg 02/27/17 0945 (Cordarone) Q12HR/PO 02/28/17 08 Atorvastatin 40 mg 02/24/17 2100 Calcium HS/PO 02/27/171934 (Lipitor) Clopidogrel 75 mg 02/24/17 0900 Bisulfate DAILY/PO 02/28/17 0830 (Plavix) Aspirin 325 mg 02/24/17 0900 (Ecotrin Ec) DAILY/PO 02/28/17 0830 Heparin Sodium/ 250 ml @ 10 mls/hr 02/23/17 2000 Dextrose TITRATE PRN/IV 02/27/17 182 Carvedilol 3.125 mg 02/23/172099 (Coreg) BID/PO 02/28/17 08 Atorvastatin 10 mg 02/23/17 2100 Calcium HS/PO 02/27/171934 (Lipitor) Current Medications Medications (Trade) Dose Ordered Sig/Alexandro Route Start Time Stop Time Status Last Admin (Lipitor) 10 mg HS PO 02/23/17 21:00 02/27/17 19:35 (Coreg) 3.125 mg BID PO 02/23/17 21:00 02/28/17 08:29 (Plavix) 75 mg DAILY PO 02/24/17 09:00 02/28/17 08:30 (Nitrostat Sl) 0.4 mg Q5M PRN SL 02/23/17 19:45 (Percocet 5-325 Mg) 1 tab Q6H PRN PO 02/23/17 19:45 Future Hold Sodium Chloride 1,000 ml @ 84 mls/hr [id number] IV 02/23/17 19:42 02/26/17 05:29 (NS Flush) 2 ml UNSCH PRN IV FLUSH 02/23/17 19:45 (NS Flush) 2 ml BID IV FLUSH 02/23/17 21:00 02/28/17 08:32 (Tylenol) 650 mg Q6H PRN PO 02/23/17 19:45 (Morphine Inj) 2 mg Q2H PRN IV PUSH 02/23/17 19:45 (Pepcid Inj) 20 mg DAILY IV PUSH 02/23/17 21:00 02/28/17 08:31 (Ativan Inj) 1 mg Q1H PRN IV PUSH 02/23/17 19:45 (Zofran Inj) 4 mg Q6H PRN IV PUSH 02/23/17 19:45 (Ambien) 5 mg HS PRN PO 02/23/17 19:45 (Duoneb Neb) 1 ampule Q2HR NEB PRN INH 02/23/17 19:45 Miscellaneous Information 1 Q361D XX 02/23/17 19:45 (Chlorhexidine 2% Cloth) 3 pack Taper DAILY@04 TOP 02/24/17 04:00 02/20/18 03:59 02/26/17 03:59 (Chlorhexidine 2% Cloth) 3 pack UNSCH PRN TOP 02/23/17 19:45 (Roxanne-Colace) 1 tab BID PO 02/23/17 21:00 02/28/17 08:29 (Milk Of Magnesia Liq) 30 ml Q12H PRN PO 02/23/17 19:45 (Senokot) 17.2 mg Q12H PRN PO 02/23/17 19:45 (Dulcolax Supp) 10 mg DAILY PRN RECTAL 02/23/17 19:45 (Lactulose Liq) 30 ml DAILY PRN PO 02/23/17 19:45 (Ecotrin Ec) 325 mg DAILY PO 02/24/17 09:00 02/28/17 08:30 (Heparin Inj) 5,000 units UNSCH PRN IV PUSH 02/24/17 02:00 (Heparin Inj) 2,500 units UNSCH PRN IV PUSH 02/24/17 02:00 Heparin Sodium/ Dextrose 250 ml @ 10 mls/hr TITRATE PRN IV 02/23/17 20:00 02/27/17 18:25 (Lipitor) 40 mg HS PO 02/24/17 21:00 02/27/17 19:35 Sodium Chloride 1,000 ml @ 100 mls/hr Q10H IV 02/26/17 08:06 03/03/17 08:05 02/26/17 08:06 (Benadryl) 50 mg MOLD CLOSER HELPER PO 02/26/17 08:15 03/02/17 08:14 (Valium) 10 mg MOLD CLOSER HELPER PO 02/26/17 08:15 03/02/17 08:14 (Versed Inj) 1 mg MOLD CLOSER HELPER IV PUSH 02/26/17 08:15 03/02/17 08:14 (Duoneb Neb) 1 ampule Q6HR NEB NEB 02/26/17 22:00 02/28/17 07:58 (SoluMEDROL INJ) 40 mg BID IV 02/26/17 21:00 02/28/17 08:30 (Flomax) 0.4 mg DAILY PO 02/27/17 09:00 02/28/17 08:30 (Cordarone) 400 mg Q12HR PO 02/27/17 09:45 02/28/17 08:29 Levofloxacin/ Dextrose 100 ml @ 100 mls/hr Q24H IV 02/27/17 21:00 02/27/17 19:34 Vital Signs / I&O Vital Signs Date Time Temp Pulse Resp B/P (MAP) Pulse Ox O2 Delivery O2 Flow Rate FiO2 02/28/17 07:59 100 40 02/28/17 06:00 72 02/28/17 04:07 98 40 02/28/17 04:00 72 02/28/17 04:00 98.5 72 11 144/81 (102) 97 02/28/17 02:00 74 02/28/17 00:00 98.1 74 18 139/82 (101) 97 02/28/17 00:00 74 02/27/17 23:48 96 40 02/27/17 22:00 76 02/27/17 20:44 98 40 02/27/17 20:00 80 02/27/17 20:00 98.5 80 16 145/87 (106) 97 02/27/17 18:00 78 02/27/17 16:00 98.1 79 15 126/72 (90) 93 02/27/17 16:00 78 02/27/17 14:00 78 02/27/17 12:00 78 02/27/17 12:00 98.2 77 18 128/76 (93) 97 02/27/17 10:00 78 I/O 02/27/17 02/27/17 02/27/17 02/28/17 02/28/17 02/28/17 07:00 15:00 23:00 07:00 15:00 23:00 Intake Total 250 ml 949 ml 160 ml Output Total 725 ml 800 ml 600 ml Balance -475 ml 149 ml -440 ml Intake Oral 60 ml IV Total 250 ml 949 ml 100 ml Output Urine Total 725 ml 800 ml 600 ml # Bowel Movements 0 0 Physical Exam GENERAL: Well developed, well nourished. No acute distress. HEENT: Jugular venous pressure very difficult to assess. CHEST: Lungs clear to auscultation anteriorly. CARDIAC: Regular rate and rhythm without S3, S4, or murmur. ABDOMEN: Soft, nontender, no hepatosplenomegaly. Bowel sounds present. EXTREMITIES: No clubbing, cyanosis, or edema. Chronic venous stasis changes. Laboratory Laboratory Tests Test 02/27/17 13:40 02/27/17 14:00 02/28/17 09:00 Activated Partial Thromboplast Time 43.1 SEC Blood Gas Puncture Site RT RADIAL Blood Gas Patient Temperature 98.6 Blood Gas HCO3 25 mmol/L Blood Gas Base Excess -0.3 mmol/L Blood Gas Oxygen Saturation 97 % Arterial Blood pH 7.32 Arterial Blood Partial Pressure CO2 51 mmHg Arterial Blood Partial Pressure O2 139 mmHg Arterial Blood Oxygen Content 16.0 Vol % Arterial Blood Carboxyhemoglobin 0.8 % Arterial Blood Methemoglobin 1.2 % Blood Gas Hemoglobin 11.6 G/DL Oxygen Delivery Device BIPAP 18IPAP/5 EPAP Blood Gas Inspired Oxygen 40 % Assessment and Plan Problem List: (1) Non-ST elevation [place] (NSTEMI) ICD Codes: I21.4 - Non-ST elevation (NSTEMI) myocardial infarction Status: Acute Plan: Stable overnight. No definite angina. EF unchanged from last year, ~45% . REC cath Thursday 7:30 am continue beta kelsie, ASA, heparin, clopidogrel; no STEVAN-I for now with his renal insufficiency (2) Paroxysmal supraventricular tachycardia ICD Codes: I47.1 - Supraventricular tachycardia Status: Acute Plan: Initial admission EKG's suboptimal, possible SVT. Stable overnight. No further atrial tachycardia (cannot rule out atrial fib). Continue beta kelsie, increase dose, continue oral Amiodarone. (3) Hypertension ICD Codes: I10 - Essential (primary) hypertension Status: Chronic Plan: Stable. Normotensive. Continue to monitor. (4) Ischemic cardiomyopathy ICD Codes: I25.5 - Ischemic cardiomyopathy Status: Chronic Plan: No major change in EF, 45%, by echo, compared to last year by cath. No definite CHF except tiny bilateral pleural effusions noted on abdominal CT. Rec continue current medical regimen. Code Status full code Discussed Condition With patient Problem Qualifiers (1) Hypertension: Qualified Codes: I10 - Essential (primary) hypertension Diallo Thompson MD Feb 28, 2017 09:40
[2017-02-28 09:41] LABS: APTT (PATIENT) 41.3 SEC (24.3-30.1)
[2017-02-28] MEDS ORDERED: diphenhydrAMINE HCL 50 MG CAP PO SCH (09:45)
[2017-02-28] MEDS ORDERED: MIDAZOLAM HCL 2 MG/2 ML VIAL IV PUSH SCH (09:45)
[2017-02-28] MEDS ORDERED: DIAZEPAM 10 MG TAB PO SCH (09:45)
[2017-02-28 09:53] LABS: BICARBONATE 27.2 MEQ/L (21.0-32.0); MAGNESIUM 2.6 MG/DL (1.5-2.5); POTASSIUM 4.6 MEQ/L (3.5-5.1)
[2017-02-28 10:05] LABS: AUTOMATED NEUTROPHIL # 19.7 TH/MM3 (1.8-7.7); BASOPHIL # 0.1 TH/MM3 (0-0.2); BASOPHIL % 0.3 % (0.0-2.0); HEMATOCRIT 37.5 % (39.0-51.0); LYMPH % 4.7 % (9.0-44.0); MEAN CELL VOLUME 87.7 FL (80.0-100.0); MEAN CORPUSCULAR HEMOGLOBIN 27.9 PG (27.0-34.0); MEAN CORPUSCULAR HGB CONC 31.8 % (32.0-36.0); MONO % 3.5 % (0.0-8.0); NEUT % 91.5 % (16.0-70.0); PLATELET COUNT 94 TH/MM3 (150-450); RED BLOOD COUNT 4.28 MIL/MM3 (4.50-5.90); RED CELL DISTRIBUTION WIDTH 14.9 % (11.6-17.2); WHITE BLOOD COUNT 21.5 TH/MM3 (4.0-11.0)
[2017-02-28 10:06] LABS: HEMO FLAGS AUTO DIFF
--- NOTE | 2017-02-28 10:12 | HHI.IDPN ---
Subjective Subjective Remarks pt improved: off BIPAP and now on sp NSTEMI cath planned on Thursday no fever WBC down to 15 K Antibiotics levaquin Allergies: Coded Allergies: azithromycin (Unverified Allergy, Severe, Swelling, 10/28/16) erythromycin base (Unverified Allergy, Severe, Swelling, 10/28/16) penicillin G (Unverified Allergy, Severe, Swelling, 10/28/16) Objective . Vital Signs Date Time Temp Pulse Resp B/P (MAP) Pulse Ox O2 Delivery O2 Flow Rate FiO2 02/28/17 07:59 100 40 02/28/17 06:00 72 02/28/17 04:07 98 40 02/28/17 04:00 72 02/28/17 04:00 98.5 72 11 144/81 (102) 97 02/28/17 02:00 74 02/28/17 00:00 98.1 74 18 139/82 (101) 97 02/28/17 00:00 74 02/27/17 23:48 96 40 02/27/17 22:00 76 02/27/17 20:44 98 40 02/27/17 20:00 80 02/27/17 20:00 98.5 80 16 145/87 (106) 97 02/27/17 18:00 78 02/27/17 16:00 98.1 79 15 126/72 (90) 93 02/27/17 16:00 78 02/27/17 14:00 78 02/27/17 12:00 78 02/27/17 12:00 98.2 77 18 128/76 (93) 97 02/27/17 10:00 78 . Laboratory Tests Test 02/27/17 05:45 02/28/17 09:00 White Blood Count 15.7 TH/MM3 Red Blood Count 4.02 MIL/MM3 Hemoglobin 11.6 GM/DL Hematocrit 35.1 % Mean Corpuscular Volume 87.3 FL Mean Corpuscular Hemoglobin 28.7 PG Mean Corpuscular Hemoglobin Concent 32.9 % Red Cell Distribution Width 14.4 % Platelet Count 97 TH/MM3 Mean Platelet Volume 10.3 FL Neutrophils (%) (Auto) 93.8 % Lymphocytes (%) (Auto) 3.8 % Monocytes (%) (Auto) 2.3 % Eosinophils (%) (Auto) 0.0 % Basophils (%) (Auto) 0.1 % Neutrophils # (Auto) 14.7 TH/MM3 Lymphocytes # (Auto) 0.6 TH/MM3 Monocytes # (Auto) 0.4 TH/MM3 Eosinophils # (Auto) 0.0 TH/MM3 Basophils # (Auto) 0.0 TH/MM3 CBC Comment AUTO DIFF Differential Comment AUTO DIFF CONFIRMED Platelet Estimate LOW Platelet Morphology Comment NORMAL Red Cell Morphology Comment NORMAL Laboratory Tests Test 02/27/17 05:45 02/28/17 09:00 Blood Urea Nitrogen 52 MG/DL Creatinine 1.39 MG/DL Random Glucose 163 MG/DL Total Protein 6.8 GM/DL Albumin 1.7 GM/DL Calcium Level 9.0 MG/DL Alkaline Phosphatase 89 U/L Aspartate Amino Transf (AST/SGOT) 33 U/L Alanine Aminotransferase (ALT/SGPT) 40 U/L Total Bilirubin 0.6 MG/DL Sodium Level 145 MEQ/L Potassium Level 4.8 MEQ/L Chloride Level 113 MEQ/L Carbon Dioxide Level 25.9 MEQ/L Anion Gap 6 MEQ/L Estimat Glomerular Filtration Rate 50 ML/MIN Imaging Last Impressions Chest X-Ray 02/27/17 0600 Signed Impressions: Service Date/Time: Monday, February 27, 2017 04:56 - CONCLUSION: Mild right hemidiaphragm elevation. No significant interval change. Moise Carpenter MD Abdomen/Pelvis CT 02/25/17 0000 Signed Impressions: Service Date/Time: Saturday, February 25, 2017 12:11 - CONCLUSION: 1. Posterior bibasilar patchiness consistent with atelectasis and/or mild infiltrates. 2. Tiny bilateral pleural effusions. 3. Uncomplicated colonic diverticulosis. 4. Markedly enlarged prostate gland. 5. Small midline ventral abdominal wall hernia containing only fat. 6. Bilobed infrarenal abdominal aortic aneurysm which measures 3.4 cm in greatest dimension. 7. Degenerative changes and scoliosis of the thoraco-lumbar spine. Vinnie Montemayor MD Hip and Pelvis X-Ray 02/23/17 0000 Signed Impressions: Service Date/Time: Thursday, February 23, 2017 18:25 - CONCLUSION: 1. Suboptimal exam due to patient size. No displaced fracture or dislocation identified. Helder Hernandez MD Physical Exam CONSTITUTIONAL/GENERAL: This is an obese elderly patient, in no apparent distress. On part NRB TUBES/LINES/DRAINS: SKIN: No jaundice, rashes, or lesions. Skin temperature appropriate. Not diaphoretic. CARDIOVASCULAR: Regular rate and rhythm without murmurs, gallops, or rubs. No JVD. Peripheral pulses symmetric. RESPIRATORY/CHEST: Symmetric, unlabored respirations. Clear to auscultation. Breath sounds equal bilaterally. No wheezes, rales, or rhonchi. GASTROINTESTINAL: Abdomen soft, non-tender, nondistended. No hepato-splenomegaly , or palpable masses. No guarding. Bowel sounds present. GENITOURINARY: Without palpable bladder distension. manriquez catheter in place. with small amount of clear yellow urine MUSCULOSKELETAL: Extremities without clubbing, cyanosis, + 2 edema, chronic skin changes, pachydermosis . No joint tenderness or effusion noted. No calf tenderness. No mottling or clubbing. LYMPHATICS: No palpable cervical or supraclavicular adenopathy. NEUROLOGICAL calm; awake alert, communicating PSYCHIATRIC: calm Assessment & Plan Remarks Assessment and Plan High grade Morganella, cw UTI in the settings of acute urinary retention 2/2 prostatic enlargement UA with prominent pyuria Sepsis, sever likley - negative UC 2/2 previous abx use Acute urinary retention, 2/2 markedly enlarged prostate - sp foleyn placement sp NSTEMI PCN allergy, immediate type (swelling) leukocytosis; improving Respiratory distress, on NRB - cont levaquine x 2 weeks total; can be switched to po - monitor clinically Discussed Condition With Hilary Márquez MD Feb 28, 2017 10:12
[2017-02-28] MEDS: SODIUM CHLOR 0.9% 1000 ML INJ 1,000 ML IV SCH (10:30)
[2017-02-28 10:45] LABS: OVALOCYTES 1+ (NORMAL)
[2017-02-28 10:46] LABS: PLATELET ESTIMATE SMEAR LOW (NORMAL); PLATELET MORPHOLOGY NORMAL (NORMAL); SCAN/DIFF AUTO DIFF CONFIRMED
--- NOTE | 2017-02-28 13:29 | HHI.CCPN ---
Subjective Remarks/Hospital Course 72-year-old pleasant gentleman with past medical history of of CVA, HTN coronary artery disease status post stent placement to his mid LAD by Dr. Washington in May 2015 presents with complaints of shortness of breath that progressively worsening over last few weeks. Patient says he also slipped and fell on right hip today and could not get up for 12 hours. Denies any head trauma. He has a chronic venostatic lower extremity wounds for about last 4 months. Denies any chest pain, nausea or vomiting, abdominal pain, focal weakness or numbness. 02/24 Patient is lying in bed in NAD. Afebrile.On Heparin drip. 02/25 Patient is lying in bed in NAD. On Heparin drip. BC 02/23: GNR 02/26 No events overnight. On Heparin drip. Afebrile. WBC is trending down. 02/27 No events overnight. Remains on BIPAP 02/17 with 40% FIO2. Afebrile. On Heparin drip. For possible cardiac cath today. 02/28: stable. nc down to 6L. subjectively feels better with less SOB. denies chest pain. ROS negative. tolerating diet. plan for LHC on thursday per cardiology. Objective Vital Signs Date Time Temp Pulse Resp B/P (MAP) Pulse Ox O2 Delivery O2 Flow Rate FiO2 02/28/17 11:06 99 Nasal Cannula 6.00 02/28/17 08:00 98.6 76 13 158/90 (112) 02/28/17 07:59 40 Intake and Output 02/28/17 02/28/17 03/01/17 08:00 16:00 00:00 Intake Total 60 ml Output Total 600 ml Balance -540 ml Result Diagram: 02/28/17 0900 02/28/17 0900 Other Results Laboratory Tests Test 02/27/17 14:00 Blood Gas Puncture Site RT RADIAL Blood Gas Patient Temperature 98.6 Blood Gas HCO3 25 mmol/L (22-26) Blood Gas Base Excess -0.3 mmol/L (-2-2) Blood Gas Oxygen Saturation 97 % (90-100) Arterial Blood pH 7.32 (7.380-7.420) Arterial Blood Partial Pressure CO2 51 mmHg (38-42) Arterial Blood Partial Pressure O2 139 mmHg (61-120) Arterial Blood Oxygen Content 16.0 Vol % (12.0-20.0) Arterial Blood Carboxyhemoglobin 0.8 % (0-4) Arterial Blood Methemoglobin 1.2 % (0-2) Blood Gas Hemoglobin 11.6 G/DL (12.0-16.0) Oxygen Delivery Device BIPAP 18IPAP/5 EPAP Blood Gas Inspired Oxygen 40 % Imaging Last Impressions Chest X-Ray 02/27/17 0600 Signed Impressions: Service Date/Time: Monday, February 27, 2017 04:56 - CONCLUSION: Mild right hemidiaphragm elevation. No significant interval change. Moise Carpenter MD Abdomen/Pelvis CT 02/25/17 0000 Signed Impressions: Service Date/Time: Saturday, February 25, 2017 12:11 - CONCLUSION: 1. Posterior bibasilar patchiness consistent with atelectasis and/or mild infiltrates. 2. Tiny bilateral pleural effusions. 3. Uncomplicated colonic diverticulosis. 4. Markedly enlarged prostate gland. 5. Small midline ventral abdominal wall hernia containing only fat. 6. Bilobed infrarenal abdominal aortic aneurysm which measures 3.4 cm in greatest dimension. 7. Degenerative changes and scoliosis of the thoraco-lumbar spine. Vinnie Montemayor MD Hip and Pelvis X-Ray 02/23/17 0000 Signed Impressions: Service Date/Time: Thursday, February 23, 2017 18:25 - CONCLUSION: 1. Suboptimal exam due to patient size. No displaced fracture or dislocation identified. Helder Hernandez MD Objective Remarks GENERAL: 72 years old morbidly obese male, on nc o2. SKIN: Focused skin assessment warm/dry. HEAD: Atraumatic. Normocephalic. EYES: Pupils equal and round. No scleral icterus. No injection or drainage. ENT: Mucous membranes pink and moist. NECK: Trachea midline. large neck circumference prevents accurate assessment of jvd. CARDIOVASCULAR: normal rate, regular rhythm. RESPIRATORY: unlabored. nc o2. equal chest rise. GASTROINTESTINAL: Abdomen soft, non-tender, nondistended. . MUSCULOSKELETAL:Bilateral lower extremity edema, nixon scaling rash. Chronic venous stasis NEUROLOGICAL: Awake and alert. No obvious cranial nerve deficits. Motor grossly within normal limits. Normal speech. A/P Assessment and Plan Assessment: 72yM with NSTEMI and Sepsis secondary to urinary tract infection, multi-organ failure which is resolving. stable for transfer to step-down unit. continue amiodarone and heparin drip. still needs coronary evaluation during this hospital stay. Non-STEMI Resp Insuff - resolving. Leukocytosis - improving. Gram negative bacteremia- Likely source UTI GUALBERTO..improving Obstructive uropathy- s/p manriquez placement, improving. Rhabdo Mild lactic acidemia Hypertension Chronic venous stasis Plan Neuro: Awake and alert Pulm: Continue with oxygen keep sat >92% Bronchodilators, wean nc as tolerated. CV: Monitor HR and BP keep MAP>65mmHg Continue ASA, Lipitor, Coreg, Plavix. On Heparin drip- monitor PTT. Echo showed EF 45% continue amiodarone. Cards is following- Dr. Thompson,cardiac cath held today due to resp status. : Monitor renal function, I/O's, avoid nephrotoxins d/c mivf. lasix 20mg iv x 1. CT abdomen/pelvis: colonic diverticulosis. Markedly enlarged prostate gland.. Small midline ventral abdominal wall hernia containing only fat. Bilobed infrarenal abdominal aortic aneurysm which measures 3.4 cm in greatest dimension. Flomax 0.4mg QD. Urology is following- Dr. Arroyo GI: On PO diet ID: Continue with abx ( Aztreonam, Levaquin) monitor for signs of infections ( Fever, WBC) WBC is trending down ID is following BC from 02/23: Eloise Brunner, follow up on urine cx- NGTD, sputum cx : normal resp susu. 02/24: NGTD Wound service is following for Chronic venous stasis Heme: Monitor CBC, coags- on Heparin drip Endo: SSI for glycemic control GI prophylaxis- on Pepcid DVT prophylaxis- On Heparin drip Dispo: transfer to step-down unit. consult hospitalist services to continue to follow. Ernesto Beltran MD Feb 28, 2017 13:29
[2017-02-28] MEDS ORDERED: FUROSEMIDE 20 MG/2 ML VIAL IV PUSH ONE (13:30)
[2017-02-28] MEDS: HEPARIN-D5W 25,000 U/250 ML 250 ML IV PRN (15:22)
[2017-02-28] MEDS: LEVOFLOXACIN 500 MG PREMIX INJ 100 ML IV SCH (21:01)
[2017-02-28] MEDS: ATORVASTATIN 40 MG TAB PO SCH (21:02)
[2017-02-28] MEDS: CARVEDILOL 6.25 MG TAB PO SCH (21:05)
[2017-03-01] VITALS (30 sets, daily range): BP systolic 138–159; BP diastolic 66–86; PULSE 63–92; RESP 16–18; TEMP 97.4–98.4; O2SAT 95–99
[2017-03-01] MEDS: CHLORHEXIDINE GLUCONATE 2 % 1 PACK (2 CLOTHS) TOP SCH (04:00)
[2017-03-01] MEDS: RESP: ALBUTEROL 2.5 MG/IPRATROPIUM 0.5 MG NEB (SCH) NEB ×4 (05:57→22:39)
[2017-03-01 06:06] LABS: MEAN CELL VOLUME 88.3 FL (80.0-100.0); MEAN CORPUSCULAR HEMOGLOBIN 28.7 PG (27.0-34.0); MEAN CORPUSCULAR HGB CONC 32.5 % (32.0-36.0); PLATELET COUNT 121 TH/MM3 (150-450); RED BLOOD COUNT 4.19 MIL/MM3 (4.50-5.90); RED CELL DISTRIBUTION WIDTH 14.6 % (11.6-17.2); REVIEW FLAG FINAL; WHITE BLOOD COUNT 26.8 TH/MM3 (4.0-11.0)
[2017-03-01 06:10] LABS: APTT (PATIENT) 47.6 SEC (24.3-30.1)
--- NOTE | 2017-03-01 08:54 | HHI.PR ---
Subjective Remarks Follow-up Non-ST elevation AL/respiratory failure 03/01/17-patient seen and examined, reports some shortness of breath however denies any chest pain. Currently on heparin drip Objective Vitals Vital Signs Date Time Temp Pulse Resp B/P (MAP) Pulse Ox O2 Delivery O2 Flow Rate FiO2 03/01/17 07:00 77 03/01/17 06:00 72 03/01/17 05:58 98 Nasal Cannula 5.00 03/01/17 05:00 70 03/01/17 04:00 82 03/01/17 04:00 98.1 74 18 156/86 (109) 99 03/01/17 03:00 82 03/01/17 02:00 78 03/01/17 01:00 80 03/01/17 00:30 98.1 82 18 143/74 (97) 98 03/01/17 00:00 92 02/28/17 23:00 82 02/28/17 22:06 96 40 02/28/17 22:00 80 02/28/17 21:33 96 Nasal Cannula 6.00 02/28/17 21:00 82 02/28/17 20:30 97.7 91 16 157/59 (91) 97 02/28/17 20:00 90 02/28/17 19:00 95 02/28/17 18:08 98.1 81 18 149/82 (104) 100 02/28/17 18:08 82 02/28/17 16:00 98.2 77 33 145/74 (97) 96 02/28/17 16:00 77 02/28/17 14:00 80 02/28/17 12:00 80 02/28/17 12:00 98.4 80 33 140/88 (105) 98 02/28/17 11:06 99 Nasal Cannula 6.00 02/28/17 10:00 79 I/O 02/28/17 02/28/17 02/28/17 03/01/17 03/01/17 03/01/17 07:00 15:00 23:00 07:00 15:00 23:00 Intake Total 160 ml 750 ml 340 ml Output Total 600 ml 1900 ml 975 ml Balance -440 ml -1150 ml -635 ml Intake Oral 60 ml 750 ml 240 ml IV Total 100 ml 100 ml Output Urine Total 600 ml 1900 ml 975 ml # Bowel Movements 0 0 0 Result Diagram: 03/01/17 0459 02/28/17 0900 Imaging Last Impressions Chest X-Ray 02/27/17 0600 Signed Impressions: Service Date/Time: Monday, February 27, 2017 04:56 - CONCLUSION: Mild right hemidiaphragm elevation. No significant interval change. Moise Carpenter MD Abdomen/Pelvis CT 02/25/17 0000 Signed Impressions: Service Date/Time: Saturday, February 25, 2017 12:11 - CONCLUSION: 1. Posterior bibasilar patchiness consistent with atelectasis and/or mild infiltrates. 2. Tiny bilateral pleural effusions. 3. Uncomplicated colonic diverticulosis. 4. Markedly enlarged prostate gland. 5. Small midline ventral abdominal wall hernia containing only fat. 6. Bilobed infrarenal abdominal aortic aneurysm which measures 3.4 cm in greatest dimension. 7. Degenerative changes and scoliosis of the thoraco-lumbar spine. Vinnie Montemayor MD Hip and Pelvis X-Ray 02/23/17 0000 Signed Impressions: Service Date/Time: Thursday, February 23, 2017 18:25 - CONCLUSION: 1. Suboptimal exam due to patient size. No displaced fracture or dislocation identified. Helder Hernandez MD Objective Remarks GENERAL: NAD SKIN: Warm and dry. HEAD: Normocephalic. EYES: No scleral icterus. No injection or drainage. NECK: Supple, trachea midline. No JVD or lymphadenopathy. CARDIOVASCULAR: Regular rate and rhythm without murmurs, gallops, or rubs. RESPIRATORY: Breath sounds equal bilaterally. No accessory muscle use. GASTROINTESTINAL: Abdomen soft, non-tender, nondistended. MUSCULOSKELETAL: No cyanosis, or edema. BACK: Nontender without obvious deformity. No CVA tenderness. A/P Problem List: (1) Non-ST elevation AL (NSTEMI) ICD Code: I21.4 - Non-ST elevation (NSTEMI) myocardial infarction Status: Acute (2) Severe sepsis ICD Code: A41.9 - Sepsis, unspecified organism; R65.20 - Severe sepsis without septic shock Status: Acute (3) Hypertension ICD Code: I10 - Essential (primary) hypertension Status: Chronic (4) Ischemic cardiomyopathy ICD Code: I25.5 - Ischemic cardiomyopathy Status: Chronic (5) Paroxysmal supraventricular tachycardia ICD Code: I47.1 - Supraventricular tachycardia Status: Acute Assessment and Plan 72 yrs old man with Non-STEMI Resp Insuff - resolving. Leukocytosis - improving. Gram negative bacteremia- Likely source UTI GUALBERTO..improving Obstructive uropathy- s/p manriquez placement, improving. Rhabdo Mild lactic acidemia Hypertension Chronic venous stasis Plan Pulm: Continue with oxygen keep sat >92% Bronchodilators, wean nc as tolerated. Appreciate input from pulmonary medicine Currently on Solu-Medrol, antibiotics CV: Monitor HR and BP keep MAP>65mmHg Continue ASA, Lipitor, Coreg, Plavix. On Heparin drip- monitor PTT. Echo showed EF 45% continue amiodarone. Cards is following- Dr. Thompson, plan for left heart catheterization Thursday , 03/02/17 : Monitor renal function, I/O's, avoid nephrotoxins CT abdomen/pelvis: colonic diverticulosis. Markedly enlarged prostate gland.. Small midline ventral abdominal wall hernia containing only fat. Bilobed infrarenal abdominal aortic aneurysm which measures 3.4 cm in greatest dimension. Flomax 0.4mg QD. Urology is following- Dr. Arroyo ID: Continue with abx ( Aztreonam, Levaquin) monitor for signs of infections ( Fever, WBC) ID is following BC from 02/23: Eloise Brunner, follow up on urine cx- NGTD, sputum cx : normal resp susu. Wound service is following for Chronic venous stasis GI prophylaxis- on Pepcid DVT prophylaxis- On Heparin drip Problem Qualifiers (1) Hypertension: Qualified Codes: I10 - Essential (primary) hypertension Ru Anton MD Mar 01, 2017 08:54
[2017-03-01] MEDS: DOCUSATE SODIUM 50 MG/SENNA 8.6 MG TAB PO SCH ×2 (09:00→20:47)
[2017-03-01] MEDS: SODIUM CHLORIDE 0.9% FLUSH 10 ML FLUSH IV FLUSH SCH ×2 (09:22→20:47)
[2017-03-01] MEDS: CARVEDILOL 6.25 MG TAB PO SCH (09:22)
[2017-03-01] MEDS: AMIODARONE 200 MG TAB PO SCH ×2 (09:22→20:46)
[2017-03-01] MEDS: TAMSULOSIN HCL 0.4 MG CAP PO SCH (09:22)
[2017-03-01] MEDS: ASPIRIN EC 325 MG TABEC PO SCH (09:22)
[2017-03-01] MEDS: methylPREDNISolone SOD SUCC 40 MG/1 ML VIAL IV SCH ×2 (09:22→20:46)
[2017-03-01] MEDS: CLOPIDOGREL 75 MG TAB PO SCH (09:22)
--- NOTE | 2017-03-01 09:47 | PD.CARD.PN ---
Subjective Subjective Remarks Denies dyspnea, CP, dizziness, palpitations, PND. Objective Medications Item Value Date Time Carvedilol 6.25 mg 02/28/17 2100 (Coreg) BID/PO 03/01/17921 Amiodarone HCl 400 mg 02/27/17 0945 (Cordarone) Q12HR/PO 03/01/17921 Atorvastatin 40 mg 02/24/172099 Calcium HS/PO 02/28/17 210 (Lipitor) Clopidogrel 75 mg 02/24/1700 Bisulfate DAILY/PO 03/01/17921 (Plavix) Aspirin 325 mg 02/24/17899 (Ecotrin Ec) DAILY/PO 03/01/17921 Heparin Sodium/ 250 ml @ 10 mls/hr 02/23/171999 Dextrose TITRATE PRN/IV 02/28/17 152 Current Medications Medications (Trade) Dose Ordered Sig/Alexandro Route Start Time Stop Time Status Last Admin (Plavix) 75 mg DAILY PO 02/24/17 09:00 03/01/17 09:22 (Nitrostat Sl) 0.4 mg Q5M PRN SL 02/23/17 19:45 (Percocet 5-325 Mg) 1 tab Q6H PRN PO 02/23/17 19:45 Future Hold (NS Flush) 2 ml UNSCH PRN IV FLUSH 02/23/17 19:45 (NS Flush) 2 ml BID IV FLUSH 02/23/17 21:00 03/01/17 09:22 (Tylenol) 650 mg Q6H PRN PO 02/23/17 19:45 (Morphine Inj) 2 mg Q2H PRN IV PUSH 02/23/17 19:45 (Zofran Inj) 4 mg Q6H PRN IV PUSH 02/23/17 19:45 (Duoneb Neb) 1 ampule Q2HR NEB PRN INH 02/23/17 19:45 Miscellaneous Information 1 Q361D XX 02/23/17 19:45 (Chlorhexidine 2% Cloth) Taper DAILY@04 TOP 02/24/17 04:00 02/20/18 03:59 02/26/17 03:59 (Chlorhexidine 2% Cloth) 3 pack UNSCH PRN TOP 02/23/17 19:45 (Roaxnne-Colace) 1 tab BID PO 02/23/17 21:00 02/28/17 21:01 (Milk Of Magnesia Liq) 30 ml Q12H PRN PO 02/23/17 19:45 (Senokot) 17.2 mg Q12H PRN PO 02/23/17 19:45 (Dulcolax Supp) 10 mg DAILY PRN RECTAL 02/23/17 19:45 (Lactulose Liq) 30 ml DAILY PRN PO 02/23/17 19:45 (Ecotrin Ec) 325 mg DAILY PO 02/24/17 09:00 03/01/17 09:22 (Heparin Inj) 5,000 units UNSCH PRN IV PUSH 02/24/17 02:00 (Heparin Inj) 2,500 units UNSCH PRN IV PUSH 02/24/17 02:00 Heparin Sodium/ Dextrose 250 ml @ 10 mls/hr TITRATE PRN IV 02/23/17 20:00 02/28/17 15:22 (Lipitor) 40 mg HS PO 02/24/17 21:00 02/28/17 21:02 (Duoneb Neb) 1 ampule Q6HR NEB NEB 02/26/17 22:00 03/01/17 05:57 (SoluMEDROL INJ) 40 mg BID IV 02/26/17 21:00 03/01/17 09:22 (Flomax) 0.4 mg DAILY PO 02/27/17 09:00 03/01/17 09:22 (Cordarone) 400 mg Q12HR PO 02/27/17 09:45 03/01/17 09:22 Levofloxacin/ Dextrose 100 ml @ 100 mls/hr Q24H IV 02/27/17 21:00 03/10/17 23:55 02/28/17 21:01 (Coreg) 6.25 mg BID PO 02/28/17 21:00 03/01/17 09:22 Vital Signs / I&O Vital Signs Date Time Temp Pulse Resp B/P (MAP) Pulse Ox O2 Delivery O2 Flow Rate FiO2 03/01/17 07:00 77 03/01/17 06:00 72 03/01/17 05:58 98 Nasal Cannula 5.00 03/01/17 05:00 70 03/01/17 04:00 82 03/01/17 04:00 98.1 74 18 156/86 (109) 99 03/01/17 03:00 82 03/01/17 02:00 78 03/01/17 01:00 80 03/01/17 00:30 98.1 82 18 143/74 (97) 98 03/01/17 00:00 92 02/28/17 23:00 82 02/28/17 22:06 96 40 02/28/17 22:00 80 02/28/17 21:33 96 Nasal Cannula 6.00 02/28/17 21:00 82 02/28/17 20:30 97.7 91 16 157/59 (91) 97 02/28/17 20:00 90 02/28/17 19:00 95 02/28/17 18:08 98.1 81 18 149/82 (104) 100 02/28/17 18:08 82 02/28/17 16:00 98.2 77 33 145/74 (97) 96 02/28/17 16:00 77 02/28/17 14:00 80 02/28/17 12:00 80 02/28/17 12:00 98.4 80 33 140/88 (105) 98 02/28/17 11:06 99 Nasal Cannula 6.00 02/28/17 10:00 79 I/O 02/28/17 02/28/17 02/28/17 03/01/17 03/01/17 03/01/17 07:00 15:00 23:00 07:00 15:00 23:00 Intake Total 160 ml 750 ml 340 ml Output Total 600 ml 1900 ml 975 ml Balance -440 ml -1150 ml -635 ml Intake Oral 60 ml 750 ml 240 ml IV Total 100 ml 100 ml Output Urine Total 600 ml 1900 ml 975 ml # Bowel Movements 0 0 0 Physical Exam GENERAL: Well developed, well nourished. No acute distress. HEENT: Jugular venous pressure very difficult to assess. CHEST: Lungs clear to auscultation anteriorly. CARDIAC: Regular rate and rhythm without S3, S4, or murmur. ABDOMEN: Soft, nontender, no hepatosplenomegaly. Bowel sounds present. EXTREMITIES: No clubbing, cyanosis, or edema. Chronic venous stasis changes. Laboratory Laboratory Tests Test 03/01/17 04:59 White Blood Count 26.8 TH/MM3 Red Blood Count 4.19 MIL/MM3 Hemoglobin 12.0 GM/DL Hematocrit 37.0 % Mean Corpuscular Volume 88.3 FL Mean Corpuscular Hemoglobin 28.7 PG Mean Corpuscular Hemoglobin Concent 32.5 % Red Cell Distribution Width 14.6 % Platelet Count 121 TH/MM3 Mean Platelet Volume 10.7 FL Activated Partial Thromboplast Time 47.6 SEC Assessment and Plan Problem List: (1) Non-ST elevation [place] (NSTEMI) ICD Codes: I21.4 - Non-ST elevation (NSTEMI) myocardial infarction Status: Acute Plan: Stable overnight. No definite angina at rest. EF unchanged from last year, ~45%. REC cath Thursday 7:30 am continue beta kelsie, ASA, heparin, clopidogrel; no STEVAN-I for now with his renal insufficiency (2) Paroxysmal supraventricular tachycardia ICD Codes: I47.1 - Supraventricular tachycardia Status: Acute Plan: Initial admission EKG's suboptimal, possible SVT. Stable overnight. No further atrial tachycardia (cannot rule out atrial fib). Continue beta kelsie, oral Amiodarone. (3) Hypertension ICD Codes: I10 - Essential (primary) hypertension Status: Chronic Plan: Mildly hypertensive. Rec further increase beta kelsie dose. (4) Ischemic cardiomyopathy ICD Codes: I25.5 - Ischemic cardiomyopathy Status: Chronic Plan: No major change in EF, 45%, by echo, compared to last year by cath. No definite CHF except tiny bilateral pleural effusions noted on abdominal CT. Rec continue current medical regimen. Code Status full code Discussed Condition With patient Problem Qualifiers (1) Hypertension: Qualified Codes: I10 - Essential (primary) hypertension Diallo Thompson MD Mar 01, 2017 09:47
[2017-03-01] MEDS: HEPARIN-D5W 25,000 U/250 ML 250 ML IV PRN (11:07)
[2017-03-01] MEDS ORDERED: FUROSEMIDE 20 MG/2 ML VIAL IV PUSH ONE (17:00)
[2017-03-01] MEDS: LEVOFLOXACIN 500 MG PREMIX INJ 100 ML IV SCH (20:45)
[2017-03-01] MEDS: ATORVASTATIN 40 MG TAB PO SCH (20:46)
[2017-03-01] MEDS: LACTIC ACID (AMMONIUM LACTATE) 12% LOTION 225 GM BTL TOPICAL SCH (21:00)
[2017-03-01] MEDS ORDERED: CARVEDILOL 6.25 MG TAB PO SCH (21:00)
[2017-03-02] VITALS (25 sets, daily range): BP systolic 118–152; BP diastolic 72–86; PULSE 60–74; RESP 16–22; TEMP 97.5–98.4; O2SAT 87–99
[2017-03-02] MEDS: RESP: ALBUTEROL 2.5 MG/IPRATROPIUM 0.5 MG NEB (SCH) NEB ×4 (03:34→20:00)
[2017-03-02] MEDS: CHLORHEXIDINE GLUCONATE 2 % 1 PACK (2 CLOTHS) TOP SCH (04:00)
[2017-03-02 04:45] LABS: AUTOMATED NEUTROPHIL # 16.9 TH/MM3 (1.8-7.7); BASOPHIL # 0.1 TH/MM3 (0-0.2); BASOPHIL % 0.5 % (0.0-2.0); EOSINOPHIL % 0.2 % (0.0-4.0); HEMATOCRIT 39.8 % (39.0-51.0); LYMPH % 2.4 % (9.0-44.0); LYMPHOCYTE # 0.4 TH/MM3 (1.0-4.8); MEAN CORPUSCULAR HEMOGLOBIN 28.3 PG (27.0-34.0); MEAN CORPUSCULAR HGB CONC 32.5 % (32.0-36.0); MONO % 2.1 % (0.0-8.0); NEUT % 94.8 % (16.0-70.0); PLATELET COUNT 94 TH/MM3 (150-450); RED BLOOD COUNT 4.57 MIL/MM3 (4.50-5.90); RED CELL DISTRIBUTION WIDTH 14.7 % (11.6-17.2); WHITE BLOOD COUNT 17.8 TH/MM3 (4.0-11.0)
[2017-03-02 04:52] LABS: HEMO FLAGS AUTO DIFF; POTASSIUM 4.5 MEQ/L (3.5-5.1)
[2017-03-02 06:51] LABS: BANDS 2 % (0-6); MYELOCYTES 1 % (0-0); NEUTROPHIL # MANUAL DIFF 17.1 TH/MM3 (1.8-7.7); POLYS (SEG NEUTROPHILS) 93 % (16-70); WBC DIFF SAMPLE 100
[2017-03-02 06:52] LABS: PLATELET ESTIMATE SMEAR LOW (NORMAL); PLATELET MORPHOLOGY NORMAL (NORMAL); SCAN/DIFF FINAL DIFF MANUAL
[2017-03-02] MEDS ORDERED: HEPARIN SODIUM - IV 10,000 UNITS/10 ML VIAL ONE (07:20)
[2017-03-02] MEDS ORDERED: VERAPAMIL HCL 5 MG/2 ML VIAL ONE (07:20)
[2017-03-02] MEDS ORDERED: NITROGLYCERIN INJ 5 ML ONE (07:20)
[2017-03-02] MEDS ORDERED: HEPARIN-NS/PF INJ 500 ML ONE (07:20)
[2017-03-02] MEDS ORDERED: MIDAZOLAM HCL 2 MG/2 ML VIAL ONE (07:21)
--- NOTE | 2017-03-02 08:38 | PD.CARD.PN ---
Subjective Subjective Remarks Resting comfortably. Denies dyspnea, CP, dizziness, palpitations. Objective Medications Item Value Date Time Carvedilol 12.5 mg 03/01/172099 (Coreg) BID/PO 03/01/172046 Amiodarone HCl 400 mg 02/27/1745 (Cordarone) Q12HR/PO 03/01/172045 Atorvastatin 40 mg 02/24/172099 Calcium HS/PO 03/01/172045 (Lipitor) Clopidogrel 75 mg 02/24/1700 Bisulfate DAILY/PO 03/01/17921 (Plavix) Aspirin 325 mg 02/24/17899 (Ecotrin Ec) DAILY/PO 03/01/17921 Heparin Sodium/ 250 ml @ 10 mls/hr 02/23/171999 Dextrose TITRATE PRN/IV 03/01/17 110 Current Medications Medications (Trade) Dose Ordered Sig/Alexandro Route Start Time Stop Time Status Last Admin (Plavix) 75 mg DAILY PO 02/24/17 09:00 03/01/17 09:22 (Nitrostat Sl) 0.4 mg Q5M PRN SL 02/23/17 19:45 (Percocet 5-325 Mg) 1 tab Q6H PRN PO 02/23/17 19:45 Future Hold (NS Flush) 2 ml UNSCH PRN IV FLUSH 02/23/17 19:45 (NS Flush) 2 ml BID IV FLUSH 02/23/17 21:00 03/01/17 09:22 (Tylenol) 650 mg Q6H PRN PO 02/23/17 19:45 (Morphine Inj) 2 mg Q2H PRN IV PUSH 02/23/17 19:45 (Zofran Inj) 4 mg Q6H PRN IV PUSH 02/23/17 19:45 (Duoneb Neb) 1 ampule Q2HR NEB PRN INH 02/23/17 19:45 Miscellaneous Information 1 Q361D XX 02/23/17 19:45 (Chlorhexidine 2% Cloth) Taper DAILY@04 TOP 02/24/17 04:00 02/20/18 03:59 02/26/17 03:59 (Chlorhexidine 2% Cloth) 3 pack UNSCH PRN TOP 02/23/17 19:45 (Roxanne-Colace) 1 tab BID PO 02/23/17 21:00 03/01/17 20:47 (Milk Of Magnesia Liq) 30 ml Q12H PRN PO 02/23/17 19:45 (Senokot) 17.2 mg Q12H PRN PO 02/23/17 19:45 (Dulcolax Supp) 10 mg DAILY PRN RECTAL 02/23/17 19:45 (Lactulose Liq) 30 ml DAILY PRN PO 02/23/17 19:45 (Ecotrin Ec) 325 mg DAILY PO 02/24/17 09:00 03/01/17 09:22 (Heparin Inj) 5,000 units UNSCH PRN IV PUSH 02/24/17 02:00 (Heparin Inj) 2,500 units UNSCH PRN IV PUSH 02/24/17 02:00 Heparin Sodium/ Dextrose 250 ml @ 10 mls/hr TITRATE PRN IV 02/23/17 20:00 03/01/17 11:07 (Lipitor) 40 mg HS PO 02/24/17 21:00 03/01/17 20:46 (Duoneb Neb) 1 ampule Q6HR NEB NEB 02/26/17 22:00 03/02/17 03:34 (SoluMEDROL INJ) 40 mg BID IV 02/26/17 21:00 03/01/17 20:46 (Flomax) 0.4 mg DAILY PO 02/27/17 09:00 03/01/17 09:22 (Cordarone) 400 mg Q12HR PO 02/27/17 09:45 03/01/17 20:46 Levofloxacin/ Dextrose 100 ml @ 100 mls/hr Q24H IV 02/27/17 21:00 03/10/17 23:55 03/01/17 20:45 (Coreg) 12.5 mg BID PO 03/01/17 21:00 03/01/17 20:47 (Lac-Hydrin 12% Lotion) 1 applic BID TOPICAL 03/01/17 21:00 03/01/17 21:00 Vital Signs / I&O Vital Signs Date Time Temp Pulse Resp B/P (MAP) Pulse Ox O2 Delivery O2 Flow Rate FiO2 03/02/17 06:00 70 03/02/17 05:00 68 03/02/17 04:00 66 03/02/17 03:36 98.4 66 16 152/86 (108) 99 03/02/17 03:00 65 03/02/17 02:00 74 03/02/17 01:00 66 03/02/17 00:00 62 03/01/17 23:50 98.4 72 16 153/75 (101) 98 03/01/17 23:00 63 03/01/17 22:42 95 Nasal Cannula 3.00 03/01/17 22:00 64 03/01/17 21:00 70 03/01/17 20:17 98.3 71 16 159/81 (107) 99 03/01/17 20:00 71 03/01/17 19:00 66 03/01/17 18:00 70 03/01/17 17:00 72 03/01/17 16:00 72 03/01/17 15:00 71 03/01/17 15:00 97.4 73 18 140/66 (90) 96 03/01/17 14:00 74 03/01/17 13:00 72 03/01/17 12:00 74 03/01/17 11:00 98.1 74 18 140/72 (94) 97 03/01/17 11:00 75 03/01/17 10:18 97 Nasal Cannula 4.00 03/01/17 10:00 88 03/01/17 09:00 88 I/O 03/01/17 03/01/17 03/01/17 03/02/17 03/02/17 03/02/17 07:00 15:00 23:00 07:00 15:00 23:00 Intake Total 353 ml 65 ml 480 ml 480 ml Output Total 975 ml 2450 ml 1650 ml Balance -622 ml 65 ml -1970 ml -1170 ml Intake Oral 240 ml 480 ml 480 ml IV Total 113 ml 65 ml Output Urine Total 975 ml 2450 ml 1650 ml # Bowel Movements 0 0 Physical Exam GENERAL: Well developed, well nourished. No acute distress. HEENT: Jugular venous pressure very difficult to assess. CHEST: Lungs clear to auscultation anteriorly. CARDIAC: Regular rate and rhythm without S3, S4, I-II/ NEMO RUSB with mildly diminished S2. ABDOMEN: Soft, nontender, no hepatosplenomegaly. Bowel sounds present. EXTREMITIES: No clubbing, cyanosis, or edema. Chronic venous stasis changes. Laboratory Laboratory Tests Test 03/02/17 04:20 White Blood Count 17.8 TH/MM3 Red Blood Count 4.57 MIL/MM3 Hemoglobin 12.9 GM/DL Hematocrit 39.8 % Mean Corpuscular Volume 87.0 FL Mean Corpuscular Hemoglobin 28.3 PG Mean Corpuscular Hemoglobin Concent 32.5 % Red Cell Distribution Width 14.7 % Platelet Count 94 TH/MM3 Mean Platelet Volume 10.2 FL Neutrophils (%) (Auto) 94.8 % Lymphocytes (%) (Auto) 2.4 % Monocytes (%) (Auto) 2.1 % Eosinophils (%) (Auto) 0.2 % Basophils (%) (Auto) 0.5 % Neutrophils # (Auto) 16.9 TH/MM3 Lymphocytes # (Auto) 0.4 TH/MM3 Monocytes # (Auto) 0.4 TH/MM3 Eosinophils # (Auto) 0.0 TH/MM3 Basophils # (Auto) 0.1 TH/MM3 CBC Comment AUTO DIFF Differential Total Cells Counted 100 Neutrophils % (Manual) 93 % Band Neutrophils % 2 % Lymphocytes % 2 % Monocytes % 2 % Neutrophils # (Manual) 17.1 TH/MM3 Myelocytes 1 % Differential Comment FINAL DIFF MANUAL Platelet Estimate LOW Platelet Morphology Comment NORMAL Red Cell Morphology Comment NORMAL Blood Urea Nitrogen 52 MG/DL Creatinine 1.49 MG/DL Random Glucose 184 MG/DL Calcium Level 8.9 MG/DL Sodium Level 141 MEQ/L Potassium Level 4.5 MEQ/L Chloride Level 105 MEQ/L Carbon Dioxide Level 32.0 MEQ/L Anion Gap 4 MEQ/L Estimat Glomerular Filtration Rate 46 ML/MIN Assessment and Plan Problem List: (1) Non-ST elevation MT (NSTEMI) ICD Codes: I21.4 - Non-ST elevation (NSTEMI) myocardial infarction Status: Acute Plan: Stable overnight. Cath shows diffusely disease vessels with IVUS imaging confirming moderate to severe left main disease, severe ostial and mid LAD disease though with patent proximal stent, severe diagonal disease, severe restenosis of PL branch stent, EF 30%. Patient high risk candidate for CABG with his comorbid conditions. REC consider CV surgery consult for high risk CABG continue beta kelsie, ASA, heparin ; no STEVAN-I for now with his renal insufficiency stop Plavix for now (2) Paroxysmal supraventricular tachycardia ICD Codes: I47.1 - Supraventricular tachycardia Status: Acute Plan: Initial admission EKG's suboptimal, possible SVT. Stable since admission. No further atrial tachycardia (cannot rule out atrial fib). Continue beta kelsie, oral Amiodarone. (3) Hypertension ICD Codes: I10 - Essential (primary) hypertension Status: Chronic Plan: Mildly hypertensive. Rec further increase beta kelsie dose. (4) Ischemic cardiomyopathy ICD Codes: I25.5 - Ischemic cardiomyopathy Status: Chronic Plan: EF seems closer to 30% by cath. No definite CHF except tiny bilateral pleural effusions noted on abdominal CT. Rec continue current medical regimen. Code Status full code Problem Qualifiers (1) Hypertension: Qualified Codes: I10 - Essential (primary) hypertension Diallo Thompson MD Mar 02, 2017 08:38
--- NOTE | 2017-03-02 08:51 | CATHPROC ---
[facility] Report Study Information Study Number Admission Scheduled Start Study Start [id number] Feb 23 2017 7:54PM 02/28/2017 Mar 02 2017 7:06AM [place] [facility] Cardiac Catheterization Admit Source Facility Department Emergency department [facility] - Frame Table Operator Physician and Clinical Staff Initial Diallo Larsen Program Schedule Clerk Roberta Nelson RN Recorder Ami Franks,RT(R) Scrub Suri Garcia,RT(R) (BS) Procedures Performed Procedure Location (Site) Vessel Name Coronary Angiograms LCA Left Coronary Coronary Angiograms RCA Right Coronary IVUS Radial (right) Radial Art. L Heart Cath LV Gram-hand inj. LV LV Ventricle Wire insertion Radial (right) Radial Art. Equipment Time Computer Tape Librarian Description Size Mfg Part Number Used/Scraped [id number] 08:00 [employer] CRITICAL CARE WIRE, ASAKeypr PROWATER 180CM 180CM Used *[id number] TRANSDUCER, TRUWAVE [id number] 07:44 HOLLAND STEIN * Used W/STOCKCOCK *[id number] *[id number] *[id number] *[id number] 07:44 MALLINCKRODT SYRINGE, ANGIOMAT 150ML 150ML *[id number] Used 2S MEDICAL CONCEPT DRAPE, RADIAL FEMORAL FULL 07:44 * [id number] *[id number] Used DEVELOPMENT BODY [id number] 07:44 MEDLINE INDUSTRIES PACK, CCL CUSTOM * Used *[id number] 07:44 [employer] SUPPORT, ARTERIAL ADULT 16049 *[id number] Used [id number] 07:44 MEDLINE PACER PEN, SKIN DUAL W/ RULER * Used *[id number] BAND, RADIAL COMPRESSION TR [id number] 08:24 [employer] 29CM Used LARGE 29 *[id number] BAND, RADIAL COMPRESSION TR [id number] 08:28 [employer] MEDICAL 29CM Used LARGE 29 *[id number] SHEATH, FR6 RADIAL PRELUDE 07:44 [employer] FR 6 [id number] Used EASE 11CM [id number] 07:44 [employer] WIRE, EXCHANGE 260CM 3MMJ 260CM Used *[id number] 07:44 NAMIC MANIFOLD, 4 PORT * Used *[id number] 07:44 NYCOMED OMNIPAQUE, 350 MG, 150ML 150ML [id number] Used [id number] 07:44 WEBSTER MEDICAL BLANKET,WARM AIR CCL * Used *[id number] CATHETER, FR5 OPTITORQUE [id number] 07:38 TERUMSocialSci FR 5 Used RADIAL TIG 4.0 *[id number] CATHETER, [place] [employer] [id number] 07:55 [employer]OL[employer] Used IMAGING *[id number] Equipment Model, Serial, Lot Number and Expiration Data Description Model Number Serial Number Lot Number Expiration Date CATHETER, [place] [employer] [id number] 12-13-2018 IMAGING History: Current Medications Medication Dosage/Unit Route Frequency Last Date/Time Taken ASA CARVEDILOL LIPITOR PLAVIX HCTZ K-Dur History: Allergies Allergy Reaction erythromycin base Swelling azithromycin Swelling penicillin G Swelling History: Risk Factors Family History of Hypertension Dyslipidemia Previous [place] Premature CAD Yes Yes No Yes Prior Valve Prior PCI Prior PCIDate Prior CABG Surgery No Yes 05/15/2015 No Cerebrovascular Chronic Lung Diabetes Disease Disease Yes No No History: Symptoms/Diagnosis Selection Items SOB History: CV Disease Selection Items Cardiomyopathy ischemic History: Stress Tests Stress or Imaging Studies Performed No History: Other Disease Selection Items CAD Renal Failure/Insufficiency Labs Hgb (g/dl) Hct (%) WBC (l/cumm) Platelets (thousands) 11.60-17.00 35.00-51.00 4.00-11.00 150.00-450.00 12.9 39.8 17.8 94 Glucose (mg/dl) BUN (mg/dl) Creatinine (mg/dl) BUN:Creatinine (1:x) 74.00-106.00 7.00-18.00 0.50-1.30 10.00-20.00 184 52 1.4 37.1 Na (meq/l) K (meq/l) 136.00-145.00 3.50-5.10 141 4.5 INR (PTT:PT) 0.90-1.10 1.4 Troponin I (ng/ml) CPK (u/l) CPK-MB (ng/ML) 0.02-0.05 26.00-308.00 0.50-3.60 5.36 21.7 2.6 Medication Medication Total Dose (Bolus/Oral) Medication Total Dosage/Unit 1% XYLOCAINE 20 mL HEPARIN 1000 units RADIAL COCKTAIL 5 mL (Bolus) VERSED 2 mg Medications (Bolus/Oral) Medication Time Given Dosage/Unit Administered By Reason VERSED 03/02/2017 7:42:31 AM 2 mg Roberta Nelson 2 mg VERSED given in lab by Roberta Nelson, RN in Right Forearm via Peripheral IV. Ordered by Diallo Thompson. 1% XYLOCAINE 03/02/2017 7:42:49 AM 20 mL Diallo Thompson 20 mL 1% XYLOCAINE given in lab by Diallo Thompson in Right Radial via Subcutaneous. Ntg 200mcg Verapamil 2.5mg Heparin RADIAL COCKTAIL 03/02/2017 7:43:42 AM 5 mL (Bolus) Diallo Thompson 2500U 5 mL (Bolus) RADIAL COCKTAIL given in lab by Diallo Thompson in Right Radial via Radial. Using [Solution Name]. Reason: Ntg 200mcg Verapamil 2.5mg Heparin 2500U. HEPARIN 03/02/2017 8:01:30 AM 1000 units Roberta Nelson 1000 units HEPARIN given in lab by Roberta Nelson, ANNIE in Right Forearm via Peripheral IV. Ordered by Diallo Thompson. Medication (Drip) Medication Time Given Dosage/Unit Concentration/Unit Diluent (ml) Solution IV Solutions 03/02/2017 7:09:26 AM 50 mL (IV) NaCl .9 IV Solutions given in lab by Roberta Nelson, ANNIE in Right Forearm via Peripheral IV. Pump/Drip Flow u sing NaCl .9. Initial Case Assessment Cardiovascular HR Rhythm NIBP Chest Pain 66 sr 148/85 0 Edema Present Severe Circulatory - Right Pulses Dorsalis Pedis Femoral Radial d d 1 Scale (0,1,2,3,4,d) Circulatory - Left Pulses Dorsalis Pedis Femoral Radial d d Scale (0,1,2,3,4,d) Neurological State Oriented to time-place- Alert Moves all extremities person Respiration - General Respiration Rate SpO2 (%) O2 (lpm) (B/min) 20 97 4 Chronological Log Time Study Chronological Log 7:08:33 Patient arrived via Bed. 7:08:59 Patient Name, D.O.B, / Armband Verified By R.N. 7:09:00 Consent signed by the physician and the patient and verified by the Frame Table Operator staff. 7:09:01 Pre-op and post- op instructions given; patient acknowledges understanding of instructions. 7:09:02 Verbal Stimulation=2 Physical Stimulation=1 Airway=2 Respiration=2 TOTAL=7. (0=absent, 1=li mited, 2=present) 7::22 Patient has been NPO for More than 6Hrs. 7:: Skin Breakdown- severe cellulitis and chronic venostatic wounds in bilateral lower extremit ies 7:: Patient Warmer Placed on the Table. 7:: Angélica Prominences Protected 7:: A # 20 IV was noted in the Forearm (left). Grade = 0 7::25 A # 20 IV was noted in the Forearm (right). Grade = 0 7:: IV Solutions given in lab by Roberta Nelson RN in Right Forearm via Peripheral IV. Pump/D rip Flow using NaCl .9. 7:: History and physical on the chart or being dictated. Assessment: Initial Case, HR=66 BPM, Rhythm=sr, SBPQ=364/85 mmhg, Chest Pain=0, Edema=Severe Right Pulses: Emerson Ped=d, Femoral=d, Radial=1 7::27 Left Pulses: Emerson Ped=d, Femoral=d Neurological: State=Alert, Ox3, NOLAN Respiration: Resp=20 B/min, SpO2=97 %, O2=4 lpm 7:14:44 Allens test performed on the right radial and ulnar artery. Vitals capture started with the following parameters, Patient=Adult, Interval=5 min, Initial Pre lrxen=671 mmHg, 7:15:38 Deflation Rate=5 mmHg, Cuff placed on Left Arm 7:16:29 HR=55 bpm, TSUB=649/94 mmhg, SpO2=96.0 %, Resp=20 B/min 7:21:30 HR=66 bpm, GZME=296/85 mmhg, SpO2=96.0 %, Resp=19 B/min 7:23:34 Reference ECG taken 7:26:25 HR=65 bpm, TCTU=516/90 mmhg, SpO2=96.0 %, Resp=58 B/min 7:27:22 Right groin and right wrist prepped with 2% chlorhexidine, and draped after a 3 min. waiting time. 7:31:28 HR=66 bpm, XJFB=541/90 mmhg, SpO2=95.0 %, Resp=21 B/min 7:33:20 Pressure channel 1 zeroed. 7:35:27 paged 7:35:46 responded 7:36:29 HR=67 bpm, GCJS=007/89 mmhg, SpO2=95.0 %, Resp=19 B/min 7:38:55 MD arrived. 7:41:28 HR=67 bpm, XBCG=888/88 mmhg, SpO2=96.0 %, Resp=17 B/min Time Out. Correct patient, correct procedure, correct physician, power injector loaded, or not l oaded with contrast with 7:41:30 surgical team present. Time Out Concurred by MD and individual staff in procedure. 7:41:50 Case Start 7:42:31 2 mg VERSED given in lab by Roberta Nelson, ANNIE in Right Forearm via Peripheral IV. Ordered by Diallo Thompson. 7:42:49 20 mL 1% XYLOCAINE given in lab by Diallo Thompson in Right Radial via Subcutaneous. 7:43:11 Access site was Right Radial Artery. A SHEATH, FR6 RADIAL PRELUDE EASE 11CM FR 6 was advanced into the Radial (right) using the Katie sanabria 7:43:24 technique. 5 mL (Bolus) RADIAL COCKTAIL given in lab by Diallo Thompson in Right Radial via Radial. Using [Phoebe ution Name]. Reason: 7:43:42 Ntg 200mcg Verapamil 2.5mg Heparin 2500U. A CATHETER, FR5 OPTITORQUE RADIAL TIG 4.0 FR 5 was advanced over a wire. OMNIPAQUE, 350 MG, 150M L 150ML 7:44:11 was used for injections. 7:45:12 The LCA was injected and visualized at various angles. OMNIPAQUE, 350 MG, 150ML 150ML used. 7:45:51 The RCA was injected and visualized at various angles. OMNIPAQUE, 350 MG, 150ML 150ML used. 7:46:25 HR=70 bpm, HAOB=787/83 mmhg, SpO2=91 %, Resp=20 B/min Recorded Pressure: Ao, HR=70, Condition=Condition 1 7:46:30 (Aorta) Ao 122/72/94 After removing the current catheter a JL 3.5 INFINITI CATHETER FR 6 was advanced over a WIRE, EX CHANGE 260CM 7:48:08 3MMJ 260CM. 7:49:38 The LCA was injected and visualized at various angles. OMNIPAQUE, 350 MG, 150ML 150ML used. 7:51:28 HR=71 bpm, XQKV=547/75 mmhg, SpO2=94 %, Resp=20 B/min After removing the current catheter a MPA-2 INFINITI CATHETER FR 6 was advanced over a WIRE, EXC HANGE 260CM 7:54:56 3MMJ 260CM. 7:55:52 The LV was manually injected with 6 cc's and visualized. OMNIPAQUE, 350 MG, 150ML 150ML used . Recorded Pressure: LV, Ao, HR=91, Condition=Condition 1 7:56:01 (Left Ventricle) LV 141/11/23, (Aorta) Ao 120/67/94 7:56:27 HR=87 bpm, FFRR=410/84 mmhg, SpO2=94.0 %, Resp=18 B/min After removing the current catheter a XB 3.5 GUIDE CATHETER FR 6 was advanced over a WIRE, EXCHA NGE 260CM 7:57:03 3MMJ 260CM. 7:57:27 Activated Clotting Time Drawn 8:01:00 A WIRE, Cuculus PROWATER 180CM 180CM was inserted via Radial (right). 8:01:27 HR=73 bpm, CQOV=969/90 mmhg, SpO2=94.0 %, Resp=21 B/min 8:01:30 1000 units HEPARIN given in lab by Roberta Nelson, ANNIE in Right Forearm via Peripheral IV. Ordered by Diallo Thompson. 8:01:48 ACT (Normal Range 90-180) = 238 8:04:59 Interventional wire has crossed the lesion An CATHETER, [employer] IMAGING was advanced through the lesion in Prox LAD, OST LAD a nd left main. 8:05:34 Images saved onto IVUS hard drive 8:06:30 HR=73 bpm, DUJO=894/87 mmhg, SpO2=91.0 %, Resp=21 B/min 8:08:17 IVUS in progress using CATHETER, [employer] IMAGING 8:09:40 IVUS catheter removed 8:11:29 HR=72 bpm, HSOK=787/105 mmhg, SpO2=90 %, Resp=15 B/min 8:16:34 HR=69 bpm, YGID=748/86 mmhg, SpO2=92 %, Resp=19 B/min 8:19:36 Wire removed 8:19:48 Catheter was removed 8:20:30 Case End 8:21:33 HR=72 bpm, PWOP=901/91 mmhg, SpO2=91.0 %, Resp=25 B/min Radial Compression Device Used. 15 mLs of air placed in BAND, RADIAL COMPRESSION TR LARGE 29 2 9CM. Affected 8:21:44 hand 94 % O2 saturation. 8:21:49 No case complications noted. 8:26:32 HR=74 bpm, EAXJ=235/103 mmhg, SpO2=92.0 %, Resp=21 B/min 8:34:27 Bedside Report will be given. 8:34:36 A Left Heart Cath was performed. 8:36:00 Patient moved to stretcher End Study - Contrast Media Used In Study Contrast Total Opened (mL) Total Used (mL) Total Wasted (mL) Omnipaque 70 70 0 End Study - Maximum Contrast Load Max Contrast Load (mL) 409.1 End Study - Radiation Exposure Fluoro Time (minutes) 8.3 End Study - Patient Disposition Complications Transferred To Interventional Outcome No Telemetry Bed No attempt made
--- NOTE | 2017-03-02 08:59 | MA ---
cc: CATHIE ODONNELL M.D. DATE 03/02/2017 PROCEDURE Left heart catheterization, selective coronary angiography, left ventriculography, intravascular ultrasound imaging of the left main, ostial LAD, and proximal to mid-LAD. PROCEDURE NOTES The patient was brought to the Cardiac Catheterization Laboratory in a fasting state after having signed informed consent. The right radial region was prepped and draped as per policy and anesthetized with 1% lidocaine. Arterial access was obtained via the right radial artery and a 6-Bengali sheath placed. Coronary arteriography was performed using a [place] catheter. Additional shots were taken of the left coronary system using a Raymundo left 3.5 catheter. Left ventriculography was done using a multipurpose catheter. Intravascular ultrasound imaging was done as described below. There were no apparent immediate complications. A radial artery compression band was applied to his right wrist at the end of the case to achieve good hemostasis. HEMODYNAMIC DATA Left ventricle 141 with an end-diastolic pressure of 20. Aorta 120/67 with a mean of 94. There was approximately an 20-25 mmHg gradient across the aortic valve on pullback of the pigtail catheter. CORONARY ARTERIOGRAPHY The left main in some views may have up to 40% mid-stenosis. The left anterior descending is diffusely diseased. The stent is evident in its proximal portion, and there is mild diffuse re-stenosis of the stent. At the ostium of the LAD there is a shelf-like lesion which may result in up to 60% stenosis. The mid-LAD, just distal to the distal edge of the stent, has a tubular up to 65% stenosis. In the distal LAD there is a tubular up to 50% stenosis. The LAD gives rise to a relatively small caliber diagonal arising from the proximal vessel. There is severe and diffuse disease from the ostium to proximal portion of this diagonal resulting in up to 95% stenosis. The left circumflex and is a medium-sized vessel giving rise to a medium-sized branching first obtuse marginal and relatively small second obtuse marginal. There is up to 30% mid-stenosis of the left circumflex. The obtuse marginals overall have minimal diffuse luminal irregularities. The right coronary artery is also diffusely diseased. There is up to 30% proximal stenosis, 40% mid-disease, 60% irregular, possibly ulcerated distal disease. A stent is also evident at the ostium of the posterolateral branch and there is severe restenosis of the stent resulting in up to 95% stenosis. The posterolateral branch diameter is of adequate size for grafting. LEFT VENTRICULOGRAPHY Contrast injection of the left ventricle reveals global hypokinesis. Ejection fraction is estimated at 30%. INTRA INTRAVASCULAR ULTRASOUND IMAGING Due to the uncertainty regarding the severity of disease at the ostium of the LAD and in the proximal to mid-LAD, it was decided to perform intravascular ultrasound imaging. Adequate heparin was given during the procedure to achieve an ACT of greater than 250 seconds. Using a 6-Bengali XB 3.5 guiding catheter, the ostium of the left main was re-engaged. Using a 0.014 Prowater guidewire, the left main and the proximal to mid-LAD was crossed without difficulty and the tip of the wire positioned distally. A Mobissimo ultrasound catheter was advanced without difficulty into the mid-LAD, past the stent. Imaging reveals diffuse disease of the LAD. There is no normal vessel. The stent appears to have mild diffuse restenosis. Just distal to the stent the mid-LAD has eccentric stenosis resulting in up to 75% area stenosis and 65% diameter stenosis. In addition, in the mid-left main there is eccentric disease resulting in up to 62% area stenosis and at least 50% diameter stenosis. At the region of interest, the ostium of the LAD, there is similarly fairly diffuse disease with quantitative measurements showing 72% area stenosis and 50-60% diameter stenosis. Given these findings it was decided not to percutaneously intervene on the patient's diffuse coronary disease. CONCLUSIONS 1. Moderate to severe left main disease, severe ostial and mid-LAD disease demonstrated by intravascular ultrasound imaging with quantitative measurements in these regions as noted above. 2. Severe distal right coronary disease and severe restenosis of a posterolateral branch stent placed last year. Mild left circumflex disease. 3. Reduced left ventricular systolic function with estimated ejection fraction of 30% due to global hypokinesis. 4. Mild to moderate aortic stenosis. The transvalvular aortic gradient was measured at 20-25 mmHg. DISCUSSION 1. Surgery consultation will be obtained for possible bypass surgery, although the patient is a less than ideal candidate with his comorbid conditions. We will also consider treating him medically. MD OBDULIA Lincoln/GLENN /8:24 AM /8:40 AM MTDVanna
[2017-03-02] MEDS: LACTIC ACID (AMMONIUM LACTATE) 12% LOTION 225 GM BTL TOPICAL SCH ×2 (09:00→20:45)
--- NOTE | 2017-03-02 09:15 | HHI.PR ---
Subjective Remarks The pt wanted to know his cath results. He has not had a bowel movement for a while. Breathing comfortably. Discussed with nursing at the bedside. Objective Vitals Vital Signs Date Time Temp Pulse Resp B/P (MAP) Pulse Ox O2 Delivery O2 Flow Rate FiO2 03/02/17 06:00 70 03/02/17 05:00 68 03/02/17 04:00 66 03/02/17 03:36 98.4 66 16 152/86 (108) 99 03/02/17 03:00 65 03/02/17 02:00 74 03/02/17 01:00 66 03/02/17 00:00 62 03/01/17 23:50 98.4 72 16 153/75 (101) 98 03/01/17 23:00 63 03/01/17 22:42 95 Nasal Cannula 3.00 03/01/17 22:00 64 03/01/17 21:00 70 03/01/17 20:17 98.3 71 16 159/81 (107) 99 03/01/17 20:00 71 03/01/17 19:00 66 03/01/17 18:00 70 03/01/17 17:00 72 03/01/17 16:00 72 03/01/17 15:00 71 03/01/17 15:00 97.4 73 18 140/66 (90) 96 03/01/17 14:00 74 03/01/17 13:00 72 03/01/17 12:00 74 03/01/17 11:00 98.1 74 18 140/72 (94) 97 03/01/17 11:00 75 03/01/17 10:18 97 Nasal Cannula 4.00 03/01/17 10:00 88 I/O 03/01/17 03/01/17 03/01/17 03/02/17 03/02/17 03/02/17 07:00 15:00 23:00 07:00 15:00 23:00 Intake Total 353 ml 65 ml 480 ml 480 ml Output Total 975 ml 2450 ml 1650 ml Balance -622 ml 65 ml -1970 ml -1170 ml Intake Oral 240 ml 480 ml 480 ml IV Total 113 ml 65 ml Output Urine Total 975 ml 2450 ml 1650 ml # Bowel Movements 0 0 Result Diagram: 03/02/17 0420 03/02/17 0420 Imaging Last Impressions Chest X-Ray 02/27/17 0600 Signed Impressions: Service Date/Time: Monday, February 27, 2017 04:56 - CONCLUSION: Mild right hemidiaphragm elevation. No significant interval change. Moise Carpenter MD Abdomen/Pelvis CT 02/25/17 0000 Signed Impressions: Service Date/Time: Saturday, February 25, 2017 12:11 - CONCLUSION: 1. Posterior bibasilar patchiness consistent with atelectasis and/or mild infiltrates. 2. Tiny bilateral pleural effusions. 3. Uncomplicated colonic diverticulosis. 4. Markedly enlarged prostate gland. 5. Small midline ventral abdominal wall hernia containing only fat. 6. Bilobed infrarenal abdominal aortic aneurysm which measures 3.4 cm in greatest dimension. 7. Degenerative changes and scoliosis of the thoraco-lumbar spine. Vinnie Montemayor MD Hip and Pelvis X-Ray 02/23/17 0000 Signed Impressions: Service Date/Time: Thursday, February 23, 2017 18:25 - CONCLUSION: 1. Suboptimal exam due to patient size. No displaced fracture or dislocation identified. Helder Hernandez MD Objective Remarks GENERAL: NAD SKIN: Erythema and dermatitis of venous stasis on lower extremities. HEAD: Normocephalic. EYES: No scleral icterus. No injection or drainage. NECK: Supple, trachea midline. No JVD or lymphadenopathy. CARDIOVASCULAR: Regular rate and rhythm without murmurs, gallops, or rubs. RESPIRATORY: Breath sounds equal bilaterally. No accessory muscle use. GASTROINTESTINAL: Abdomen soft, non-tender, nondistended. +BS. MUSCULOSKELETAL: Upper and lower extremity edema noted. BACK: Nontender without obvious deformity. No CVA tenderness. NEURO: No gross deficits. PSYCH: Mood and affect appropriate. Medications and IVs Current Medications Medications (Trade) Dose Ordered Sig/Alexandro Route Start Time Stop Time Status Last Admin (Nitrostat Sl) 0.4 mg Q5M PRN SL 02/23/17 19:45 (Percocet 5-325 Mg) 1 tab Q6H PRN PO 02/23/17 19:45 Future Hold (NS Flush) 2 ml UNSCH PRN IV FLUSH 02/23/17 19:45 (NS Flush) 2 ml BID IV FLUSH 02/23/17 21:00 03/01/17 09:22 (Tylenol) 650 mg Q6H PRN PO 02/23/17 19:45 (Morphine Inj) 2 mg Q2H PRN IV PUSH 02/23/17 19:45 (Zofran Inj) 4 mg Q6H PRN IV PUSH 02/23/17 19:45 (Duoneb Neb) 1 ampule Q2HR NEB PRN INH 02/23/17 19:45 Miscellaneous Information 1 Q361D XX 02/23/17 19:45 (Chlorhexidine 2% Cloth) Taper DAILY@04 TOP 02/24/17 04:00 02/20/18 03:59 02/26/17 03:59 (Chlorhexidine 2% Cloth) 3 pack UNSCH PRN TOP 02/23/17 19:45 (Roxanne-Colace) 1 tab BID PO 02/23/17 21:00 03/01/17 20:47 (Milk Of Magnesia Liq) 30 ml Q12H PRN PO 02/23/17 19:45 (Senokot) 17.2 mg Q12H PRN PO 02/23/17 19:45 (Dulcolax Supp) 10 mg DAILY PRN RECTAL 02/23/17 19:45 (Lactulose Liq) 30 ml DAILY PRN PO 02/23/17 19:45 (Ecotrin Ec) 325 mg DAILY PO 02/24/17 09:00 03/01/17 09:22 (Heparin Inj) 5,000 units UNSCH PRN IV PUSH 02/24/17 02:00 (Heparin Inj) 2,500 units UNSCH PRN IV PUSH 02/24/17 02:00 Heparin Sodium/ Dextrose 250 ml @ 10 mls/hr TITRATE PRN IV 02/23/17 20:00 03/01/17 11:07 (Lipitor) 40 mg HS PO 02/24/17 21:00 03/01/17 20:46 (Duoneb Neb) 1 ampule Q6HR NEB NEB 02/26/17 22:00 03/02/17 03:34 (SoluMEDROL INJ) 40 mg BID IV 02/26/17 21:00 03/01/17 20:46 (Flomax) 0.4 mg DAILY PO 02/27/17 09:00 03/01/17 09:22 Levofloxacin/ Dextrose 100 ml @ 100 mls/hr Q24H IV 02/27/17 21:00 03/10/17 23:55 03/01/17 20:45 (Lac-Hydrin 12% Lotion) 1 applic BID TOPICAL 03/01/17 21:00 03/01/17 21:00 (Cordarone) 200 mg DAILY PO 03/02/17 09:00 (Coreg) 25 mg BID PO 03/02/17 09:00 (Miralax) 17 gm DAILY PO 03/02/17 09:30 UNV (Lactulose Liq) 30 ml ONCE ONCE PO 03/02/17 09:30 03/02/17 09:31 UNV A/P Problem List: (1) Non-ST elevation SD (NSTEMI) ICD Code: I21.4 - Non-ST elevation (NSTEMI) myocardial infarction Status: Acute (2) Severe sepsis ICD Code: A41.9 - Sepsis, unspecified organism; R65.20 - Severe sepsis without septic shock Status: Acute (3) Hypertension ICD Code: I10 - Essential (primary) hypertension Status: Chronic (4) Ischemic cardiomyopathy ICD Code: I25.5 - Ischemic cardiomyopathy Status: Chronic (5) Paroxysmal supraventricular tachycardia ICD Code: I47.1 - Supraventricular tachycardia Status: Acute Assessment and Plan CAD Cath 03/02 showed: diffusely diseased vessels with IVUS imaging confirming moderate to severe left main disease, severe ostial and mid LAD disease though with patent proximal stent, severe diagonal disease, severe restenosis of PL branch stent, EF 30%. - Continue ASA, Lipitor, Coreg, amiodarone and heparin. Hold Plavix. - CTS consult pending. - follow up with cardiology. - telemetry. COPD Pulmonology consult appreciated. Breathing status improved. - Continue with oxygen keep sat >92% - Bronchodilators. - Currently on Solu-Medrol, antibiotics. Follow up with pulmonology. BPH CT abdomen/pelvis: colonic diverticulosis. Markedly enlarged prostate gland.. Small midline ventral abdominal wall hernia containing only fat. Bilobed infrarenal abdominal aortic aneurysm which measures 3.4 cm in greatest dimension. Urology consult appreciated. - Flomax 0.4mg QD. - Olmedo. Bacteremia BC from 02/23: Eloise Brunner, follow up on urine cx- NGTD, sputum cx: normal resp susu. - Continue with abx ( Aztreonam, Levaquin) per ID. - Wound service is following for Chronic venous stasis Acute on chronic renal failure Appears stable. - hold ACEi. - follow BMP and avoid nephrotoxic agents. GI prophylaxis- on Pepcid DVT prophylaxis- On Heparin drip Problem Qualifiers (1) Hypertension: Qualified Codes: I10 - Essential (primary) hypertension Bert Vargas DO Mar 02, 2017 09:15
[2017-03-02] MEDS: AMIODARONE 200 MG TAB PO SCH (09:23)
[2017-03-02] MEDS: ASPIRIN EC 325 MG TABEC PO SCH (09:23)
[2017-03-02] MEDS: TAMSULOSIN HCL 0.4 MG CAP PO SCH (09:23)
[2017-03-02] MEDS: CARVEDILOL 12.5 MG TAB PO SCH ×2 (09:23→20:44)
[2017-03-02] MEDS: methylPREDNISolone SOD SUCC 40 MG/1 ML VIAL IV SCH ×2 (09:23→20:45)
[2017-03-02] MEDS: DOCUSATE SODIUM 50 MG/SENNA 8.6 MG TAB PO SCH ×2 (09:23→20:45)
[2017-03-02] MEDS: SODIUM CHLORIDE 0.9% FLUSH 10 ML FLUSH IV FLUSH SCH ×2 (09:24→21:00)
[2017-03-02] MEDS: POLYETHYLENE GLYCOL 17 GM PKG PO SCH (09:30)
[2017-03-02] MEDS ORDERED: LACTULOSE SYRUP 20 GM/30 ML CUP PO ONE (09:30)
[2017-03-02] MEDS ORDERED: MORPHINE SULFATE 2 MG/ML INJ IV PUSH PRN (10:00)
[2017-03-02] MEDS: HEPARIN-D5W 25,000 U/250 ML 250 ML IV PRN (10:14)
[2017-03-02] MEDS ORDERED: IOHEXOL 350 MG/ML 100 ML BTL (for Cath Lab) OTHER ONE (12:46)
--- NOTE | 2017-03-02 13:47 | PD.CAR.PN ---
CVT Progress Note Subjective/Hospital Course: sts data discussed with pt RISK SCORES About the STS Risk Calculator Procedure: CAB Only Risk of Mortality: 11.897% Morbidity or Mortality: 56.783% Long Length of Stay: 38.222% Short Length of Stay: 8.451% Permanent Stroke: 4.655% Prolonged Ventilation: 48.154% DSW Infection: 1.963% Renal Failure: 23.17% Reoperation: 14.669% Objective: Vital Signs Date Time Temp Pulse Resp B/P (MAP) Pulse Ox O2 Delivery O2 Flow Rate FiO2 03/02/17 13:00 66 03/02/17 12:00 67 03/02/17 11:00 67 03/02/17 11:00 98.2 67 16 118/76 (90) 97 03/02/17 10:00 67 03/02/17 09:56 95 Nasal Cannula 4.00 03/02/17 09:00 66 03/02/17 08:00 98.1 68 16 121/75 (90) 99 03/02/17 08:00 70 03/02/17 07:00 68 03/02/17 06:00 70 03/02/17 05:00 68 03/02/17 04:00 66 03/02/17 03:36 98.4 66 16 152/86 (108) 99 03/02/17 03:00 65 03/02/17 02:00 74 03/02/17 01:00 66 03/02/17 00:00 62 03/01/17 23:50 98.4 72 16 153/75 (101) 98 03/01/17 23:00 63 03/01/17 22:42 95 Nasal Cannula 3.00 03/01/17 22:00 64 03/01/17 21:00 70 03/01/17 20:17 98.3 71 16 159/81 (107) 99 03/01/17 20:00 71 03/01/17 19:00 66 03/01/17 18:00 70 03/01/17 17:00 72 03/01/17 16:00 72 03/01/17 15:00 71 03/01/17 15:00 97.4 73 18 140/66 (90) 96 03/01/17 14:00 74 Labs: Laboratory Tests Test 03/02/17 04:20 White Blood Count 17.8 TH/MM3 (4.0-11.0) Red Blood Count 4.57 MIL/MM3 (4.50-5.90) Hemoglobin 12.9 GM/DL (13.0-17.0) Hematocrit 39.8 % (39.0-51.0) Mean Corpuscular Volume 87.0 FL (80.0-100.0) Mean Corpuscular Hemoglobin 28.3 PG (27.0-34.0) Mean Corpuscular Hemoglobin Concent 32.5 % (32.0-36.0) Red Cell Distribution Width 14.7 % (11.6-17.2) Platelet Count 94 TH/MM3 (150-450) Mean Platelet Volume 10.2 FL (7.0-11.0) Neutrophils (%) (Auto) 94.8 % (16.0-70.0) Lymphocytes (%) (Auto) 2.4 % (9.0-44.0) Monocytes (%) (Auto) 2.1 % (0.0-8.0) Eosinophils (%) (Auto) 0.2 % (0.0-4.0) Basophils (%) (Auto) 0.5 % (0.0-2.0) Neutrophils # (Auto) 16.9 TH/MM3 (1.8-7.7) Lymphocytes # (Auto) 0.4 TH/MM3 (1.0-4.8) Monocytes # (Auto) 0.4 TH/MM3 (0-0.9) Eosinophils # (Auto) 0.0 TH/MM3 (0-0.4) Basophils # (Auto) 0.1 TH/MM3 (0-0.2) CBC Comment AUTO DIFF Differential Total Cells Counted 100 Neutrophils % (Manual) 93 % (16-70) Band Neutrophils % 2 % (0-6) Lymphocytes % 2 % (9-44) Monocytes % 2 % (0-8) Neutrophils # (Manual) 17.1 TH/MM3 (1.8-7.7) Myelocytes 1 % (0-0) Differential Comment FINAL DIFF MANUAL Platelet Estimate LOW (NORMAL) Platelet Morphology Comment NORMAL (NORMAL) Red Cell Morphology Comment NORMAL (NORMAL) Blood Urea Nitrogen 52 MG/DL (7-18) Creatinine 1.49 MG/DL (0.60-1.30) Random Glucose 184 MG/DL (74-106) Calcium Level 8.9 MG/DL (8.5-10.1) Sodium Level 141 MEQ/L (136-145) Potassium Level 4.5 MEQ/L (3.5-5.1) Chloride Level 105 MEQ/L (98-107) Carbon Dioxide Level 32.0 MEQ/L (21.0-32.0) Anion Gap 4 MEQ/L (5-15) Estimat Glomerular Filtration Rate 46 ML/MIN (>89) Result Diagram: 03/02/17 0420 03/02/17 0420 Rosamaria Logan Mar 02, 2017 13:47
--- NOTE | 2017-03-02 14:41 | MB ---
cc: VICKY CHURCHILL DATE OF CONSULTATION: 03/02/2017 1944 HISTORY OF PRESENT ILLNESS A 72-year-old male who presented after a fall at home. He says he has been having problems with balance and equilibrium. He apparently fell to the ground after losing his balance, was unable to get up for about 12 hours. He was able to finally drag himself to the phone to call . Troponin levels were checked in the hospital which were abnormal. His CK was also 846, leaning towards rhabdomyolysis. Troponin levels were 9.62. Apparently, he lives alone. He is not able to drive. He is very sedentary and unkempt, did not take good care of himself. He has also been complaining of shortness of breath for the last 12 weeks. Denied any recent fever or chills. He has got chronic venostasis with chronic cellulitis of his lower extremities. They did blood cultures on him on admission with 8 out of 8 blood cultures positive for gram-negative rods, grew out Morganella. He has been on IV antibiotics. He underwent cardiac cath by Dr. Thompson showing an ejection fraction of 30%, left main disease of 40%. Actually the IVUS was done and the left main was 62%. The ostial LAD 70%, mid LAD 75%, diagonal 95%, the RCA 95%. We were consulted to evaluate for coronary artery bypass grafting. He also had some urinary retention and had a Olmedo catheter placed by the direction of Dr. Arroyo, Urology. PAST MEDICAL HISTORY His past medical history also includes: 1. Left posterior capsule CVA in 2010. 2. Hypertension. 3. Hyperlipidemia. 4. Coronary artery disease with prior KS. 5. Stenting of the LAD. 6. History of ischemic cardiomyopathy with prior EF of 45%. OTHER SURGERIES Other surgeries include cholecystectomy. ALLERGIES Include AZITHROMYCIN, ERYTHROMYCIN, PENICILLIN. MEDICATIONS Home meds include: 1. Lipitor. 2. Aspirin. 3. Coreg. 4. Ramipril. 5. Plavix. 6. K-Dur. 7. Hydrochlorothiazide. FAMILY HISTORY Noncontributory. SOCIAL HISTORY Lives alone, , no children. 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 REVIEW OF SYSTEMS Review of systems as in the history of present illness, otherwise negative or noncontributory. Positive for chronic shortness of breath, lower extremity edema, chronic fatigue. PHYSICAL EXAMINATION Somewhat unkempt gentleman. VITAL SIGNS: Blood pressure 120/70, heart rate of 68, temperature max 98.2. GENERAL: Patient is awake. He is a little bit sleepy, however, is alert when talking to him. HEENT: His head is normocephalic, atraumatic. He is very unkempt. He has very poor dentition, multiple teeth are missing and loose. NECK: Supple. No JVD. HEART: Heart sounds S1-S2, regular rate and rhythm. No audible rubs, murmurs, gallops. LUNGS: Diminished in the bases, otherwise clear to auscultation. ABDOMEN: Abdomen is obese, soft, nontender. No masses or organomegaly. EXTREMITIES: Reveal chronic venostasis. He has got crusting and scabbing to his lower legs with thick hyperkeratotic tissue and crusts. He also has a wound on the right lateral portion of his ankle, 5 x 2 x 0.1 cm in diameter. He has significant edema to both lower extremities. LABORATORY DATA Recent lab work shows hemoglobin 12, hematocrit 39, white cell count of 17. He did come in with a white cell count of 27. Sodium 140, potassium 4.0, BUN 49, creatinine 1.81, AST 85, ALT 38, INR 1.4. Urinalysis of large leukocyte esterase. MRSA screen negative. Blood gas did show initially pH 735, CO2 of 50, pO2 of 245, that was on BiPAP. IMAGING STUDIES Abdominal CT and pelvis showed some atelectasis in the chest, some diverticulosis, markedly enlarged prostate gland, degenerative changes. Chest x-ray showed no focal infiltrates. They did check hip and pelvis after his fall, which showed no displaced fracture or dislocation. IMPRESSION This is a 72-year-old male with multivessel coronary disease, ejection fraction of 30% with STS risk of mortality 11.89%. The patient is very frail. He has limited mobility, poor dentition and poor self-care, also recent bacteremia. The patient is very high risk for any surgical intervention at this time. Recommend maximizing medical therapy. No plan on surgical intervention at this time. Dictated by: CHOCO Stephens Vicky MD DILIP Andrews/NITHYA /1:48 PM /2:38 PM
--- NOTE | 2017-03-02 19:31 | HHI.PR ---
Subjective Remarks On O2 at 3 L and comfortable.Leg edema is down. Has Critical CAD. Will need CABG No fever. On antibiotics per ID . Has UTI Objective Vital Signs Date Time Temp Pulse Resp B/P (MAP) Pulse Ox O2 Delivery O2 Flow Rate FiO2 03/02/17 18:00 65 03/02/17 17:00 64 03/02/17 16:16 94 Nasal Cannula 2.00 03/02/17 16:16 87 21 03/02/17 16:00 67 03/02/17 15:00 65 03/02/17 15:00 98.1 65 16 130/76 (94) 97 03/02/17 14:00 67 03/02/17 13:00 66 03/02/17 12:00 67 03/02/17 11:00 67 03/02/17 11:00 98.2 67 16 118/76 (90) 97 03/02/17 10:00 67 03/02/17 09:56 95 Nasal Cannula 4.00 03/02/17 09:00 66 03/02/17 08:00 98.1 68 16 121/75 (90) 99 03/02/17 08:00 70 03/02/17 07:00 68 03/02/17 06:00 70 03/02/17 05:00 68 03/02/17 04:00 66 03/02/17 03:36 98.4 66 16 152/86 (108) 99 03/02/17 03:00 65 03/02/17 02:00 74 03/02/17 01:00 66 03/02/17 00:00 62 03/01/17 23:50 98.4 72 16 153/75 (101) 98 03/01/17 23:00 63 03/01/17 22:42 95 Nasal Cannula 3.00 03/01/17 22:00 64 03/01/17 21:00 70 03/01/17 20:17 98.3 71 16 159/81 (107) 99 03/01/17 20:00 71 I/O 03/01/17 03/01/17 03/01/17 03/02/17 03/02/17 03/02/17 07:00 15:00 23:00 07:00 15:00 23:00 Intake Total 353 ml 65 ml 480 ml 480 ml 250 ml Output Total 975 ml 2450 ml 1650 ml 1200 ml Balance -622 ml 65 ml -1970 ml -1170 ml -950 ml Intake Oral 240 ml 480 ml 480 ml 250 ml IV Total 113 ml 65 ml Output Urine Total 975 ml 2450 ml 1650 ml 1200 ml # Bowel Movements 0 0 Result Diagram: 03/02/1741903/02/17419 Objective Remarks PHYSICAL EXAMINATION GENERAL: This is an obese, elderly white male who is alert. He is stable. There is no peripheral cyanosis. HEENT: Head normocephalic. Pupils reactive. Tongue moist. Throat is clear. Nasal mucosae edematous. NECK: Supple. No bruits or thyroid enlargement. CHEST: Equal movements with expiratory wheezes throughout both lung hancock. No crackles. CARDIOVASCULAR: Heart sounds are Irregular. S1-S2. No murmur. ABDOMEN: Soft , benign. No mass. No organomegaly. EXTREMITIES: 1 + edema and Induration of skin. NEUROLOGIC: Reflexes 1+ with no gross motor deficits. . Assessment and Plan Assessment and Plan IMPRESSION 1. Chronic bronchitis.COPD 2. History of hypertension. 3. Acute respiratory failure 4. NSTEMI. 5. H/O Coronary Artery disease. 6. Sepsis/ UTI/Pneumonia 7. Chronic Lymphedema Plan : 1. wean O2 to 2 L 2. Continue Nebs qid , duoneb. 3. Cont Levaquin IV 4. CBC,BMP in am. 5. CT surgery evaluation 6. Symbicort 160/4.5 mcg , 2 puffs bid. 7. PFT at bedside 8. Continue anticoagulants Tosha Hightower MD Mar 02, 2017 19:31
[2017-03-02] MEDS: ATORVASTATIN 40 MG TAB PO SCH (20:44)
[2017-03-02] MEDS: LEVOFLOXACIN 500 MG PREMIX INJ 100 ML IV SCH (20:45)
[2017-03-03] VITALS (21 sets, daily range): BP systolic 137–157; BP diastolic 66–85; PULSE 60–70; RESP 18–20; TEMP 97.7–98.3; O2SAT 92–98
[2017-03-03] MEDS: CHLORHEXIDINE GLUCONATE 2 % 1 PACK (2 CLOTHS) TOP SCH (04:00)
[2017-03-03] MEDS: HEPARIN-D5W 25,000 U/250 ML 250 ML IV PRN (04:54)
[2017-03-03 05:47] LABS: MAGNESIUM 2.1 MG/DL (1.5-2.5); POTASSIUM 4.5 MEQ/L (3.5-5.1)
[2017-03-03 05:48] LABS: MEAN CELL VOLUME 86.6 FL (80.0-100.0); MEAN CORPUSCULAR HEMOGLOBIN 28.3 PG (27.0-34.0); MEAN CORPUSCULAR HGB CONC 32.7 % (32.0-36.0); PLATELET COUNT 89 TH/MM3 (150-450); RED BLOOD COUNT 4.39 MIL/MM3 (4.50-5.90); RED CELL DISTRIBUTION WIDTH 14.7 % (11.6-17.2); WHITE BLOOD COUNT 15.7 TH/MM3 (4.0-11.0)
[2017-03-03 05:49] LABS: APTT (PATIENT) 67.4 SEC (24.3-30.1)
[2017-03-03 05:52] LABS: REVIEW FLAG FINAL
--- NOTE | 2017-03-03 07:31 | PD.CARD.PN ---
Subjective Subjective Remarks Resting comfortably. Denies dyspnea, CP, dizziness, palpitations, wrist pain. Slept well. Objective Medications Item Value Date Time Amiodarone HCl 200 mg 03/02/17 09 (Cordarone) DAILY/PO 03/02/17922 Carvedilol 25 mg 03/02/17 09 (Coreg) BID/PO 03/02/172043 Atorvastatin 40 mg 02/24/172099 Calcium HS/PO 03/02/172043 (Lipitor) Aspirin 325 mg 02/24/17899 (Ecotrin Ec) DAILY/PO 03/02/17922 Heparin Sodium/ 250 ml @ 10 mls/hr 02/23/171999 Dextrose TITRATE PRN/IV 03/03/17 0454 Current Medications Medications (Trade) Dose Ordered Sig/Alexandro Route Start Time Stop Time Status Last Admin (Nitrostat Sl) 0.4 mg Q5M PRN SL 02/23/17 19:45 (Percocet 5-325 Mg) 1 tab Q6H PRN PO 02/23/17 19:45 Future Hold (NS Flush) 2 ml UNSCH PRN IV FLUSH 02/23/17 19:45 (NS Flush) 2 ml BID IV FLUSH 02/23/17 21:00 03/02/17 21:00 (Tylenol) 650 mg Q6H PRN PO 02/23/17 19:45 (Zofran Inj) 4 mg Q6H PRN IV PUSH 02/23/17 19:45 (Duoneb Neb) 1 ampule Q2HR NEB PRN INH 02/23/17 19:45 Miscellaneous Information 1 Q361D XX 02/23/17 19:45 (Chlorhexidine 2% Cloth) Taper DAILY@04 TOP 02/24/17 04:00 02/20/18 03:59 02/26/17 03:59 (Chlorhexidine 2% Cloth) 3 pack UNSCH PRN TOP 02/23/17 19:45 (Roxanne-Colace) 1 tab BID PO 02/23/17 21:00 03/02/17 20:45 (Milk Of Magnesia Liq) 30 ml Q12H PRN PO 02/23/17 19:45 (Senokot) 17.2 mg Q12H PRN PO 02/23/17 19:45 (Dulcolax Supp) 10 mg DAILY PRN RECTAL 02/23/17 19:45 (Lactulose Liq) 30 ml DAILY PRN PO 02/23/17 19:45 (Ecotrin Ec) 325 mg DAILY PO 02/24/17 09:00 03/02/17 09:23 (Heparin Inj) 5,000 units UNSCH PRN IV PUSH 02/24/17 02:00 (Heparin Inj) 2,500 units UNSCH PRN IV PUSH 02/24/17 02:00 Heparin Sodium/ Dextrose 250 ml @ 10 mls/hr TITRATE PRN IV 02/23/17 20:00 03/03/17 04:54 (Lipitor) 40 mg HS PO 02/24/17 21:00 03/02/17 20:44 (SoluMEDROL INJ) 40 mg BID IV 02/26/17 21:00 03/02/17 20:45 (Flomax) 0.4 mg DAILY PO 02/27/17 09:00 03/02/17 09:23 Levofloxacin/ Dextrose 100 ml @ 100 mls/hr Q24H IV 02/27/17 21:00 03/10/17 23:55 03/02/17 20:45 (Lac-Hydrin 12% Lotion) 1 applic BID TOPICAL 03/01/17 21:00 03/02/17 20:45 (Cordarone) 200 mg DAILY PO 03/02/17 09:00 03/02/17 09:23 (Coreg) 25 mg BID PO 03/02/17 09:00 03/02/17 20:44 (Miralax) 17 gm DAILY PO 03/02/17 09:30 03/02/17 09:30 (Morphine Inj) 2 mg Q2H PRN IV PUSH 03/02/17 10:00 Vital Signs / I&O Vital Signs Date Time Temp Pulse Resp B/P (MAP) Pulse Ox O2 Delivery O2 Flow Rate FiO2 03/03/17 06:00 63 03/03/17 03:00 98.3 60 20 137/66 (89) 94 03/03/17 03:00 60 03/02/17 23:00 60 03/02/17 23:00 98.1 60 22 128/75 (92) 95 03/02/17 20:00 96 Nasal Cannula 2.00 03/02/17 19:00 60 03/02/17 19:00 97.5 60 18 149/72 (97) 99 03/02/17 18:00 65 03/02/17 17:00 64 03/02/17 16:16 94 Nasal Cannula 2.00 03/02/17 16:16 87 21 03/02/17 16:00 67 03/02/17 15:00 65 03/02/17 15:00 98.1 65 16 130/76 (94) 97 03/02/17 14:00 67 03/02/17 13:00 66 03/02/17 12:00 67 03/02/17 11:00 67 03/02/17 11:00 98.2 67 16 118/76 (90) 97 03/02/17 10:00 67 03/02/17 09:56 95 Nasal Cannula 4.00 03/02/17 09:00 66 03/02/17 08:00 98.1 68 16 121/75 (90) 99 03/02/17 08:00 70 I/O 03/02/17 03/02/17 03/02/17 03/03/17 03/03/17 03/03/17 07:00 15:00 23:00 07:00 15:00 23:00 Intake Total 480 ml 250 ml 240 ml Output Total 1650 ml 1200 ml 700 ml Balance -1170 ml -950 ml -460 ml Intake Oral 480 ml 250 ml 240 ml Output Urine Total 1650 ml 1200 ml 700 ml # Bowel Movements 2 Physical Exam GENERAL: Well developed, well nourished. No acute distress. HEENT: Jugular venous pressure very difficult to assess. CHEST: Lungs clear to auscultation anteriorly. CARDIAC: Regular rate and rhythm without S3, S4, I-II/ NEMO RUSB with mildly diminished S2. ABDOMEN: Soft, nontender, no hepatosplenomegaly. Bowel sounds present. EXTREMITIES: No clubbing, cyanosis, or edema. Chronic venous stasis changes. Laboratory Laboratory Tests Test 03/03/17 05:09 White Blood Count 15.7 TH/MM3 Red Blood Count 4.39 MIL/MM3 Hemoglobin 12.4 GM/DL Hematocrit 38.0 % Mean Corpuscular Volume 86.6 FL Mean Corpuscular Hemoglobin 28.3 PG Mean Corpuscular Hemoglobin Concent 32.7 % Red Cell Distribution Width 14.7 % Platelet Count 89 TH/MM3 Mean Platelet Volume 10.7 FL Activated Partial Thromboplast Time 67.4 SEC Blood Urea Nitrogen 47 MG/DL Creatinine 1.19 MG/DL Random Glucose 186 MG/DL Calcium Level 8.8 MG/DL Magnesium Level 2.1 MG/DL Sodium Level 142 MEQ/L Potassium Level 4.5 MEQ/L Chloride Level 106 MEQ/L Carbon Dioxide Level 33.0 MEQ/L Anion Gap 3 MEQ/L Estimat Glomerular Filtration Rate 60 ML/MIN Assessment and Plan Problem List: (1) Non-ST elevation IA (NSTEMI) ICD Codes: I21.4 - Non-ST elevation (NSTEMI) myocardial infarction Status: Acute Plan: Stable overnight. Cath shows diffusely disease vessels with IVUS imaging confirming moderate to severe left main disease, severe ostial and mid LAD disease though with patent proximal stent, severe diagonal disease, severe restenosis of PL branch stent, EF 30%. Patient high risk candidate for CABG with his comorbid conditions. Dr. Kovacs consult noted and appreciated. REC continue medical therapy of his CAD; OK for discharge from cardiac standpoint, 3-4 week f/u with me continue beta kelsie, ASA; no STEVAN-I for now with his renal insufficiency resume Plavix (2) Paroxysmal supraventricular tachycardia ICD Codes: I47.1 - Supraventricular tachycardia Status: Acute Plan: Initial admission EKG's suboptimal, possible SVT. Stable since admission. No further atrial tachycardia (cannot rule out atrial fib). Continue beta kelsie, oral Amiodarone. (3) Hypertension ICD Codes: I10 - Essential (primary) hypertension Status: Chronic Plan: Better BP's overall. Rec outpatient f/u and medication adjustment. (4) Ischemic cardiomyopathy ICD Codes: I25.5 - Ischemic cardiomyopathy Status: Chronic Plan: EF seems closer to 30% by cath. Rec continue current medical regimen. Stressed importance of low sodium diet. Code Status full code Discussed Condition With patient Problem Qualifiers (1) Hypertension: Qualified Codes: I10 - Essential (primary) hypertension Diallo Thompson MD Mar 03, 2017 07:31
[2017-03-03] MEDS: LACTIC ACID (AMMONIUM LACTATE) 12% LOTION 225 GM BTL TOPICAL SCH ×2 (08:44→21:44)
[2017-03-03] MEDS: methylPREDNISolone SOD SUCC 40 MG/1 ML VIAL IV SCH (08:45)
[2017-03-03] MEDS: TAMSULOSIN HCL 0.4 MG CAP PO SCH (08:45)
[2017-03-03] MEDS: AMIODARONE 200 MG TAB PO SCH (08:46)
[2017-03-03] MEDS: CARVEDILOL 12.5 MG TAB PO SCH ×2 (08:46→21:44)
[2017-03-03] MEDS: CLOPIDOGREL 75 MG TAB PO SCH (08:46)
[2017-03-03] MEDS: ASPIRIN EC 325 MG TABEC PO SCH (08:46)
[2017-03-03] MEDS: POLYETHYLENE GLYCOL 17 GM PKG PO SCH (08:46)
[2017-03-03] MEDS: DOCUSATE SODIUM 50 MG/SENNA 8.6 MG TAB PO SCH ×2 (08:46→21:00)
[2017-03-03] MEDS: SODIUM CHLORIDE 0.9% FLUSH 10 ML FLUSH IV FLUSH SCH ×2 (08:47→21:43)
--- NOTE | 2017-03-03 10:49 | HHI.PR ---
Subjective Remarks The patient was sitting up in bed. His nurse was at the bedside. The patient said that he feels he would be too weak to go home. He does live alone. He had no other acute concerns at this time. Objective Vitals Vital Signs Date Time Temp Pulse Resp B/P (MAP) Pulse Ox O2 Delivery O2 Flow Rate FiO2 03/03/17 09:00 92 Nasal Cannula 2.00 03/03/17 07:40 60 03/03/17 07:40 98.1 60 20 156/85 (108) 97 03/03/17 06:00 63 03/03/17 03:00 98.3 60 20 137/66 (89) 94 03/03/17 03:00 60 03/02/17 23:00 60 03/02/17 23:00 98.1 60 22 128/75 (92) 95 03/02/17 20:00 96 Nasal Cannula 2.00 03/02/17 19:00 60 03/02/17 19:00 97.5 60 18 149/72 (97) 99 03/02/17 18:00 65 03/02/17 17:00 64 03/02/17 16:16 94 Nasal Cannula 2.00 03/02/17 16:16 87 21 03/02/17 16:00 67 03/02/17 15:00 65 03/02/17 15:00 98.1 65 16 130/76 (94) 97 03/02/17 14:00 67 03/02/17 13:00 66 03/02/17 12:00 67 03/02/17 11:00 67 03/02/17 11:00 98.2 67 16 118/76 (90) 97 I/O 03/02/17 03/02/17 03/02/17 03/03/17 03/03/17 03/03/17 07:00 15:00 23:00 07:00 15:00 23:00 Intake Total 480 ml 250 ml 240 ml Output Total 1650 ml 1200 ml 700 ml Balance -1170 ml -950 ml -460 ml Intake Oral 480 ml 250 ml 240 ml Output Urine Total 1650 ml 1200 ml 700 ml # Bowel Movements 2 Result Diagram: 03/03/17 05003/03/17 050 Imaging Last Impressions Chest X-Ray 02/27/17 06 Signed Impressions: Service Date/Time: Monday, February 27, 2017 04:56 - CONCLUSION: Mild right hemidiaphragm elevation. No significant interval change. Moise Carpenter MD Abdomen/Pelvis CT 02/25/17 0000 Signed Impressions: Service Date/Time: Saturday, February 25, 2017 12:11 - CONCLUSION: 1. Posterior bibasilar patchiness consistent with atelectasis and/or mild infiltrates. 2. Tiny bilateral pleural effusions. 3. Uncomplicated colonic diverticulosis. 4. Markedly enlarged prostate gland. 5. Small midline ventral abdominal wall hernia containing only fat. 6. Bilobed infrarenal abdominal aortic aneurysm which measures 3.4 cm in greatest dimension. 7. Degenerative changes and scoliosis of the thoraco-lumbar spine. Vinnie Montemayor MD Hip and Pelvis X-Ray 02/23/17 0000 Signed Impressions: Service Date/Time: Thursday, February 23, 2017 18:25 - CONCLUSION: 1. Suboptimal exam due to patient size. No displaced fracture or dislocation identified. Helder Hernandez MD Objective Remarks GENERAL: NAD SKIN: Erythema and dermatitis of venous stasis on lower extremities. HEAD: Normocephalic. EYES: No scleral icterus. No injection or drainage. NECK: Supple, trachea midline. No JVD or lymphadenopathy. CARDIOVASCULAR: Regular rate and rhythm without murmurs, gallops, or rubs. RESPIRATORY: Breath sounds equal bilaterally. No accessory muscle use. GASTROINTESTINAL: Abdomen soft, non-tender, nondistended. +BS. MUSCULOSKELETAL: Upper and lower extremity edema noted. BACK: Nontender without obvious deformity. No CVA tenderness. NEURO: No gross deficits. PSYCH: Mood and affect appropriate. Medications and IVs Current Medications Medications (Trade) Dose Ordered Sig/Alexandro Route Start Time Stop Time Status Last Admin (Nitrostat Sl) 0.4 mg Q5M PRN SL 02/23/17 19:45 (Percocet 5-325 Mg) 1 tab Q6H PRN PO 02/23/17 19:45 Future Hold (NS Flush) 2 ml UNSCH PRN IV FLUSH 02/23/17 19:45 (NS Flush) 2 ml BID IV FLUSH 02/23/17 21:00 03/03/17 08:47 (Tylenol) 650 mg Q6H PRN PO 02/23/17 19:45 (Zofran Inj) 4 mg Q6H PRN IV PUSH 02/23/17 19:45 (Duoneb Neb) 1 ampule Q2HR NEB PRN INH 02/23/17 19:45 Miscellaneous Information 1 Q361D XX 02/23/17 19:45 (Chlorhexidine 2% Cloth) Taper DAILY@04 TOP 02/24/17 04:00 02/20/18 03:59 02/26/17 03:59 (Chlorhexidine 2% Cloth) 3 pack UNSCH PRN TOP 02/23/17 19:45 (Roxanne-Colace) 1 tab BID PO 02/23/17 21:00 03/03/17 08:46 (Milk Of Magnesia Liq) 30 ml Q12H PRN PO 02/23/17 19:45 (Senokot) 17.2 mg Q12H PRN PO 02/23/17 19:45 (Dulcolax Supp) 10 mg DAILY PRN RECTAL 02/23/17 19:45 (Lactulose Liq) 30 ml DAILY PRN PO 02/23/17 19:45 (Ecotrin Ec) 325 mg DAILY PO 02/24/17 09:00 03/03/17 08:46 (Heparin Inj) 5,000 units UNSCH PRN IV PUSH 02/24/17 02:00 (Heparin Inj) 2,500 units UNSCH PRN IV PUSH 02/24/17 02:00 (Lipitor) 40 mg HS PO 02/24/17 21:00 03/02/17 20:44 (SoluMEDROL INJ) 40 mg BID IV 02/26/17 21:00 03/03/17 08:45 (Flomax) 0.4 mg DAILY PO 02/27/17 09:00 03/03/17 08:45 Levofloxacin/ Dextrose 100 ml @ 100 mls/hr Q24H IV 02/27/17 21:00 03/10/17 23:55 03/02/17 20:45 (Lac-Hydrin 12% Lotion) 1 applic BID TOPICAL 03/01/17 21:00 03/03/17 08:44 (Cordarone) 200 mg DAILY PO 03/02/17 09:00 03/03/17 08:46 (Coreg) 25 mg BID PO 03/02/17 09:00 03/03/17 08:46 (Miralax) 17 gm DAILY PO 03/02/17 09:30 03/02/17 09:30 (Morphine Inj) 2 mg Q2H PRN IV PUSH 03/02/17 10:00 (Plavix) 75 mg DAILY PO 03/03/17 09:00 03/03/17 08:46 A/P Problem List: (1) Non-ST elevation [place] (NSTEMI) ICD Code: I21.4 - Non-ST elevation (NSTEMI) myocardial infarction Status: Acute (2) Severe sepsis ICD Code: A41.9 - Sepsis, unspecified organism; R65.20 - Severe sepsis without septic shock Status: Acute (3) Hypertension ICD Code: I10 - Essential (primary) hypertension Status: Chronic (4) Ischemic cardiomyopathy ICD Code: I25.5 - Ischemic cardiomyopathy Status: Chronic (5) Paroxysmal supraventricular tachycardia ICD Code: I47.1 - Supraventricular tachycardia Status: Acute Assessment and Plan CAD Cath 03/02 showed: diffusely diseased vessels with IVUS imaging confirming moderate to severe left main disease, severe ostial and mid LAD disease though with patent proximal stent, severe diagonal disease, severe restenosis of PL branch stent, EF 30%. CT surgery consult appreciated. Pt is too high a risk for surgery. - Continue ASA, Lipitor, Coreg, amiodarone and heparin. Hold Plavix. - follow up with cardiology. Cleared for discharge. - telemetry. - PT/ OT for deconditioning. COPD Pulmonology consult appreciated. Breathing status improved. - Continue with oxygen keep sat >92% - Bronchodilators. - Currently on antibiotics. Follow up with pulmonology. Wean steroids. BPH CT abdomen/pelvis: colonic diverticulosis. Markedly enlarged prostate gland.. Small midline ventral abdominal wall hernia containing only fat. Bilobed infrarenal abdominal aortic aneurysm which measures 3.4 cm in greatest dimension. Urology consult appreciated. - Flomax 0.4mg QD. - Olmedo. Continue until outpt follow-up with urology. Bacteremia BC from 02/23: Eloise Brunner, follow up on urine cx- NGTD, sputum cx: normal resp susu. - Continue with abx ( Aztreonam, Levaquin switched to Levaquin per ID). - Wound service is following for Chronic venous stasis Acute on chronic renal failure Improved. - hold ACEi. Consider resuming. - follow BMP and avoid nephrotoxic agents. GI prophylaxis- on Pepcid DVT prophylaxis- On Heparin Discharge Planning Pt will need SNF placement, anticipate 1-2 days Problem Qualifiers (1) Hypertension: Qualified Codes: I10 - Essential (primary) hypertension Bert Vargas DO Mar 03, 2017 10:49
[2017-03-03] MEDS: HEPARIN SODIUM - SQ 10,000 UNITS/ML VIAL SQ SCH ×2 (13:46→21:44)
--- NOTE | 2017-03-03 20:09 | HHI.PR ---
Subjective Remarks On O2 at 3 L and feels better..Leg edema is down. Will have medical management No fever. On antibiotics per ID . Objective Vital Signs Date Time Temp Pulse Resp B/P (MAP) Pulse Ox O2 Delivery O2 Flow Rate FiO2 03/03/17 18:00 64 03/03/17 17:00 66 03/03/17 16:00 64 03/03/17 15:30 97.7 63 18 157/79 (105) 98 03/03/17 15:30 63 03/03/17 15:00 64 03/03/17 14:00 62 03/03/17 13:00 66 03/03/17 12:00 66 03/03/17 11:30 98.3 69 20 152/69 (96) 96 03/03/17 11:30 69 03/03/17 11:00 66 03/03/17 10:00 64 03/03/17 09:00 92 Nasal Cannula 2.00 03/03/17 09:00 70 03/03/17 08:00 64 03/03/17 07:40 60 03/03/17 07:40 98.1 60 20 156/85 (108) 97 03/03/17 06:00 63 03/03/17 03:00 98.3 60 20 137/66 (89) 94 03/03/17 03:00 60 03/02/17 23:00 60 03/02/17 23:00 98.1 60 22 128/75 (92) 95 I/O 03/02/17 03/02/17 03/02/17 03/03/17 03/03/17 03/03/17 07:00 15:00 23:00 07:00 15:00 23:00 Intake Total 480 ml 250 ml 240 ml 908 ml Output Total 1650 ml 1200 ml 700 ml 775 ml Balance -1170 ml -950 ml -460 ml 133 ml Intake Oral 480 ml 250 ml 240 ml 860 ml IV Total 48 ml Output Urine Total 1650 ml 1200 ml 700 ml 775 ml # Bowel Movements 2 1 Result Diagram: 03/03/17 0509 03/03/17 0509 Objective Remarks PHYSICAL EXAMINATION GENERAL: This is an obese, elderly white male who is alert. He is stable. There is no cyanosis. HEENT: Head normocephalic. Pupils reactive. Tongue moist. Throat is clear. Nasal mucosae edematous. NECK: Supple. No bruits or thyroid enlargement. CHEST: Equal movements with expiratory wheezes throughout both lung hancock. No crackles. CARDIOVASCULAR: Heart sounds are Irregular. S1-S2. No murmur. ABDOMEN: Soft , benign. No mass. No organomegaly. EXTREMITIES: 1 + edema and Induration of skin. NEUROLOGIC: Reflexes 1+ with no gross motor deficits. . Assessment and Plan Assessment and Plan IMPRESSION 1. Chronic bronchitis.COPD 2. History of hypertension. 3. Acute respiratory failure 4. NSTEMI. 5. H/O Coronary Artery disease. 6. Sepsis/ UTI/Pneumonia 7. Chronic Lymphedema Plan : 1. wean O2 to 2 L 2. Continue Nebs qid , duoneb. 3. PT for ambulation 4. CXR in am 5. Continue anticoagulants 6. Symbicort 160/4.5 mcg , 2 puffs bid. 7. PFT at bedside Tosha Hightower MD Mar 03, 2017 20:09
[2017-03-03] MEDS ORDERED: predniSONE 20 MG TAB PO SCH (21:00)
[2017-03-03] MEDS: LEVOFLOXACIN 500 MG PREMIX INJ 100 ML IV SCH (21:43)
[2017-03-03] MEDS: ATORVASTATIN 40 MG TAB PO SCH (21:43)
[2017-03-04] VITALS (25 sets, daily range): BP systolic 126–161; BP diastolic 60–79; PULSE 54–76; RESP 16–20; TEMP 97.5–98.3; O2SAT 93–98
[2017-03-04] MEDS: CHLORHEXIDINE GLUCONATE 2 % 1 PACK (2 CLOTHS) TOP SCH (04:00)
[2017-03-04] MEDS: RESP: ALBUTEROL 2.5 MG/IPRATROPIUM 0.5 MG NEB (PRN) INH ×2 (04:14→14:25)
[2017-03-04 06:15] LABS: HEMATOCRIT 38.8 % (39.0-51.0); MEAN CELL VOLUME 88.1 FL (80.0-100.0); MEAN CORPUSCULAR HEMOGLOBIN 28.3 PG (27.0-34.0); MEAN CORPUSCULAR HGB CONC 32.2 % (32.0-36.0); PLATELET COUNT 104 TH/MM3 (150-450); RED BLOOD COUNT 4.41 MIL/MM3 (4.50-5.90); RED CELL DISTRIBUTION WIDTH 14.9 % (11.6-17.2); REVIEW FLAG FINAL; WHITE BLOOD COUNT 17.7 TH/MM3 (4.0-11.0)
[2017-03-04] MEDS: HEPARIN SODIUM - SQ 10,000 UNITS/ML VIAL SQ SCH ×3 (06:30→21:58)
[2017-03-04] MEDS: LACTIC ACID (AMMONIUM LACTATE) 12% LOTION 225 GM BTL TOPICAL SCH ×2 (09:00→22:00)
[2017-03-04] MEDS: predniSONE 10 MG TAB PO SCH (09:00)
[2017-03-04] MEDS: TAMSULOSIN HCL 0.4 MG CAP PO SCH (09:12)
[2017-03-04] MEDS: CLOPIDOGREL 75 MG TAB PO SCH (09:12)
[2017-03-04] MEDS: ASPIRIN EC 325 MG TABEC PO SCH (09:12)
[2017-03-04] MEDS: CARVEDILOL 12.5 MG TAB PO SCH ×2 (09:13→22:00)
[2017-03-04] MEDS: DOCUSATE SODIUM 50 MG/SENNA 8.6 MG TAB PO SCH ×2 (09:13→22:00)
[2017-03-04] MEDS: SODIUM CHLORIDE 0.9% FLUSH 10 ML FLUSH IV FLUSH SCH ×2 (09:13→21:00)
[2017-03-04] MEDS: POLYETHYLENE GLYCOL 17 GM PKG PO SCH (09:13)
[2017-03-04] MEDS: AMIODARONE 200 MG TAB PO SCH (09:13)
--- NOTE | 2017-03-04 15:53 | HHI.PR ---
Subjective Remarks The patient still admits to feeling too weak to go home. He did seem interested in pursuing rehabilitation. No acute concerns at this time. Objective Vitals Vital Signs Date Time Temp Pulse Resp B/P (MAP) Pulse Ox O2 Delivery O2 Flow Rate FiO2 03/04/17 15:00 98.1 61 16 126/79 (95) 96 03/04/17 15:00 61 03/04/17 14:00 64 03/04/17 13:00 65 03/04/17 12:00 64 03/04/17 11:00 97.6 60 16 134/74 (94) 97 03/04/17 11:00 60 03/04/17 10:00 64 03/04/17 09:00 68 03/04/17 08:30 93 Nasal Cannula 2.00 03/04/17 08:00 98.3 76 16 139/63 (88) 98 03/04/17 08:00 76 03/04/17 06:00 56 03/04/17 05:00 55 03/04/17 04:00 54 03/04/17 03:30 97.5 60 20 146/75 (98) 98 03/04/17 03:00 57 03/04/17 02:00 57 03/04/17 01:00 60 03/04/17 00:00 64 03/04/17 00:00 97.8 64 18 128/60 (82) 96 03/03/17 23:00 66 03/03/17 22:00 66 03/03/17 21:22 Nasal Cannula 2.00 03/03/17 21:00 62 03/03/17 20:00 68 03/03/17 20:00 97.8 64 20 154/67 (96) 97 03/03/17 19:00 64 03/03/17 18:00 64 03/03/17 17:00 66 03/03/17 16:00 64 I/O 03/03/17 03/03/17 03/03/17 03/04/17 03/04/17 03/04/17 07:00 15:00 23:00 07:00 15:00 23:00 Intake Total 240 ml 908 ml 340 ml Output Total 700 ml 775 ml 650 ml Balance -460 ml 133 ml -310 ml Intake Oral 240 ml 860 ml 240 ml IV Total 48 ml 100 ml Output Urine Total 700 ml 775 ml 650 ml # Bowel Movements 2 1 0 Result Diagram: 03/04/17 0530 03/03/17 0509 Imaging Last Impressions Chest X-Ray 02/27/17 0600 Signed Impressions: Service Date/Time: Monday, February 27, 2017 04:56 - CONCLUSION: Mild right hemidiaphragm elevation. No significant interval change. Moise Carpenter MD Abdomen/Pelvis CT 02/25/17 0000 Signed Impressions: Service Date/Time: Saturday, February 25, 2017 12:11 - CONCLUSION: 1. Posterior bibasilar patchiness consistent with atelectasis and/or mild infiltrates. 2. Tiny bilateral pleural effusions. 3. Uncomplicated colonic diverticulosis. 4. Markedly enlarged prostate gland. 5. Small midline ventral abdominal wall hernia containing only fat. 6. Bilobed infrarenal abdominal aortic aneurysm which measures 3.4 cm in greatest dimension. 7. Degenerative changes and scoliosis of the thoraco-lumbar spine. Vinnie Montemayor MD Hip and Pelvis X-Ray 02/23/17 0000 Signed Impressions: Service Date/Time: Thursday, February 23, 2017 18:25 - CONCLUSION: 1. Suboptimal exam due to patient size. No displaced fracture or dislocation identified. Helder Hernandez MD Objective Remarks GENERAL: NAD SKIN: Erythema and dermatitis of venous stasis on lower extremities. HEAD: Normocephalic. EYES: No scleral icterus. No injection or drainage. NECK: Supple, trachea midline. No JVD or lymphadenopathy. CARDIOVASCULAR: Regular rate and rhythm without murmurs, gallops, or rubs. RESPIRATORY: Breath sounds equal bilaterally. No accessory muscle use. GASTROINTESTINAL: Abdomen soft, non-tender, nondistended. +BS. MUSCULOSKELETAL: Upper and lower extremity edema noted. BACK: Nontender without obvious deformity. No CVA tenderness. NEURO: No gross deficits. PSYCH: Mood and affect appropriate. Medications and IVs Current Medications Medications (Trade) Dose Ordered Sig/Alexandro Route Start Time Stop Time Status Last Admin (Nitrostat Sl) 0.4 mg Q5M PRN SL 02/23/17 19:45 (Percocet 5-325 Mg) 1 tab Q6H PRN PO 02/23/17 19:45 Future Hold (NS Flush) 2 ml UNSCH PRN IV FLUSH 02/23/17 19:45 (NS Flush) 2 ml BID IV FLUSH 02/23/17 21:00 03/04/17 09:13 (Tylenol) 650 mg Q6H PRN PO 02/23/17 19:45 (Zofran Inj) 4 mg Q6H PRN IV PUSH 02/23/17 19:45 (Duoneb Neb) 1 ampule Q2HR NEB PRN INH 02/23/17 19:45 03/04/17 14:25 Miscellaneous Information 1 Q361D XX 02/23/17 19:45 (Chlorhexidine 2% Cloth) Taper DAILY@04 TOP 02/24/17 04:00 02/20/18 03:59 02/26/17 03:59 (Chlorhexidine 2% Cloth) 3 pack UNSCH PRN TOP 02/23/17 19:45 (Roxanne-Colace) 1 tab BID PO 02/23/17 21:00 03/04/17 09:13 (Milk Of Magnesia Liq) 30 ml Q12H PRN PO 02/23/17 19:45 (Senokot) 17.2 mg Q12H PRN PO 02/23/17 19:45 (Dulcolax Supp) 10 mg DAILY PRN RECTAL 02/23/17 19:45 (Lactulose Liq) 30 ml DAILY PRN PO 02/23/17 19:45 (Ecotrin Ec) 325 mg DAILY PO 02/24/17 09:00 03/04/17 09:12 (Lipitor) 40 mg HS PO 02/24/17 21:00 03/03/17 21:43 (Flomax) 0.4 mg DAILY PO 02/27/17 09:00 03/04/17 09:12 Levofloxacin/ Dextrose 100 ml @ 100 mls/hr Q24H IV 02/27/17 21:00 03/10/17 23:55 03/03/17 21:43 (Lac-Hydrin 12% Lotion) 1 applic BID TOPICAL 03/01/17 21:00 03/04/17 09:00 (Cordarone) 200 mg DAILY PO 03/02/17 09:00 03/04/17 09:13 (Coreg) 25 mg BID PO 03/02/17 09:00 03/04/17 09:13 (Miralax) 17 gm DAILY PO 03/02/17 09:30 12/20/17 09:13 (Morphine Inj) 2 mg Q2H PRN IV PUSH 03/02/17 10:00 (Plavix) 75 mg DAILY PO 03/03/17 09:00 03/04/17 09:12 (Heparin Inj) 5,000 units Q8HR SQ 03/03/17 14:00 03/04/17 14:07 (Deltasone) 30 mg DAILY PO 03/04/17 09:00 03/04/17 09:00 A/P Problem List: (1) Non-ST elevation [place] (NSTEMI) ICD Code: I21.4 - Non-ST elevation (NSTEMI) myocardial infarction Status: Acute (2) Severe sepsis ICD Code: A41.9 - Sepsis, unspecified organism; R65.20 - Severe sepsis without septic shock Status: Acute (3) Hypertension ICD Code: I10 - Essential (primary) hypertension Status: Chronic (4) Ischemic cardiomyopathy ICD Code: I25.5 - Ischemic cardiomyopathy Status: Chronic (5) Paroxysmal supraventricular tachycardia ICD Code: I47.1 - Supraventricular tachycardia Status: Acute Assessment and Plan CAD Cath 03/02 showed: diffusely diseased vessels with IVUS imaging confirming moderate to severe left main disease, severe ostial and mid LAD disease though with patent proximal stent, severe diagonal disease, severe restenosis of PL branch stent, EF 30%. CT surgery consult appreciated. Pt is too high a risk for surgery. - Continue ASA, Lipitor, Coreg, amiodarone and heparin. Resume Plavix. - follow up with cardiology. Cleared for discharge. - telemetry. - PT/ OT for deconditioning. CM assisting with SNF placement. COPD Pulmonology consult appreciated. Breathing status improved. - Continue with oxygen keep sat >92% - Bronchodilators. - Currently on antibiotics. Follow up with pulmonology. Wean steroids. BPH CT abdomen/pelvis: colonic diverticulosis. Markedly enlarged prostate gland.. Small midline ventral abdominal wall hernia containing only fat. Bilobed infrarenal abdominal aortic aneurysm which measures 3.4 cm in greatest dimension. Urology consult appreciated. - Flomax 0.4mg QD. - Olmedo. Continue until outpt follow-up with urology. Bacteremia BC from 02/23: Eloise Brunner, follow up on urine cx- NGTD, sputum cx: normal resp susu. - Continue with abx ( Aztreonam, Levaquin switched to Levaquin per ID). - Wound service is following for Chronic venous stasis Acute on chronic renal failure Improved. - hold ACEi. Consider resuming. - follow BMP and avoid nephrotoxic agents. GI prophylaxis- on Pepcid DVT prophylaxis- On Heparin Discharge Planning Pt will need SNF placement, possible d/c in AM Problem Qualifiers (1) Hypertension: Qualified Codes: I10 - Essential (primary) hypertension Bert Vargas DO Mar 04, 2017 15:53
[2017-03-04] MEDS: ATORVASTATIN 40 MG TAB PO SCH (21:58)
[2017-03-04] MEDS: LEVOFLOXACIN 500 MG PREMIX INJ 100 ML IV SCH (21:58)
[2017-03-05] VITALS (14 sets, daily range): BP systolic 145–158; BP diastolic 69–77; PULSE 51–65; RESP 17–18; TEMP 97.6–98.2; O2SAT 95–99
[2017-03-05] MEDS: CHLORHEXIDINE GLUCONATE 2 % 1 PACK (2 CLOTHS) TOP SCH (02:44)
[2017-03-05 05:10] LABS: HEMATOCRIT 37.6 % (39.0-51.0); MEAN CELL VOLUME 87.5 FL (80.0-100.0); MEAN CORPUSCULAR HEMOGLOBIN 28.2 PG (27.0-34.0); MEAN CORPUSCULAR HGB CONC 32.2 % (32.0-36.0); PLATELET COUNT 89 TH/MM3 (150-450); RED BLOOD COUNT 4.29 MIL/MM3 (4.50-5.90); RED CELL DISTRIBUTION WIDTH 14.9 % (11.6-17.2); WHITE BLOOD COUNT 15.7 TH/MM3 (4.0-11.0)
[2017-03-05 05:13] LABS: REVIEW FLAG FINAL
[2017-03-05] MEDS: HEPARIN SODIUM - SQ 10,000 UNITS/ML VIAL SQ SCH (05:40)
[2017-03-05 05:44] LABS: BICARBONATE 34.5 MEQ/L (21.0-32.0); MAGNESIUM 1.9 MG/DL (1.5-2.5); POTASSIUM 4.1 MEQ/L (3.5-5.1)
[2017-03-05] MEDS: RESP: ALBUTEROL 2.5 MG/IPRATROPIUM 0.5 MG NEB (PRN) INH (07:21)
[2017-03-05] MEDS: LACTIC ACID (AMMONIUM LACTATE) 12% LOTION 225 GM BTL TOPICAL SCH (08:33)
[2017-03-05] MEDS: CLOPIDOGREL 75 MG TAB PO SCH (08:34)
[2017-03-05] MEDS: ASPIRIN EC 325 MG TABEC PO SCH (08:34)
[2017-03-05] MEDS: CARVEDILOL 12.5 MG TAB PO SCH (08:34)
[2017-03-05] MEDS: predniSONE 10 MG TAB PO SCH (08:34)
[2017-03-05] MEDS: POLYETHYLENE GLYCOL 17 GM PKG PO SCH (08:34)
[2017-03-05] MEDS: TAMSULOSIN HCL 0.4 MG CAP PO SCH (08:34)
[2017-03-05] MEDS: AMIODARONE 200 MG TAB PO SCH (08:35)
[2017-03-05] MEDS: DOCUSATE SODIUM 50 MG/SENNA 8.6 MG TAB PO SCH (08:35)
[2017-03-05] MEDS: SODIUM CHLORIDE 0.9% FLUSH 10 ML FLUSH IV FLUSH SCH (08:35)
[2017-03-05] MEDS ORDERED: SYMB160A INH (08:50)
[2017-03-05] MEDS ORDERED: CARV12.5 PO (08:50)
[2017-03-05] MEDS ORDERED: PRED20 PO (08:50)
[2017-03-05] MEDS ORDERED: ATOR40TA16 PO (08:50)
[2017-03-05] MEDS ORDERED: TAMS5CAP PO (08:50)
[2017-03-05] MEDS ORDERED: AMIO200T PO (08:50)
[2017-03-05] MEDS ORDERED: ASPI325T33 PO (08:50)
--- NOTE | 2017-03-05 09:00 | HHI.DS ---
Discharge Summary Admission Date Feb 23, 2017 at 19:54 Discharge Date: Mar 05, 2017 Admitting Diagnosis (1) Non-ST elevation [place] (NSTEMI) ICD Code: I21.4 - Non-ST elevation (NSTEMI) myocardial infarction Status: Acute (2) Severe sepsis ICD Code: A41.9 - Sepsis, unspecified organism; R65.20 - Severe sepsis without septic shock Status: Acute (3) Hypertension ICD Code: I10 - Essential (primary) hypertension Status: Chronic (4) Ischemic cardiomyopathy ICD Code: I25.5 - Ischemic cardiomyopathy Status: Chronic (5) Paroxysmal supraventricular tachycardia ICD Code: I47.1 - Supraventricular tachycardia Status: Acute Procedures Cardiac cath Brief History - From Admission 72-year-old pleasant gentleman with past medical history of of CVA, HTN coronary artery disease status post stent placement to his mid LAD by Dr. Washington in May 2015 presents with complaints of shortness of breath that progressively worsening over last few weeks. Patient says he also slipped and fell on right hip today and could not get up for 12 hours. Denies any head trauma. He has a chronic venostatic lower extremity wounds for about last 4 months. Denies any chest pain, nausea or vomiting, abdominal pain, focal weakness or numbness. CBC/BMP: 03/05/17 0428 03/05/17 0428 Significant Findings Laboratory Tests Test 03/03/17 05:09 03/04/17 05:30 03/05/17 04:28 White Blood Count 15.7 TH/MM3 (4.0-11.0) 17.7 TH/MM3 (4.0-11.0) 15.7 TH/MM3 (4.0-11.0) Red Blood Count 4.39 MIL/MM3 (4.50-5.90) 4.41 MIL/MM3 (4.50-5.90) 4.29 MIL/MM3 (4.50-5.90) Hemoglobin 12.4 GM/DL (13.0-17.0) 12.5 GM/DL (13.0-17.0) 12.1 GM/DL (13.0-17.0) Hematocrit 38.0 % (39.0-51.0) 38.8 % (39.0-51.0) 37.6 % (39.0-51.0) Platelet Count 89 TH/MM3 (150-450) 104 TH/MM3 (150-450) 89 TH/MM3 (150-450) Activated Partial Thromboplast Time 67.4 SEC (24.3-30.1) Blood Urea Nitrogen 47 MG/DL (7-18) 41 MG/DL (7-18) Random Glucose 186 MG/DL (74-106) 122 MG/DL (74-106) Carbon Dioxide Level 33.0 MEQ/L (21.0-32.0) 34.5 MEQ/L (21.0-32.0) Anion Gap 3 MEQ/L (5-15) Estimat Glomerular Filtration Rate 60 ML/MIN (>89) 59 ML/MIN (>89) Mean Platelet Volume 11.1 FL (7.0-11.0) Imaging Last Impressions Chest X-Ray 02/27/17 0600 Signed Impressions: Service Date/Time: Monday, February 27, 2017 04:56 - CONCLUSION: Mild right hemidiaphragm elevation. No significant interval change. Moise Carpenter MD Abdomen/Pelvis CT 02/25/17 0000 Signed Impressions: Service Date/Time: Saturday, February 25, 2017 12:11 - CONCLUSION: 1. Posterior bibasilar patchiness consistent with atelectasis and/or mild infiltrates. 2. Tiny bilateral pleural effusions. 3. Uncomplicated colonic diverticulosis. 4. Markedly enlarged prostate gland. 5. Small midline ventral abdominal wall hernia containing only fat. 6. Bilobed infrarenal abdominal aortic aneurysm which measures 3.4 cm in greatest dimension. 7. Degenerative changes and scoliosis of the thoraco-lumbar spine. Vinnie Montemayor MD Hip and Pelvis X-Ray 02/23/17 0000 Signed Impressions: Service Date/Time: Thursday, February 23, 2017 18:25 - CONCLUSION: 1. Suboptimal exam due to patient size. No displaced fracture or dislocation identified. Helder Hernandez MD PE at Discharge GENERAL: NAD SKIN: Erythema and dermatitis of venous stasis on lower extremities. HEAD: Normocephalic. EYES: No scleral icterus. No injection or drainage. NECK: Supple, trachea midline. No JVD or lymphadenopathy. CARDIOVASCULAR: Regular rate and rhythm without murmurs, gallops, or rubs. RESPIRATORY: Breath sounds equal bilaterally. No accessory muscle use. GASTROINTESTINAL: Abdomen soft, non-tender, nondistended. +BS. MUSCULOSKELETAL: Upper and lower extremity edema noted. BACK: Nontender without obvious deformity. No CVA tenderness. NEURO: No gross deficits. PSYCH: Mood and affect appropriate. Pt update on day of discharge The patient was sitting up in bed. He had no acute concerns at this time. He said that he talked to somebody about going to a rehabilitation center. Discussed with nursing. Hospital Course CAD Cardiology was consulted. The pt was monitored on telemetry. Cath 03/02 showed: diffusely diseased vessels with IVUS imaging confirming moderate to severe left main disease, severe ostial and mid LAD disease though with patent proximal stent, severe diagonal disease, severe restenosis of PL branch stent, EF 30%. CT surgery was consulted. Pt was deemed too high a risk for surgery. He was continued on his cardiac regimen of ASA, Lipitor, Coreg, amiodarone and Plavix. He worked with PT/ OT for deconditioning. Case management assisted with SNF placement. He will follow up with cardiology as an outpt. COPD Pulmonology was consulted. Breathing status improved. He received nebs and steroids. Symbicort was started. He was placed on Levaquin. He will continue a prednisone taper. He will follow up with pulmonology as an outpt. BPH CT abdomen/pelvis: colonic diverticulosis. Markedly enlarged prostate gland. Small midline ventral abdominal wall hernia containing only fat. Bilobed infrarenal abdominal aortic aneurysm which measures 3.4 cm in greatest dimension. Urology was consulted. He was started on Flomax 0.4mg QD. He will continue a Olmedo. He will have outpt follow-up with urology. Bacteremia BC from 02/23: Morganella Morrulani. ID was consulted. Antibiotics were switched to Levaquin per ID. He will complete a course of PO Levaquin. Acute on chronic renal failure Improved. We held his ACEi and HCTZ. Will resume ACEi upon discharge. Pt Condition on Discharge: Stable Discharge Disposition: Discharge to SNF Discharge Time: > 30 minutes Discharge Instructions DIET: Follow Instructions for: Heart Healthy Diet Activities you can perform: Weight Bearing as Paola Follow up Referrals: Cardiology - 1 Week with Diallo Thompson MD PCP Follow-up - 1 Week Pulmonology - 1 Week with Tosha Hightower MD Urology - 1 Week with Dharmesh Arroyo DO New Medications: Budesonide-Formoterol Inh (Symbicort Inh) 160-4.5 Mcg/Act Aero 2 PUFF INH Q12HR, #1 INHALER 0 Refills Levofloxacin (Levofloxacin) 750 Mg Tablet 750 MG PO DAILY for Infection, #5 TAB 0 Refills Prednisone (Prednisone) 20 Mg Tab 20 MG PO DAILY for Broncospasm, #5 TAB 0 Refills Amiodarone (Amiodarone) 200 Mg Tab 200 MG PO DAILY for Heart, #[address] (Aspirin EC) 325 Mg Tabdr 325 MG PO DAILY for Heart, #30 TAB Atorvastatin (Atorvastatin) 40 Mg Tab 40 MG PO HS for Chemotherapy Management, #30 TAB Carvedilol (Coreg) 12.5 Mg Tab 25 MG PO BID for Blood Pressure Management, #60 TAB Tamsulosin (Flomax) 0.4 Mg Cap 0.4 MG PO DAILY for retention for 30 Days, #30 CAP Continued Medications: Albuterol Sulfate 8 GM Inhaler (Ventolin Hfa) 8 Gm Aero 1 PUFF INH Q4H PRN for wh, #1 BOX * SHAKE WELL BEFORE USE * Clopidogrel Bisulfate (Plavix) 75 Mg Tab 75 MG PO DAILY for NSTEMI for 31 Days, TAB Nitroglycerin (Nitroglycerin Tab 0.4 Mg Sl) 0.4 Mg Subl 0.4 MG .XX prn for chest pain for 31 Days, TAB Ramipril (Ramipril) 2.5 Mg Cap 2.5 MG PO DAILY for NSTEMI for 31 Days, CAP Discontinued Medications: Aspirin (Aspirin Low Strength) 81 Mg Chw 162 MG PO DAILY for NSTEMI for 31 Days, EA Atorvastatin (Lipitor 10 mg tab) 10 Mg Tab 10 MG PO HS for HLP for 31 Days, TAB Carvedilol 3.125 mg (Coreg 3.125 mg) 3.125 Mg Tab 3.125 MG PO BID for NSTEMI for 31 Days, TAB Hydrochlorothiazide (Hydrochlorothiazide) 50 Mg Tab 50 MG PO DAILY Oxycodone W/ Acetaminophen (Oxycodone/Acetaminophen 5-325 mg/5Ml) 5 mg/325 mg Tab 1 TAB PO Q6H PRN for PAIN SCALE 3 TO 5, #10 TAB Potassium Chloride (K-Dur) 10 Meq Tabcr 10 MEQ PO DAILY, TABCR Bert Vargas DO Mar 05, 2017 09:00
[2017-03-05] MEDS ORDERED: LEVO750T3 PO (09:01)
--- NOTE | 2017-03-05 09:03 | HHI.DCPOC ---
Discharge Care Plan Diagnosis: (1) Bacteremia (2) Paroxysmal supraventricular tachycardia (3) Ischemic cardiomyopathy (4) Non-ST elevation [place] (NSTEMI) Goals to Promote Your Health * To prevent worsening of your condition and complications * To maintain your health at the optimal level Directions to Meet Your Goals Take your medications as prescribed Follow your dietary instruction Follow activity as directed Keep your appointments as scheduled Take your immunizations and boosters as scheduled If your symptoms worsen call your PCP, if no PCP go to Urgent Care Center or Emergency Room Smoking is Dangerous to Your Health. Avoid second hand smoke Call the 24-hour hour crisis hotline for domestic abuse at Bert Vargas DO Mar 05, 2017 09:03
== END 2017-03-05 12:16 | DRG 871 ==
LOC: NEPC 17:50 → NEDA 19:54 → HIME 02-24 00:40 → HCPC 02-28 18:06
PROVIDERS: ADMIT Hospitalist; ATTEND Hospitalist
PROC: 5A09357 Assistance with Respiratory Ventilation, Less than 24 Consecutive Hours, Continuous Positive Airway Pressure (ICD-10-PCS; principal; 2017-02-23)
PROC: 0T9B70Z Drainage of Bladder with Drainage Device, Via Natural or Artificial Opening (ICD-10-PCS; 2017-02-26)
PROC: 4A023N7 Measurement of Cardiac Sampling and Pressure, Left Heart, Percutaneous Approach (ICD-10-PCS; 2017-03-02)
PROC: B2111ZZ Fluoroscopy of Multiple Coronary Arteries using Low Osmolar Contrast (ICD-10-PCS; 2017-03-02)
PROC: B2151ZZ Fluoroscopy of Left Heart using Low Osmolar Contrast (ICD-10-PCS; 2017-03-02)
DX: A41.9 Sepsis, unspecified organism (principal); J18.9 Pneumonia, unspecified organism; I21.4 Non-ST elevation (NSTEMI) myocardial infarction; J96.01 Acute respiratory failure with hypoxia; N17.9 Acute kidney failure, unspecified; M62.82 Rhabdomyolysis; E87.2 Acidosis; N13.8 Other obstructive and reflux uropathy; I47.1 Supraventricular tachycardia; I48.91 Unspecified atrial fibrillation; J44.0 Chronic obstructive pulmonary disease with (acute) lower respiratory infection; L03.115 Cellulitis of right lower limb; L03.116 Cellulitis of left lower limb; T82.855A Stenosis of coronary artery stent, initial encounter; N39.0 Urinary tract infection, site not specified; E66.01 Morbid (severe) obesity due to excess calories; R65.20 Severe sepsis without septic shock; S70.01XA Contusion of right hip, initial encounter; W01.0XXA Fall on same level from slipping, tripping and stumbling without subsequent striking against object, initial encounter; F17.210 Nicotine dependence, cigarettes, uncomplicated; N18.9 Chronic kidney disease, unspecified; I12.9 Hypertensive chronic kidney disease with stage 1 through stage 4 chronic kidney disease, or unspecified chronic kidney disease; I25.118 Atherosclerotic heart disease of native coronary artery with other forms of angina pectoris; F43.9 Reaction to severe stress, unspecified; E78.5 Hyperlipidemia, unspecified; I25.2 Old myocardial infarction; I25.5 Ischemic cardiomyopathy; I45.10 Unspecified right bundle-branch block; I71.4 Abdominal aortic aneurysm, without rupture; R33.8 Other retention of urine; N40.1 Benign prostatic hyperplasia with lower urinary tract symptoms; I87.8 Other specified disorders of veins; I89.0 Lymphedema, not elsewhere classified; Y92.009 Unspecified place in unspecified non-institutional (private) residence as the place of occurrence of the external cause; Y71.3 Surgical instruments, materials and cardiovascular devices (including sutures) associated with adverse incidents; I35.0 Nonrheumatic aortic (valve) stenosis; K57.30 Diverticulosis of large intestine without perforation or abscess without bleeding; K43.9 Ventral hernia without obstruction or gangrene; Z95.5 Presence of coronary angioplasty implant and graft; Z86.73 Personal history of transient ischemic attack (TIA), and cerebral infarction without residual deficits; Z88.0 Allergy status to penicillin; Z23 Encounter for immunization
CPT/HCPCS: 36600; 71010; 73502; 74176; 76937; 80048; 80053; 80202; 81001; 82272; 82550; 82552; 82805; 83605; 83735; 84100; 84484; 85002; 85007; 85025; 85027; 85610; 85730; 87040; 87070; 87077; 87086; 87186; 87205; 87641; 90686; 92978; 93005; 93306; 93458; 94002; 94003; 94060; 94640; 94664; 96374; 96375; C1753; C1769; C1887; C1893; J1644; J1940; J1956; J2250; J2920; J2930; J3370; J7030; J7040; J7512; Q2038; Q9963; Q9967